=== PATIENT | male | born 1955 | race Caucasian/White ===

== ENCOUNTER 2016-11-01 14:25 | Emergency (ER) | payer OTHER ==
[~2016-11-01] VITALS: Ht 172.7 cm; Wt 90.0 kg
[~2016-11-01 14:25] MED LIST: ATOR10TA15 PO; CARV3.125 PO; CLON.5 PO; CYCL1TAB29 PO; GETGO ROLLING W1 MI1; HYDR-3288 PO; LEVE500 PO; LURA40 PO; NEUR400C PO; OMEP40CA2 PO; SYMB80AE INH; TRAZ50TA12 PO; VENTAER INH; ZOLO100T PO
[2016-11-01 14:35] VITALS: BP 138/74; PULSE 92; RESP 15; TEMP 98; O2SAT 99
[2016-11-01 14:37] VITALS: TEMP 100.1
[2016-11-01 15:28] VITALS: BP 125/90; PULSE 82; RESP 16; O2SAT 98
[2016-11-01] MEDS ORDERED: KETOROLAC TROMETHAMINE 30 MG/ML (IVP) VIAL IVP ONE (15:30)
[2016-11-01] MEDS ORDERED: CLINDAMYCIN INJ 600 MG in SODIUM CHLORIDE 0.9% INJ 100 ML IV ONE (15:30)
[2016-11-01 15:46] LABS: AUTOMATED NEUTROPHIL # 14.4 TH/MM3 (1.8-7.7); BASOPHIL # 0.1 TH/MM3 (0-0.2); BASOPHIL % 0.5 % (0.0-2.0); EOSINOPHIL # 0.1 TH/MM3 (0-0.4); EOSINOPHIL % 0.4 % (0.0-4.0); HEMATOCRIT 44.7 % (39.0-51.0); HEMO FLAGS DIFF FINAL; LYMPH % 7.4 % (9.0-44.0); LYMPHOCYTE # 1.3 TH/MM3 (1.0-4.8); MEAN CELL VOLUME 103.3 FL (80.0-100.0); MEAN CORPUSCULAR HEMOGLOBIN 36.1 PG (27.0-34.0); MEAN CORPUSCULAR HGB CONC 34.9 % (32.0-36.0); NEUT % 81.7 % (16.0-70.0); PLATELET COUNT 252 TH/MM3 (150-450); RED BLOOD COUNT 4.33 MIL/MM3 (4.50-5.90); RED CELL DISTRIBUTION WIDTH 13.6 % (11.6-17.2); WHITE BLOOD COUNT 17.6 TH/MM3 (4.0-11.0)
[2016-11-01 16:02] LABS: BICARBONATE 26.3 MEQ/L (21.0-32.0); POTASSIUM 3.8 MEQ/L (3.5-5.1)
--- NOTE | 2016-11-01 16:20 | PD ---
HPI Chief Complaint: Skin Problem Time Seen by Provider: 16:16 Travel History International Travel<30 days: No Contact w/Intl Traveler<30days: No Traveled to known affect area: No History of Present Illness HPI 61-year-old male that presents to the ED for evaluation of lower leg swelling and pain. Per patient she's had this for the past 5 days. Patient denies any injury. He is homeless. Patient is legally blind. He does state that he has some weakness and fever. He has not seen anybody for this. He denies any chest pain or shortness of breath. No back pain. No urinary or bowel movement issues. Per patient the left leg is worse than the right. He does have a history of MRSA. No obvious history of IV drug abuse. He does have a history of substance abuse in the past. Denies any injuries. He does have open wounds to both lower legs with left worse than right. PFSH Past Medical History Hx Anticoagulant Therapy: Yes Autoimmune Disease: No Anxiety: Yes Depression: Yes Heart Rhythm Problems: No Cancer: No Cardiovascular Problems: Yes ([place]) High Cholesterol: Yes Chemotherapy: No Chest Pain: Yes Congestive Heart Failure: No COPD: Yes Cerebrovascular Accident: Yes Coronary Artery Disease: Yes Diabetes: No Diminished Hearing: No Deep Vein Thrombosis: Yes (per hx,,,LEFT LEG) Endocrine: No Genitourinary: No Headaches: No Hypertension: Yes Immune Disorder: No Implanted Vascular Access Dvce: No Musculoskeletal: No Neurologic: Yes Psychiatric: Yes Reproductive: No Respiratory: Yes (COPD) Immunizations Current: Yes Migraines: Yes Myocardial Infarction: Yes (per hx...2011) Pneumonia: Yes Seizures: Yes (Per hx) Influenza Vaccination: Yes Past Surgical History Abdominal Surgery: Yes ("RPG") AICD: No Arteriovenous Shunt: No Cardiac Surgery: No Ear Surgery: No Endocrine Surgery: No Eye Surgery: No Genitourinary Surgery: No Hysterectomy: No Insulin Pump: No Joint Replacement: No Oral Surgery: No Pacemaker: No Thoracic Surgery: No Tonsillectomy: Yes Other Surgery: Yes (brachial plexis) Social History Alcohol Use: Yes (per hx...2 BEERS DAILY ) Tobacco Use: Yes (/ PPD) Substance Use: Yes (pt denies ) Allergies-Medications (Allergen,Severity, Reaction): Coded Allergies: Contrast Media (Verified Allergy, Severe, ANAPHYLACTIC SHOCK, 11/01/16) Dantrium (Verified Allergy, Severe, LIVER DISEASE, 11/01/16) Halcion (Verified Allergy, Severe, CRAZY, 11/01/16) Iodine (Verified Allergy, Severe, anaphylaxis, 11/01/16) Tegretol (Verified Allergy, Severe, APLASTIC ANEMIA, 11/01/16) Shellfish (Verified Allergy, Unknown, 11/01/16) *MDRO Multi-Drug Resistant Organism (Verified Adverse Reaction, Unknown, ) MRSA (ankle) - 01/16/16 MRSA PCR screen NEGATIVE 08/10/16 & 08/12/16 Cleared per Infection Control Reported Meds & Prescriptions Reported Meds & Active Scripts Active Diclofenac Sodium DR (Diclofenac Sodium) 75 Mg Tabdr 75 Mg PO BID PRN Keflex (Cephalexin) 500 Mg Capsule 500 Mg PO Q8H 10 Days Bactrim DS (Sulfamethoxazole-Trimethoprim) 800-160 Mg Tab 1 Tab PO BID 10 Days Omeprazole 40 Mg Cap 40 Mg PO DAILY Neurontin (Gabapentin) 400 Mg Cap 400 Mg PO TID Klonopin (Clonazepam) 0.5 Mg Tab 0.5 Mg PO Q12HR Ventolin Hfa 18 GM Inh (Albuterol Sulfate) 90 Mcg/Act Aer 2 Puff INH Q2HR PRN Symbicort Inh (Budesonide/Formoterol Fumarate) 80-4.5 Mcg/Act Aero 1 Puff INH Q12HR Trazodone (Trazodone HCl) 50 Mg Tab 50 Mg PO HS PRN Keppra (Levetiracetam) 500 Mg Tab 500 Mg PO BID Coreg (Carvedilol) 3.125 Mg Tab 3.125 Mg PO BID Atorvastatin (Atorvastatin Calcium) 10 Mg Tab 10 Mg PO HS Reported Zoloft (Sertraline HCl) 100 Mg Tab 100 Mg PO BID [place] (Hydrocodone-Acetaminophen) 7.5-325 mg Tab 1 Tab PO Q4H PRN Flexeril (Cyclobenzaprine HCl) 10 Mg Tab 10 Mg PO TID PRN Review of Systems Except as stated in HPI: all other systems reviewed are Neg Physical Exam Narrative GENERAL: SKIN: Warm and dry. HEAD: Atraumatic. Normocephalic. EYES: Pupils equal and round. No scleral icterus. No injection or drainage. ENT: No nasal bleeding or discharge. Mucous membranes pink and moist. Tongue is midline. No uvula deviation. NECK: Trachea midline. No JVD. CARDIOVASCULAR: Regular rate and rhythm. No murmurs, S3, S4. RESPIRATORY: No accessory muscle use. Clear to auscultation. Breath sounds equal bilaterally. GASTROINTESTINAL: Abdomen soft, non-tender, nondistended. Hepatic and splenic margins not palpable. MUSCULOSKELETAL: Extremities without clubbing, cyanosis, or edema. No obvious deformities. Full range of motion of the upper and lower extremities bilaterally. Patient does have 1+ pitting edema in the lower legs left worse than right. Left leg has erythema is warm to the touch. Patient does have pus coming out of open wounds on the right and left leg with the left leg more noticeable. No obvious abscesses noted. 2+ pulses bilaterally. NEUROLOGICAL: Awake and alert. No obvious cranial nerve deficits. Motor grossly within normal limits. Five out of 5 muscle strength in the arms and legs. Normal speech. PSYCHIATRIC: Appropriate mood and affect; insight and judgment normal. Data Data Last Documented VS Vital Signs Date Time Temp Pulse Resp B/P Pulse Ox O2 Delivery O2 Flow Rate FiO2 11/01/16 15:28 82 16 125/90 98 Room Air 11/01/16 14:37 100.1 Orders Basic Metabolic Panel (Bmp) (11/01/16 15:22) Complete Blood Count With Diff (11/01/16 15:22) Blood Culture (11/01/16 15:22) Wound Culture And Gram Stain (11/01/16 15:22) Iv Access Insert/Monitor (11/01/16 15:22) Ketorolac Inj (Toradol Inj) (11/01/16 15:30) Clindamycin Inj (Cleocin Inj) (11/01/16 15:30) Us Leg Venous Doppler Bilat (11/01/16 ) Labs Laboratory Tests Test 11/01/16 15:30 White Blood Count 17.6 TH/MM3 Red Blood Count 4.33 MIL/MM3 Hemoglobin 15.6 GM/DL Hematocrit 44.7 % Mean Corpuscular Volume 103.3 FL Mean Corpuscular Hemoglobin 36.1 PG Mean Corpuscular Hemoglobin 34.9 % Concent Red Cell Distribution Width 13.6 % Platelet Count 252 TH/MM3 Mean Platelet Volume 8.1 FL Neutrophils (%) (Auto) 81.7 % Lymphocytes (%) (Auto) 7.4 % Monocytes (%) (Auto) 10.0 % Eosinophils (%) (Auto) 0.4 % Basophils (%) (Auto) 0.5 % Neutrophils # (Auto) 14.4 TH/MM3 Lymphocytes # (Auto) 1.3 TH/MM3 Monocytes # (Auto) 1.8 TH/MM3 Eosinophils # (Auto) 0.1 TH/MM3 Basophils # (Auto) 0.1 TH/MM3 CBC Comment DIFF FINAL Differential Comment Sodium Level 134 MEQ/L Potassium Level 3.8 MEQ/L Chloride Level 99 MEQ/L Carbon Dioxide Level 26.3 MEQ/L Anion Gap 9 MEQ/L Blood Urea Nitrogen 9 MG/DL Creatinine 0.91 MG/DL Estimat Glomerular Filtration 84 ML/MIN Rate Random Glucose 95 MG/DL Calcium Level 8.8 MG/DL MDM Medical Decision Making Medical Screen Exam Complete: Yes Emergency Medical Condition: Yes Medical Record Reviewed: Yes Interpretation(s) CBC & BMP Diagram 11/01/16 15:30 Last Impressions Lower Extremity Ultrasound 11/01/16 0000 Signed Impressions: Service Date/Time: Tuesday, November 01, 2016 15:50 - CONCLUSION: 1. Lower extremity edema but no DVT in either lower extremity. 2. Enlarged lymph nodes in each groin measuring 2.5 cm on the right and 3.1 cm on the left. Anshul Davis MD Differential Diagnosis Cellulitis versus MRSA versus DVT versus sepsis versus abscess Narrative Course 61-year-old male that presents to the ED for evaluation of lower leg swelling and pain. Patient was properly examined and was found to have signs and symptoms consistent appears to be likely cellulitis. Labs and imaging ordered. Patient was started on IV clindamycin. Labs and imaging showed leukocytosis and lymphadenopathy. Case was discussed in my attending Dr. Kemp who when evaluated the patient with me. He recommends at this time outpatient trial of antibiotics as patient has not had any antibiotics recently. This was discussed with the patient was in agreement with plan. Patient was given prescription for Bactrim and Keflex as well as diclofenac sodium for pain. Told to recheck in 48 hours if not better. See ED worsening symptoms. Follow with PCP. Sepsis Criteria SIRS Criteria (2 or more): WBC > 19908, < 4000 or > 10% bands Diagnosis Primary Impression: Cellulitis Qualified Code: L03.119 - Cellulitis of lower extremity, unspecified laterality Patient Instructions: General Instructions Additional Instructions: Take medications as prescribed. Follow with PCP. See ED for worsening symptoms. Recheck in 48 hours if not better Med/Other Pt SpecificInfo: Prescription(s) given Scripts Diclofenac Sodium DR 75 Mg Tabdr75 Mg PO BID PRN (PAIN SCALE 1 TO 10) #20 TAB Prov:Сергей Card MD 11/01/16 Cephalexin (Keflex)500 Mg [id number] Mg PO Q8H 10 Days Ref 0 Prov:Сергей Card MD 11/01/16 Sulfamethoxazole-Trimethoprim (Bactrim DS)800-160 Mg Tab1 Tab PO BID 10 Days Prov:Сергей Card MD 11/01/16 Disposition: 01 DISCHARGE HOME Condition: Stable William Sharp Nov 01, 2016 16:20
--- NOTE | 2016-11-01 16:24 | RADRPT ---
EXAM DATE/TIME: 11/01/2016 15:50 [facility] COMPARISON: No previous studies available for comparison. INDICATIONS : Bilateral leg swelling. MEDICAL HISTORY : Myocardial infarction. Hypercholesterolemia. Legally blind. CVA. Seizures. Migraines. Coronary arter y disease. HTN. COPD. Chest pain. DVT. Pneumonia. Blood transfusions. MRSA. SURGICAL HISTORY : Tonsillectomy. Left shoulder. Left knee. Brachial plexis. ENCOUNTER: Initial ACUITY: 1 day PAIN SCORE: 4/10 LOCATION: Bilateral leg. TECHNIQUE: Venous ultrasound of the left and right leg was performed from the inguinal ligament to the proximal calf. Real-time, color Doppler and spectral tracing, compression and augmentation techniques were us ed. FINDINGS: RIGHT LEG: There is normal compressibility of the deep venous system from the inguinal region to the proximal ca lf. No echogenic clot is seen in the lumen of the common femoral, femoral, popliteal, and posterior tibial veins. There is a normal response of the venous system to proximal and distal augmentation an d respiration. LEFT LEG: There is normal compressibility of the deep venous system from the inguinal region to the proximal ca lf. No echogenic clot is seen in the lumen of the common femoral, femoral, popliteal, and posterior tibial veins. There is a normal response of the venous system to proximal and distal augmentation an d respiration. CONCLUSION: 1. Lower extremity edema but no DVT in either lower extremity. 2. Enlarged lymph nodes in each groin measuring 2.5 cm on the right and 3.1 cm on the left. Anshul Davis MD on November 01, 2016 at 16:22 Board Certified Radiologist. This report was verified electronically.
[2016-11-01] MEDS ORDERED: ZOLO100T PO (16:37)
[2016-11-01] MEDS ORDERED: DICL75TA PO (16:47)
[2016-11-01] MEDS ORDERED: CEPH-460 PO (16:47)
[2016-11-01] MEDS ORDERED: BACT800T5 PO (16:47)
== END 2016-11-01 17:36 | disposition home or self-care (01) ==
LOC: NEPC 14:25
DX: L03.119 Cellulitis of unspecified part of limb (principal); E78.00 Pure hypercholesterolemia, unspecified; Z86.718 Personal history of other venous thrombosis and embolism; Z79.01 Long term (current) use of anticoagulants; Z86.14 Personal history of Methicillin resistant Staphylococcus aureus infection
CPT/HCPCS: 80048; 85025; 86403; 87040; 87070; 87186; 93970; 96365; 96375; 99285; J1885; 87205

== ENCOUNTER 2016-11-01 18:51 | Emergency (ER) | payer OTHER ==
[~2016-11-01] VITALS: Ht 172.7 cm; Wt 90.0 kg
[~2016-11-01 18:51] MED LIST changes: +BACT800T5 PO; +CEPH-460 PO; +DICL75TA PO
[2016-11-01 19:00] VITALS: BP 148/78; PULSE 82; RESP 15; TEMP 97.8; O2SAT 99
--- NOTE | 2016-11-01 21:51 | PD ---
HPI Chief Complaint: Medical Clearance Time Seen by Provider: 21:00 Travel History International Travel<30 days: No Contact w/Intl Traveler<30days: No Traveled to known affect area: No History of Present Illness HPI Patient back to the emergency department after being seen here a few hours ago in discharge. Patient states he went to the bus stop but did not catch his bus so he decided the emergency department for possible additional treatments and something to eat. Patient denies any new or change in symptoms. Denies any known fever, nausea, vomiting or chest pain, shortness of breath, numbness or tingling, or new injuries. Patient denies anything making this better or worse. History Past Medical Histgory Hx Cancer: No Hx Chemotherapy: No Social History Alcohol Use: Yes (per hx...2 BEERS DAILY ) Tobacco Use: Yes (3/4 PPD) Allergies-Medications (Allergen,Severity, Reaction): Coded Allergies: Contrast Media (Verified Allergy, Severe, ANAPHYLACTIC SHOCK, 11/01/16) Dantrium (Verified Allergy, Severe, LIVER DISEASE, 11/01/16) Halcion (Verified Allergy, Severe, CRAZY, 11/01/16) Iodine (Verified Allergy, Severe, anaphylaxis, 11/01/16) Tegretol (Verified Allergy, Severe, APLASTIC ANEMIA, 11/01/16) Shellfish (Verified Allergy, Unknown, 11/01/16) *MDRO Multi-Drug Resistant Organism (Verified Adverse Reaction, Unknown, ) MRSA (ankle) - 01/16/16 MRSA PCR screen NEGATIVE 08/10/16 & 08/12/16 Cleared per Infection Control Reported Meds & Prescriptions Reported Meds & Active Scripts Active Diclofenac Sodium DR (Diclofenac Sodium) 75 Mg Tabdr 75 Mg PO BID PRN Keflex (Cephalexin) 500 Mg Capsule 500 Mg PO Q8H 10 Days Bactrim DS (Sulfamethoxazole-Trimethoprim) 800-160 Mg Tab 1 Tab PO BID 10 Days Omeprazole 40 Mg Cap 40 Mg PO DAILY Neurontin (Gabapentin) 400 Mg Cap 400 Mg PO TID Klonopin (Clonazepam) 0.5 Mg Tab 0.5 Mg PO Q12HR Ventolin Hfa 18 GM Inh (Albuterol Sulfate) 90 Mcg/Act Aer 2 Puff INH Q2HR PRN Symbicort Inh (Budesonide/Formoterol Fumarate) 80-4.5 Mcg/Act Aero 1 Puff INH Q12HR Trazodone (Trazodone HCl) 50 Mg Tab 50 Mg PO HS PRN Keppra (Levetiracetam) 500 Mg Tab 500 Mg PO BID Coreg (Carvedilol) 3.125 Mg Tab 3.125 Mg PO BID Atorvastatin (Atorvastatin Calcium) 10 Mg Tab 10 Mg PO HS Reported Zoloft (Sertraline HCl) 100 Mg Tab 100 Mg PO BID [place] (Hydrocodone-Acetaminophen) 7.5-325 mg Tab 1 Tab PO Q4H PRN Flexeril (Cyclobenzaprine HCl) 10 Mg Tab 10 Mg PO TID PRN Review of Systems Except as stated in HPI: all other systems reviewed are Neg Physical Exam Narrative GENERAL: Well-developed, overly nourished, in no acute distress, and non-ill appearing. SKIN: Patient has cellulitis of left lower extremity is mildly febrile, erythematous, and nontender. There is no induration, fluctuation, drainage, or crepitus. HEAD: Atraumatic. Normocephalic. EYES: Pupils equal and round. EOMI. No scleral icterus. No injection or drainage. ENT: No nasal bleeding or discharge. Mucous membranes pink and moist. NECK: Trachea midline. Supple. No nuclear rigidity. CARDIOVASCULAR: Regular rate and rhythm. No murmur appreciated. RESPIRATORY: No accessory muscle use. No respiratory distress. Clear to auscultation. Breath sounds equal bilaterally. MUSCULOSKELETAL: No obvious deformities. No clubbing. No cyanosis. Soft tissue swelling of left lower extremities. Full range of motion. NEUROLOGICAL: Awake and alert. No obvious cranial nerve deficits. Motor grossly within normal limits. Normal speech. PSYCHIATRIC: Appropriate mood and affect; insight and judgment normal. Data Data Last Documented VS Vital Signs Date Time Temp Pulse Resp B/P Pulse Ox O2 Delivery O2 Flow Rate FiO2 11/01/16 19:00 97.8 82 15 148/78 99 MDM Medical Screen Exam Complete: Yes Emergency Medical Condition: No Narrative Course History and physical exam findings are not consistent with an emergent medical condition. Previous laboratories were reviewed. Discussed patient with Dr. Warren, who is in agreement with plan of care. Instructed to take antibiotic as previously prescribed He was given the option of receiving additional care, but has declined. Therefore the appropriate counseling recommendations were discussed with the patient and he was instructed to follow-up with his primary care physician as soon as possible for reevaluation and return here in 24-48 hours for recheck as previously instructed. Patient was also informed of community resources from which he can obtain additional care. He is agreeable and verbalizes an understanding of the proposed plan. The patient states he will immediately return to the emergency department if his current complaints do not improve, new symptoms arise, or emergent condition develops. Patient ambulated out of the emergency department without difficulty. Primary Impression: Encounter for medical screening examination Disposition: [facility]-ED USE ONLY Condition: Stable Wyatt Gutierrez Nov 01, 2016 21:51
== END 2016-11-01 21:22 | disposition left against medical advice (07) ==
LOC: NEPD 18:51
DX: Z02.9 Encounter for administrative examinations, unspecified (principal)
CPT/HCPCS: 99281

== ENCOUNTER 2017-03-17 16:09 | Inpatient (IN) | payer OTHER ==
[~2017-03-17] VITALS: Ht 175.3 cm; Wt 92.4 kg
[~2017-03-17 16:09] MED LIST changes: +CYCL10TA PO; -CYCL1TAB29 PO; -GETGO ROLLING W1 MI1; -LURA40 PO
[2017-03-17 16:10] VITALS: BP 136/86; PULSE 68; RESP 16; TEMP 98.4; O2SAT 96
[2017-03-17 17:53] LABS: AUTOMATED NEUTROPHIL # 4.6 TH/MM3 (1.8-7.7); BASOPHIL # 0.1 TH/MM3 (0-0.2); BASOPHIL % 0.8 % (0.0-2.0); EOSINOPHIL # 0.2 TH/MM3 (0-0.4); EOSINOPHIL % 2.1 % (0.0-4.0); HEMATOCRIT 42.1 % (39.0-51.0); HEMO FLAGS DIFF FINAL; LYMPH % 31.2 % (9.0-44.0); LYMPHOCYTE # 2.6 TH/MM3 (1.0-4.8); MEAN CORPUSCULAR HEMOGLOBIN 37.5 PG (27.0-34.0); NEUT % 55.9 % (16.0-70.0); PLATELET COUNT 146 TH/MM3 (150-450); RED BLOOD COUNT 3.94 MIL/MM3 (4.50-5.90); RED CELL DISTRIBUTION WIDTH 12.9 % (11.6-17.2); WHITE BLOOD COUNT 8.3 TH/MM3 (4.0-11.0)
[2017-03-17 18:30] LABS: ALT (GPT) 32 U/L (12-78); ANION GAP 7 MEQ/L (5-15); AST (GOT) 30 U/L (15-37); BICARBONATE 24.8 MEQ/L (21.0-32.0); BLOOD UREA NITROGEN 10 MG/DL (7-18); CHLORIDE 105 MEQ/L (98-107); GLOMERULAR FILTRATION RATE 91 ML/MIN (>89); POTASSIUM 3.5 MEQ/L (3.5-5.1); SODIUM (NA) 137 MEQ/L (136-145)
[2017-03-17 18:32] LABS: ALKALINE PHOSPHATASE 67 U/L (45-117); TOTAL BILIRUBIN ADULT 0.4 MG/DL (0.2-1.0)
--- NOTE | 2017-03-17 19:18 | PD ---
HPI Chief Complaint: Psychiatric Symptoms Time Seen by Provider: 19:17 Travel History International Travel<30 days: No Contact w/Intl Traveler<30days: No Traveled to known affect area: No History of Present Illness HPI 61-year-old male presents to the ED under Harper act for psychiatric evaluation. According to the Harper act paper work the patient states he is suicidal and has a plan. On evaluation the patient is refusing to answer any questions about history or allow us to evaluate him. PFSH Past Medical History Hx Anticoagulant Therapy: Yes Autoimmune Disease: No Anxiety: Yes Depression: Yes Heart Rhythm Problems: No Cancer: No Cardiovascular Problems: Yes ([place]) High Cholesterol: Yes Chemotherapy: No Chest Pain: Yes Congestive Heart Failure: No COPD: Yes Cerebrovascular Accident: Yes Coronary Artery Disease: Yes Diabetes: No Diminished Hearing: No Deep Vein Thrombosis: Yes (per hx,,,LEFT LEG) Endocrine: No Gastrointestinal Disorders: No Genitourinary: No Headaches: No Hypertension: Yes Immune Disorder: No Implanted Vascular Access Dvce: No Musculoskeletal: No Neurologic: Yes Psychiatric: Yes Reproductive: No Respiratory: Yes (COPD) Immunizations Current: Yes Migraines: Yes Myocardial Infarction: Yes (per hx...2011) Pneumonia: Yes Seizures: Yes (Per hx) Past Surgical History Abdominal Surgery: Yes ("RPG") AICD: No Arteriovenous Shunt: No Cardiac Surgery: No Ear Surgery: No Endocrine Surgery: No Eye Surgery: No Genitourinary Surgery: No Hysterectomy: No Insulin Pump: No Joint Replacement: No Neurologic Surgery: No Oral Surgery: No Pacemaker: No Thoracic Surgery: No Tonsillectomy: Yes Other Surgery: Yes (brachial plexis) Social History Alcohol Use: Yes (per hx...2 BEERS DAILY ) Tobacco Use: Yes (3/4 PPD) Substance Use: Yes (pt denies ) Allergies-Medications (Allergen,Severity, Reaction): Coded Allergies: carbamazepine (Unverified Allergy, Severe, APLASTIC ANEMIA, 03/17/17) dantrolene (Unverified Allergy, Severe, LIVER DISEASE, 03/17/17) diatrizoate meglumine (Unverified Allergy, Severe, ANAPHYLACTIC SHOCK, 03/17/17) gadobenic acid (Unverified Allergy, Severe, ANAPHYLACTIC SHOCK, 03/17/17) gadodiamide (Unverified Allergy, Severe, ANAPHYLACTIC SHOCK, 03/17/17) gadoteridol (Unverified Allergy, Severe, ANAPHYLACTIC SHOCK, 03/17/17) iodine (Unverified Allergy, Severe, anaphylaxis, 03/17/17) iodixanol (Unverified Allergy, Severe, ANAPHYLACTIC SHOCK, 03/17/17) iohexol (Unverified Allergy, Severe, ANAPHYLACTIC SHOCK, 03/17/17) potassium iodide (Unverified Allergy, Severe, anaphylaxis, 03/17/17) povidone-iodine (Unverified Allergy, Severe, anaphylaxis, 03/17/17) sodium iodide (Unverified Allergy, Severe, anaphylaxis, 03/17/17) sodium iodide (Unverified Allergy, Severe, anaphylaxis, 03/17/17) triazolam (Unverified Allergy, Severe, CRAZY, 03/17/17) shellfish derived (Unverified Allergy, Unknown, 03/17/17) *MDRO Multi-Drug Resistant Organism (Verified Adverse Reaction, Unknown, 03/17/17) MRSA (ankle) - 01/16/16 MRSA PCR screen NEGATIVE 08/10/16 & 08/12/16 Cleared per Infection Control Reported Meds & Prescriptions Reported Meds & Active Scripts Active Diclofenac Sodium DR (Diclofenac Sodium) 75 Mg Tabdr 75 Mg PO BID PRN Keflex (Cephalexin) 500 Mg Capsule 500 Mg PO Q8H 10 Days Bactrim DS (Sulfamethoxazole-Trimethoprim) 800-160 Mg Tab 1 Tab PO BID 10 Days Omeprazole 40 Mg Cap 40 Mg PO DAILY Neurontin (Gabapentin) 400 Mg Cap 400 Mg PO TID Klonopin (Clonazepam) 0.5 Mg Tab 0.5 Mg PO Q12HR Ventolin Hfa 18 GM Inh (Albuterol Sulfate) 90 Mcg/Act Aer 2 Puff INH Q2HR PRN Symbicort Inh (Budesonide/Formoterol Fumarate) 80-4.5 Mcg/Act Aero 1 Puff INH Q12HR Trazodone (Trazodone HCl) 50 Mg Tab 50 Mg PO HS PRN Keppra (Levetiracetam) 500 Mg Tab 500 Mg PO BID [place] (Carvedilol) 3.125 Mg Tab 3.125 Mg PO BID Atorvastatin (Atorvastatin Calcium) 10 Mg Tab 10 Mg PO HS Reported Zoloft (Sertraline HCl) 100 Mg Tab 100 Mg PO BID [place] (Hydrocodone-Acetaminophen) 7.5-325 mg Tab 1 Tab PO Q4H PRN Flexeril (Cyclobenzaprine HCl) 10 Mg Tab 10 Mg PO TID PRN Review of Systems ROS Limitations: Uncooperative, Refused Except as stated in HPI: all other systems reviewed are Neg Physical Exam Exam Limitations: Uncooperative, Refused Narrative GENERAL: Well-nourished, well-developed white male, sitting in a chair in no acute distress. SKIN: Focused skin assessment warm/dry. HEAD: Normocephalic. EYES: No scleral icterus. No injection or drainage. RESPIRATORY: No accessory muscle use. GASTROINTESTINAL: Nondistended. MUSCULOSKELETAL: No cyanosis, or edema. Left arm is in a sling. BACK: No obvious deformity Data Data Last Documented VS Vital Signs Date Time Temp Pulse Resp B/P (MAP) Pulse Ox O2 Delivery O2 Flow Rate FiO2 03/17/17 20:32 98.6 65 18 136/94 (108) 99 Room Air Orders Orders Complete Blood Count With Diff (03/17/17 17:12) Comprehensive Metabolic Panel (03/17/17 17:12) Psych Screen (03/17/17 17:12) Drug Screen, Random Urine (03/17/17 17:12) Diet Regular Basic (03/17/17 Dinner) Labs Laboratory Tests Test 03/17/17 17:00 03/17/17 17:23 Urine Opiates Screen NEG Urine Barbiturates Screen NEG Urine Amphetamines Screen NEG Urine Benzodiazepines Screen NEG Urine Cocaine Screen NEG Urine Cannabinoids Screen POS White Blood Count 8.3 TH/MM3 Red Blood Count 3.94 MIL/MM3 Hemoglobin 14.7 GM/DL Hematocrit 42.1 % Mean Corpuscular Volume 107.0 FL Mean Corpuscular Hemoglobin 37.5 PG Mean Corpuscular Hemoglobin Concent 35.0 % Red Cell Distribution Width 12.9 % Platelet Count 146 TH/MM3 Mean Platelet Volume 8.1 FL Neutrophils (%) (Auto) 55.9 % Lymphocytes (%) (Auto) 31.2 % Monocytes (%) (Auto) 10.0 % Eosinophils (%) (Auto) 2.1 % Basophils (%) (Auto) 0.8 % Neutrophils # (Auto) 4.6 TH/MM3 Lymphocytes # (Auto) 2.6 TH/MM3 Monocytes # (Auto) 0.8 TH/MM3 Eosinophils # (Auto) 0.2 TH/MM3 Basophils # (Auto) 0.1 TH/MM3 CBC Comment DIFF FINAL Differential Comment Blood Urea Nitrogen 10 MG/DL Creatinine 0.85 MG/DL Random Glucose 86 MG/DL Total Protein 6.8 GM/DL Albumin 3.6 GM/DL Calcium Level 8.4 MG/DL Alkaline Phosphatase 67 U/L Aspartate Amino Transf (AST/SGOT) 30 U/L Alanine Aminotransferase (ALT/SGPT) 32 U/L Total Bilirubin 0.4 MG/DL Sodium Level 137 MEQ/L Potassium Level 3.5 MEQ/L Chloride Level 105 MEQ/L Carbon Dioxide Level 24.8 MEQ/L Anion Gap 7 MEQ/L Estimat Glomerular Filtration Rate 91 ML/MIN MDM Medical Decision Making Medical Screen Exam Complete: Yes Emergency Medical Condition: Yes Differential Diagnosis Adjustment disorder versus anxiety versus bipolar versus depression versus dementia versus electrolyte disorder versus malingering versus mood disorder versus ODD versus psychosis versus PTSD versus schizophrenia versus schizoaffective disorder versus substance-induced mood disorder versus other Narrative Course 61-year-old male presents to the ED via Harper act for psychiatric evaluation. According to the Harper paperwork the patient is suicidal and has a plan. On evaluation the patient is refusing to answer any history questions or allow me to bleed a physical exam. Vitals reviewed. No concerning abnormalities of the labs. Tox screen positive for cannabinoids. Patient is medically clear for psychiatric evaluation. Elaine Garrison Mar 17, 2017 19:18
[2017-03-17 20:32] VITALS: BP 136/94; PULSE 65; RESP 18; TEMP 98.6; O2SAT 99
[2017-03-17] MEDS ORDERED: LORazepam 2 MG/ML VIAL IV PUSH PRN ×4 (23:30)
[2017-03-17] MEDS ORDERED: ALUMINUM/MAGNESIUM/SIMETH 30 ML CUP PO PRN (23:30)
[2017-03-17] MEDS ORDERED: FLUMAZENIL 0.5 MG/5 ML VIAL IV PUSH PRN (23:30)
[2017-03-17] MEDS ORDERED: MAGNESIUM HYDROXIDE SUSP 30 ML CUP PO PRN (23:30)
[2017-03-17] MEDS ORDERED: LORazepam 2 MG TAB PO PRN (23:30)
[2017-03-17] MEDS ORDERED: diphenhydrAMINE HCL 50 MG/ML VIAL IM PRN (23:30)
[2017-03-17] MEDS ORDERED: LORazepam 1 MG TAB PO PRN (23:30)
[2017-03-18 05:59] VITALS: BP 151/83; PULSE 69; RESP 16; TEMP 98.5; O2SAT 97
--- NOTE | 2017-03-18 08:46 | MH ---
cc: ALEX BROWN DATE OF ADMISSION 03/17/2017 ADMISSION DIAGNOSES 1. Adjustment disorder with disturbance of emotions and conduct, F43.25 2. Polysubstance dependence, F19.20 3. Suspected malingering for fpc 4. Antisocial personality traits LEGAL STATUS The patient is presently admitted involuntarily. I have completed first opinion and will consult for a second opinion. The patient does retain capacity to consent for medications. HISTORY OF PRESENT ILLNESS Mr. Small is a 61-year-old male with a reported history of bipolar disorder and PTSD who presents under a Harper ACT by the [place] [employer] alleging that the patient said that he was having issues with obtaining a cell phone and was done with life. He allegedly told the officer that he was going to kill himself by passing out drunk and laying in the railroad tracks. Reviewing our electronic medical record, I note that the patient was admitted most recently here in June of this year under Dr. Rivera. He is noted in Dr. Rivera's discharge summary to have been demanding and entitled throughout his hospital stay. He was also noted to be easily agitated and threatening to other patients if he felt criticized or slighted. The patient's alcohol level on presentation here was 165 and his urine toxicology was positive for cannabinoids. The patient was seen and examined with nurse. Chart reviewed. Case discussed with nursing staff. On my examination this morning, the patient is clinically sober. He presents as fairly manipulative and antisocial. He tells me "I have been devoting my whole time and energy to getting a place. I have been trying to get a phone." The patient relates that he went to [facility], but there was some issue with a security code on his credit card. He says that he corrected this issue and tried to call back yesterday to obtain a cell phone, but "the idiot I talked to, broke me." He says "all I do is lose. As soon as I get out of here I am going to kill myself. Life has been too much for me. All I do is lose. Why play the game?" He says that his plan is to drink a 1.75 liter bottle of rum and go pass out on the railroad tracks until a train hits him. He endorses low mood, anhedonia, hopeless feelings. No reported sleep or appetite disturbance. He says that he has been nonadherent with his psychotropic medications for about four days, and these were most recently Zoloft and Risperdal. He endorses auditory hallucinations of "people talking to me about God, evil." He does not appear internally stimulated. He also reports that he is visually impaired, although he was noted to navigate the hallway to the interview room without difficulty, and he reports that he sees a taxicab in the area that his visual field would normally occupy. No delusional beliefs. No reported PTSD symptoms. The remainder of the psychiatric ROS is negative. The patient verbalizes no physical complaints at this time. PAST PSYCHIATRIC HISTORY The patient reports a history of bipolar disorder and PTSD. He is not currently under the care of a psychiatrist. He was most recently prescribed Risperdal in an uncertain dose and Zoloft 100 mg daily. He also says that he takes trazodone as needed for sleep. His most recent psychiatric admission was here at [facility] in June. He endorses previous suicide attempt by trying to drink himself to , overdose on pain medications and also he alleges that he tried to hijack a private plane in order to jump from it. FAMILY HISTORY The patient denies any family history of mental illness. CHEMICAL DEPENDENCY HISTORY The patient reports that he drinks about 16 beers a day. He also drinks some liquor on weekends. He says that he had two beers yesterday. He denies a history of DTs. He denies a history of withdrawal seizures, although he does report a history of seizures from other causes in the past. He smokes cannabis occasionally. He also smokes cigars. His longest sober time from any substance was three months. SOCIAL HISTORY The patient is homeless. He is on disability. He reports that he is college educated and studied engineering. 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 He was previously . He has a daughter that he says he did not even know he had until about a year and half ago. He served in the [employer] and had an honorable discharge he tells me. He denies any active legal issues besides an open container charge. He says that he "used to" have uatsdin/spiritual beliefs. No reported access to guns or firearms. PAST MEDICAL HISTORY See electronic medical record. This reportedly includes: 1. A history of crush injury to his left arm about a year ago. 2. A history of subdural hematoma with resultant seizures. 3. Also macular degeneration with resultant visual impairment. MEDICATIONS See electronic medical record. ALLERGIES Multiple allergies including to CARBAMAZEPINE, DANTROLENE, IODINE AND ASSOCIATED PRODUCTS AND TRIAZOLAM. See electronic medical record. REVIEW OF SYSTEMS Except as in HPI, no reported physical complaints. PHYSICAL EXAMINATION VITAL SIGNS: Temperature 98.5, pulse 69, respirations 16, blood pressure 151/83, pulse oximetry 97% on room air. A physical examination was completed by the ED provider. On my examination today, the patient appears to be in no acute physical distress. No motor abnormalities noted. No signs of alcohol intoxication or withdrawal noted. LABORATORY Reviewed: CBC is unremarkable except for macrocytosis without anemia. CMP is unremarkable. Alcohol level was 165 on presentation here and urine toxicology was positive for cannabinoids. I do not see a recent TSH or EKG. Vitamin B12 level was 317 when checked in July of this year. MENTAL STATUS EXAM The patient is in hospital gown. He is fairly disheveled. He is awake, alert and oriented x4. No evidence of delirium. No motor abnormalities noted. He has a steady gait and station. Speech is within normal limits for rate, tone and volume. Language and fund of knowledge are average. Focus and concentration are intact. Mood is dysphoric. Affect is restricted and consistent with stated mood. Thought process linear. No loosening of associations. No evident delusional material. Endorses audiovisual hallucinations as detailed above, but does not appear internally stimulated. Endorses suicidal ideation with plan to get drunk and lay on the railroad tracks. No reported urge to hurt himself on the inpatient unit. No homicidal ideation. Insight and judgment are poor. ASSESSMENT/PLAN This is a 61-year-old male with psychiatric history as detailed above who presents under a [place] ACT by law enforcement. On my examination today, the patient reports ongoing suicidal ideation with plan as delineated above. I do suspect that there is a component of malingering with secondary gain of fpc as the patient is presently homeless. He also has comorbid substance use issues and may be seeking for, e.g. benzodiazepines. In any event, given the patient's reported history of suicide attempts, his substance use issues, his dysphoria and ongoing suicidal ideation, the patient represents a high risk for ongoing self-harm. The patient requires psychiatric admission at this time for safety, observation and stabilization. Admit inpatient. Involuntary status. I have completed a first opinion, consult for second opinion. The patient retains capacity to consent for medications. I will continue his Zoloft 100 mg daily for mood. I will check a EKG for QTc prior to initiating any antipsychotic, although we can certainly consider resuming and perhaps titrating his Risperdal. The patient has been placed on a CIWA scale with Ativan for the management of any withdrawal, thiamine and folate. Seizure and fall precautions. I will resume the patient's general medical medications and consult the hospitalist for further management. I will check an updated B12 and TSH along with the routine BMP, lipid panel and hemoglobin A1c. Vitals every shift. Counselor to see. Disposition planning. Estimated length of stay: 3-5 days. Alex NATARAJAN /8:03 AM /8:19 AM IVORY
[2017-03-18] MEDS: GABAPENTIN 400 MG CAP PO SCH ×3 (09:00→17:03)
[2017-03-18] MEDS: BUDESONIDE-FORMOTEROL 80/4.5 MCG INHALER INH SCH ×2 (09:00→20:53)
[2017-03-18] MEDS: THIAMINE HCL 100 MG TAB PO SCH (09:00)
[2017-03-18] MEDS: CARVEDILOL 3.125 MG TAB PO SCH ×2 (09:00→20:50)
[2017-03-18] MEDS: levETIRAcetam 500 MG TAB PO SCH ×2 (09:00→20:50)
[2017-03-18] MEDS: PANTOPRAZOLE SOD 40 MG DELAYED RELEASE TAB PO SCH (09:00)
[2017-03-18] MEDS: SERTRALINE HCL 100 MG TAB PO SCH (09:00)
[2017-03-18] MEDS: FOLIC ACID 1 MG TAB PO SCH (09:00)
--- NOTE | 2017-03-18 12:28 | PD.CONS ---
[facility] Request[facility] By Reason for Consult medical management Primary Care Physician No Primary Care Physician Diagnoses: History of Present Illness patient is a 61 y/o male with history of COPD, bipolar disorder, hypertension was admitted to the psych unit because of suicidal ideation. at the time of my evaluation he was resting comfortably with no distress. he denies any chest pain , sob, nausea, dizziness. patient was seen with the RN at the bedside. Review of Systems Constitutional: DENIES: Fever, Weight loss, Chills, Night Sweats Eyes: DENIES: Blurred vision, Diplopia, Vision loss, Double Vision Ears, nose, mouth, throat: DENIES: Tinnitus, Vertigo, Throat pain, Epistaxis Respiratory: DENIES: Apneas, Cough, Snoring, Wheezing, Hemoptysis, Sputum production, Shortness of breath Cardiovascular: DENIES: Chest pain, Palpitations, Syncope, Dyspnea on Exertion , PND, Lower Extremity Edema, Orthopnea, Claudication Gastrointestinal: DENIES: Abdominal pain, Black stools, Bloody stools, Constipation, Diarrhea, Nausea, Vomiting, Difficulty Swallowing, Anorexia Genitourinary: DENIES: Urinary frequency, Urgency, Hematuria, Dysuria Musculoskeletal: DENIES: Joint pain, Muscle aches, Stiffness, Joint Swelling Integumentary: DENIES: Rash Neurologic: DENIES: Abnormal gait, Headache, Localized weakness, Paresthesias, Seizures, Speech Problems, Tremor, Poor Balance Psychiatric: COMPLAINS OF: Suicidal Ideation, DENIES: Anxiety, Confusion, Mood changes, Depression, Hallucinations, Agitation, Homicidal Ideation, Delusions Past Family Social History Allergies: Coded Allergies: carbamazepine (Unverified Allergy, Severe, APLASTIC ANEMIA, 03/17/17) dantrolene (Unverified Allergy, Severe, LIVER DISEASE, 03/17/17) diatrizoate meglumine (Unverified Allergy, Severe, ANAPHYLACTIC SHOCK, 03/17/17) gadobenic acid (Unverified Allergy, Severe, ANAPHYLACTIC SHOCK, 03/17/17) gadodiamide (Unverified Allergy, Severe, ANAPHYLACTIC SHOCK, 03/17/17) gadoteridol (Unverified Allergy, Severe, ANAPHYLACTIC SHOCK, 03/17/17) iodine (Unverified Allergy, Severe, anaphylaxis, 03/17/17) iodixanol (Unverified Allergy, Severe, ANAPHYLACTIC SHOCK, 03/17/17) iohexol (Unverified Allergy, Severe, ANAPHYLACTIC SHOCK, 03/17/17) potassium iodide (Unverified Allergy, Severe, anaphylaxis, 03/17/17) povidone-iodine (Unverified Allergy, Severe, anaphylaxis, 03/17/17) sodium iodide (Unverified Allergy, Severe, anaphylaxis, 03/17/17) sodium iodide (Unverified Allergy, Severe, anaphylaxis, 03/17/17) triazolam (Unverified Allergy, Severe, CRAZY, 03/17/17) shellfish derived (Unverified Allergy, Unknown, 03/17/17) Past Medical History bipolar disorder hypertension COPD dyslipidemia Past Surgical History surgery on the left upper extremity. Reported Medications Diclofenac Sodium DR (Diclofenac Sodium) 75 Mg Tabdr 75 Mg PO BID PRN Keflex (Cephalexin) 500 Mg Capsule 500 Mg PO Q8H 10 Days Bactrim DS (Sulfamethoxazole-Trimethoprim) 800-160 Mg Tab 1 Tab PO BID 10 Days Omeprazole 40 Mg Cap 40 Mg PO DAILY Neurontin (Gabapentin) 400 Mg Cap 400 Mg PO TID Klonopin (Clonazepam) 0.5 Mg Tab 0.5 Mg PO Q12HR Ventolin Hfa 18 GM Inh (Albuterol Sulfate) 90 Mcg/Act Aer 2 Puff INH Q2HR PRN Symbicort Inh (Budesonide/Formoterol Fumarate) 80-4.5 Mcg/Act Aero 1 Puff INH Q12HR Trazodone (Trazodone HCl) 50 Mg Tab 50 Mg PO HS PRN Keppra (Levetiracetam) 500 Mg Tab 500 Mg PO BID Coreg (Carvedilol) 3.125 Mg Tab 3.125 Mg PO BID Atorvastatin (Atorvastatin Calcium) 10 Mg Tab 10 Mg PO HS Reported Zoloft (Sertraline HCl) 100 Mg Tab 100 Mg PO BID [place] (Hydrocodone-Acetaminophen) 7.5-325 mg Tab 1 Tab PO Q4H PRN Flexeril (Cyclobenzaprine HCl) 10 Mg Tab 10 Mg PO TID PRN Active Ordered Medications Current Medications Hydroxyzine HCl (Atarax) 50 mg Q6H PRN PO ANXIETY; Start 03/17/17 at 23:30 Diphenhydramine HCl (Benadryl) 50 mg Q6H PRN PO MILD ANXIETY, EPS; Start at 23:30 Diphenhydramine HCl (Benadryl Inj) 50 mg Q6H PRN IM MILD ANXIETY, EPS; Start 03/17/17 at 23:30 Acetaminophen (Tylenol) 650 mg Q4H PRN PO Pain 1-5 or Temp >101F; Start at 23:30 Magnesium Hydroxide (Milk Of Magnesia Liq) 30 ml DAILY PRN PO CONSTIPATION; Start 03/17/17 at 23:30 Al Hydrox/Mg Hydrox/Simethicone (Mag-Al Plus Susp Liq) 30 ml Q6H PRN PO DYSPEPSIA; Start 03/17/17 at 23:30 Lorazepam (Ativan) 1 mg Q4H PRN PO CIWA 8-10; Start 03/17/17 at 23:30 Lorazepam (Ativan Inj) 1 mg Q4H PRN IV PUSH CIWA 8-10; Start 03/17/17 at 23:30 Lorazepam (Ativan) 2 mg Q2H PRN PO CIWA 11-14; Start 03/17/17 at 23:30 Lorazepam (Ativan Inj) 2 mg Q2H PRN IV PUSH CIWA 11-14; Start 03/17/17 at 23:30 Lorazepam (Ativan Inj) 2 mg Q1H PRN IV PUSH CIWA 15-20; Start 03/17/17 at 23:30 Lorazepam (Ativan Inj) 2 mg Q15M PRN IV PUSH CIWA > 20; Start 03/17/17 at 23:30 Flumazenil (Romazicon Inj) 0.2 mg Q1M PRN IV PUSH SEE LABEL COMMENTS; Start at 23:30 Thiamine HCl (Vitamin B1) 100 mg DAILY PO Last administered on 03/18/17 09:00 ; Start 03/18/17 at 09:00 Folic Acid (Folate) 1 mg DAILY PO Last administered on 03/18/17 09:00; Start 03/18/17 at 09:00 Albuterol Sulfate (Proair Hfa Inh) 2 puff Q2HR PRN INH SHORTNESS OF BREATH; Start 03/18/17 at 08:00 Atorvastatin Calcium (Lipitor) 10 mg HS PO ; Start 03/18/17 at 21:00 Budesonide/ Formoterol Fumarate (Symbicort 80-4.5 Mcg Inh) 1 puff Q12HR INH ; Start 03/18/17 at 09:00 Carvedilol (Coreg) 3.125 mg BID PO Last administered on 03/18/17 09:00; Start 03/18/17 at 09:00 Cyclobenzaprine HCl (Flexeril) 10 mg TID PRN PO MUSCLE SPASM; Start 03/18/17 at 08:00 Gabapentin (Neurontin) 400 mg TID PO Last administered on 03/18/17 09:00; Start 03/18/17 at 09:00 Levetriacetam (Keppra) 500 mg BID PO Last administered on 03/18/17 09:00; Start 03/18/17 at 09:00 Pantoprazole Sodium (Protonix) 40 mg DAILY PO Last administered on 03/18/17 09 :00; Start 03/18/17 at 09:00 Sertraline HCl (Zoloft) 100 mg DAILY PO Last administered on 03/18/17 09:00; Start 03/18/17 at 09:00 Social History smokes less than a pack a day and drinks two beers daily. Physical Exam Vital Signs Vital Signs Date Time Temp Pulse Resp B/P (MAP) Pulse Ox O2 Delivery O2 Flow Rate FiO2 03/18/17 05:59 98.5 69 16 151/83 (105) 97 03/18/17 00:08 03/17/17 22:20 03/17/17 20:32 98.6 65 18 136/94 (108) 99 Room Air 03/17/17 16:10 98.4 68 16 136/86 (103) 96 Physical Exam GENERAL: This is a well-nourished, well-developed patient, in no apparent distress. SKIN: No rashes, ecchymoses or lesions. Cool and dry. HEAD: Atraumatic. Normocephalic. No temporal or scalp tenderness. EYES: Pupils equal round and reactive. Extraocular motions intact. No scleral icterus. No injection or drainage. ENT: Nose without bleeding, purulent drainage or septal hematoma. Throat without erythema, tonsillar hypertrophy or exudate. Uvula midline. Airway patent. NECK: Trachea midline. No JVD or lymphadenopathy. Supple, nontender, no meningeal signs. CARDIOVASCULAR: Regular rate and rhythm without murmurs, gallops, or rubs. RESPIRATORY: Clear to auscultation. Breath sounds equal bilaterally. No wheezes , rales, or rhonchi. GASTROINTESTINAL: Abdomen soft, non-tender, nondistended. No hepato-splenomegaly , or palpable masses. No guarding. MUSCULOSKELETAL: left shoulder in sling NEUROLOGICAL: Awake and alert. Cranial nerves II through XII intact. Motor and sensory grossly within normal limits. Five out of 5 muscle strength in all muscle groups. Normal speech. Laboratory Laboratory Tests Test 03/17/17 17:00 03/17/17 17:23 03/17/17 17:27 Urine Opiates Screen NEG Urine Barbiturates Screen NEG Urine Amphetamines Screen NEG Urine Benzodiazepines Screen NEG Urine Cocaine Screen NEG Urine Cannabinoids Screen POS White Blood Count 8.3 Red Blood Count 3.94 Hemoglobin 14.7 Hematocrit 42.1 Mean Corpuscular Volume 107.0 Mean Corpuscular Hemoglobin 37.5 Mean Corpuscular Hemoglobin Concent 35.0 Red Cell Distribution Width 12.9 Platelet Count 146 Mean Platelet Volume 8.1 Neutrophils (%) (Auto) 55.9 Lymphocytes (%) (Auto) 31.2 Monocytes (%) (Auto) 10.0 Eosinophils (%) (Auto) 2.1 Basophils (%) (Auto) 0.8 Neutrophils # (Auto) 4.6 Lymphocytes # (Auto) 2.6 Monocytes # (Auto) 0.8 Eosinophils # (Auto) 0.2 Basophils # (Auto) 0.1 CBC Comment DIFF FINAL Differential Comment Blood Urea Nitrogen 10 Creatinine 0.85 Random Glucose 86 Total Protein 6.8 Albumin 3.6 Calcium Level 8.4 Alkaline Phosphatase 67 Aspartate Amino Transf (AST/SGOT) 30 Alanine Aminotransferase (ALT/SGPT) 32 Total Bilirubin 0.4 Sodium Level 137 Potassium Level 3.5 Chloride Level 105 Carbon Dioxide Level 24.8 Anion Gap 7 Estimat Glomerular Filtration Rate 91 Ethyl Alcohol Level 165 Result Diagram: 03/17/17 1723 03/17/17 1723 Assessment and Plan Assessment and Plan A/P - suicidal ideation with history of bipolar disorder management per psych. -COPD with no exacerbation; continue Symbicort- albuterol as needed. -hypertension; BP stable- continue coreg. -dyslipidemia; continue statin -alcohol abuse; continue thiamine and folic acid- advised to stop drinking. thank you for the consult. [facility] will sign off- please call if needed. Discussed Condition With patient and RN. Bam Sibley MD Mar 18, 2017 12:28
[2017-03-18 13:03] LABS: ANION GAP 6 MEQ/L (5-15); BLOOD UREA NITROGEN 12 MG/DL (7-18); CHLORIDE 104 MEQ/L (98-107); GLOMERULAR FILTRATION RATE 64 ML/MIN (>89); POTASSIUM 4.3 MEQ/L (3.5-5.1); SODIUM (NA) 136 MEQ/L (136-145)
[2017-03-18 13:06] LABS: HDL CHOLESTEROL 126.5 MG/DL (40.0-60.0); LDL CHOLESTEROL 44 MG/DL (0-99)
--- NOTE | 2017-03-18 13:51 | HHI.PYPN ---
Subjective Remarks The patient is a 62 years old man, homeless, single, unemployed, supported by [facility], with psychiatric history of bipolar disorder, PTSD, alcohol and cannabis use disorder, about 4 psychiatric hospitalizations, the last hospitalization was here in [place] in May under the care of Dr. Cisneros , documentation reviewed, he is not receiving any outpatient care or taking any psychotropics at this moment, he has medical history hypertension, seizures, TBI , who was hospitalized after being brought on the Harper act due to suicidal ideation. Patient was consulted to me for second opinion. On psychiatric evaluation patient was found in his room, he was sleeping, but easily arousable. He was calm, cooperative. He explains that the reason he is here is because yesterday after an argument with a staff member of a [employer] he had a nervous breakdown he wanted to kill himself. As per additional documentation, this was a very similar reason his last hospitalizations. He reported that he lost to control himself he was ready to walk in front of a car overdosing by drinking alcohol. She reports that in the last days he has been experiencing short temper and poor tolerance to frustration. Today he feels much better, denies suicidal and homicidal ideation, denies visual and auditory hallucinations. He is oriented 3. Review of Systems Constitutional: DENIES: Diaphoretic episodes, Fatigue, Fever, Weight gain, Weight loss, Chills, Dizziness, Change in appetite, Night Sweats Endocrine: DENIES: Heat/cold intolerance, Polydipsia, Polyuria, Polyphagia Eyes: DENIES: Blurred vision, Diplopia, Eye inflammation, Eye pain, Vision loss , Photosensitivity, Double Vision Ears, nose, mouth, throat: DENIES: Tinnitus, Hearing loss, Vertigo, Nasal discharge, Oral lesions, Throat pain, Hoarseness, Ear Pain, Running Nose, Epistaxis, Sinus Pain, Toothache, Odynophagia Respiratory: DENIES: Apneas, Cough, Snoring, Wheezing, Hemoptysis, Sputum production, Shortness of breath Cardiovascular: DENIES: Chest pain, Palpitations, Syncope, Dyspnea on Exertion , PND, Lower Extremity Edema, Orthopnea, Claudication Gastrointestinal: DENIES: Abdominal pain, Black stools, Bloody stools, Constipation, Diarrhea, Nausea, Vomiting, Difficulty Swallowing, Anorexia Genitourinary: DENIES: Sexual dysfunction, Urinary frequency, Urinary incontinence, Urgency, Hematuria, Dysuria, Nocturia, Penile Discharge, Testicular Pain, Testicular Swelling Musculoskeletal: DENIES: Joint pain, Muscle aches, Stiffness, Joint Swelling, Back pain, Neck pain Integumentary: DENIES: Abnormal pigmentation, Nail changes, Pruritus, Rash Hematologic/lymphatic: DENIES: Bruising, Lymphadenopathy Immunologic/allergic: DENIES: Eczema, Urticaria Neurologic: DENIES: Abnormal gait, Headache, Localized weakness, Paresthesias, Seizures, Speech Problems, Tremor, Poor Balance Psychiatric: COMPLAINS OF: Mood changes, Depression, DENIES: Anxiety, Confusion , Hallucinations, Agitation, Suicidal Ideation, Homicidal Ideation, Delusions Mental Status Examination Appearance: Appropriate Consciousness: Alert Orientation: x4 Motor Activity: Normal gait Speech: Unremarkable Language: Adequate Fund of Knowledge: Adequate Attention and Concentration: Adequate Memory: Unremarkable Mood: Sad Affect: Irritable Thought Process & Associations: Intact Thought Content: Appropriate Hallucination Type: None Delusion Type: None Suicidal Ideation: Yes Suicidal Plan: No Suicidal Intention: No Homicidal Ideation: No Homicidal Plan: No Homicidal Intention: No Insight: Poor Judgment: Poor Results Labs Test 03/17/17 17:00 03/17/17 17:23 03/17/17 17:27 03/18/17 12:08 Urine Opiates Screen NEG Urine Barbiturates Screen NEG Urine Amphetamines Screen NEG Urine Benzodiazepines Screen NEG Urine Cocaine Screen NEG Urine Cannabinoids Screen POS White Blood Count 8.3 TH/MM3 Red Blood Count 3.94 MIL/MM3 Hemoglobin 14.7 GM/DL Hematocrit 42.1 % Mean Corpuscular Volume 107.0 FL Mean Corpuscular Hemoglobin 37.5 PG Mean Corpuscular Hemoglobin Concent 35.0 % Red Cell Distribution Width 12.9 % Platelet Count 146 TH/MM3 Mean Platelet Volume 8.1 FL Neutrophils (%) (Auto) 55.9 % Lymphocytes (%) (Auto) 31.2 % Monocytes (%) (Auto) 10.0 % Eosinophils (%) (Auto) 2.1 % Basophils (%) (Auto) 0.8 % Neutrophils # (Auto) 4.6 TH/MM3 Lymphocytes # (Auto) 2.6 TH/MM3 Monocytes # (Auto) 0.8 TH/MM3 Eosinophils # (Auto) 0.2 TH/MM3 Basophils # (Auto) 0.1 TH/MM3 CBC Comment DIFF FINAL Differential Comment Blood Urea Nitrogen 10 MG/DL 12 MG/DL Creatinine 0.85 MG/DL 1.15 MG/DL Random Glucose 86 MG/DL 144 MG/DL Total Protein 6.8 GM/DL Albumin 3.6 GM/DL Calcium Level 8.4 MG/DL 8.8 MG/DL Alkaline Phosphatase 67 U/L Aspartate Amino Transf (AST/SGOT) 30 U/L Alanine Aminotransferase (ALT/SGPT) 32 U/L Total Bilirubin 0.4 MG/DL Sodium Level 137 MEQ/L 136 MEQ/L Potassium Level 3.5 MEQ/L 4.3 MEQ/L Chloride Level 105 MEQ/L 104 MEQ/L Carbon Dioxide Level 24.8 MEQ/L 26.0 MEQ/L Anion Gap 7 MEQ/L 6 MEQ/L Estimat Glomerular Filtration Rate 91 ML/MIN 64 ML/MIN Ethyl Alcohol Level 165 MG/DL Triglycerides Level 53 MG/DL Cholesterol Level 181 MG/DL LDL Cholesterol 44 MG/DL HDL Cholesterol 126.5 MG/DL Cholesterol/HDL Ratio 1.43 RATIO Vitamin B12 Level 318 PG/ML Thyroid Stimulating Hormone 3rd Gen 1.350 uIU/ML Vitals/IOs Vital Signs Date Time Temp Pulse Resp B/P (MAP) Pulse Ox O2 Delivery O2 Flow Rate FiO2 03/18/17 05:59 98.5 69 16 151/83 (105) 97 03/17/17 20:32 Room Air Assessment & Plan Problem List: (1) Adjustment disorder with mixed disturbance of emotions and conduct ICD Codes: F43.25 - Adjustment disorder with mixed disturbance of emotions and conduct Status: Acute Assessment & Plan: I Have seen and examined this patient, reviewed the documentation, I completely agree and concur with Dr. Cisneros assessment and plan. Consult appreciated. Assessment & Plan Estimated LOS: days Justification for Cont. Inpt. Continue psychiatric admission as per Dr. Cisneros. Francisco Vanegas MD Mar 18, 2017 13:51
--- NOTE | 2017-03-18 15:20 | EKG ---
Date Performed: 03/18/2017 Time Performed: 13:08:35 PTAGE: 61 years EKG: Baseline artifact present Sinus rhythm Nonspecific T wave changes ABNORMAL ECG No significant change from prior electrocardiogram. PREVIOUS TRACING : 08/08/2016 21.19 DOCTOR: Juan Claros Interpretating Date/Time 03/18/2017 15:18:57
[2017-03-18 15:48] LABS: HEMOGLOBIN A1a 1.3 %; HEMOGLOBIN A1b 0.7 %; HEMOGLOBIN Ao 85.2 %; HEMOGLOBIN F 1.5 %; HEMOGLOBIN LA1C 2.3 %; HEMOGLOBIN P3 3.4 %
[2017-03-18 18:11] VITALS: BP 142/91; PULSE 57; RESP 17; TEMP 98.7; O2SAT 96
[2017-03-18] MEDS: ATORVASTATIN 10 MG TAB PO SCH (20:49)
[2017-03-18] MEDS: risperiDONE 1 MG TAB PO SCH (20:49)
[2017-03-18] MEDS: ALBUTEROL SULFATE 90 MCG/ACT HFA 8 GM INHALER INH PRN (22:21)
[2017-03-18] MEDS: hydrOXYzine HCL 50 MG TAB PO PRN (22:27)
[2017-03-19 06:19] VITALS: BP 123/66; PULSE 61; RESP 18; TEMP 98.3; O2SAT 96
[2017-03-19] MEDS: levETIRAcetam 500 MG TAB PO SCH ×2 (10:28→20:52)
[2017-03-19] MEDS: THIAMINE HCL 100 MG TAB PO SCH (10:28)
[2017-03-19] MEDS: risperiDONE 1 MG TAB PO SCH ×2 (10:28→20:52)
[2017-03-19] MEDS: GABAPENTIN 400 MG CAP PO SCH ×3 (10:28→18:19)
[2017-03-19] MEDS: CARVEDILOL 3.125 MG TAB PO SCH ×3 (10:28→20:57)
[2017-03-19] MEDS: PANTOPRAZOLE SOD 40 MG DELAYED RELEASE TAB PO SCH (10:28)
[2017-03-19] MEDS: FOLIC ACID 1 MG TAB PO SCH (10:28)
[2017-03-19] MEDS: SERTRALINE HCL 100 MG TAB PO SCH ×2 (10:31→20:52)
[2017-03-19] MEDS: ALBUTEROL SULFATE 90 MCG/ACT HFA 8 GM INHALER INH PRN (10:36)
--- NOTE | 2017-03-19 11:08 | HHI.PYPN ---
Subjective Remarks Patient seen and examined with nurse and counselor. Chart reviewed. Case discussed in treatment team. Nurse reports that the patient has been no behavioral problem but is poorly attendant to personal hygiene, and she also notes that the patient's arm sling is quite worn and malodorous. Patient says that he is feeling "a little bit better." He says however that he remains "super depressed" and says "I wished last night I could go to sleep and not wake up." He denies any specific urge to hurt himself on the inpatient psychiatric unit. He denies audiovisual hallucinations. Denies homicidal ideation. Overall presentation remains fairly malingered in context. Denies side effects from medications. Says that he normally takes Zoloft 100 mg twice daily, not once daily, and is also requesting trazodone as needed for sleep. No physical complaints. Review of Systems Except as stated in HPI: all other systems reviewed are Neg Mental Status Examination Appearance: Appropriate Consciousness: Alert Orientation: x4 Motor Activity: Other (no motor abnormalities noted. No signs of withdrawal noted.) Speech: Unremarkable Language: Adequate Fund of Knowledge: Adequate Attention and Concentration: Adequate Memory: Unremarkable Mood: Other (reports depressed) Affect: Appropriate (passive wish. No reported urge to hurt self on inpatient unit.) Thought Process & Associations: Intact Thought Content: Appropriate Hallucination Type: None Delusion Type: None Suicidal Ideation: Yes Suicidal Plan: No Suicidal Intention: No Homicidal Ideation: No Homicidal Plan: No Homicidal Intention: No Insight: Poor Judgment: Poor Results Labs Test 03/18/17 12:08 Blood Urea Nitrogen 12 MG/DL Creatinine 1.15 MG/DL Random Glucose 144 MG/DL Calcium Level 8.8 MG/DL Sodium Level 136 MEQ/L Potassium Level 4.3 MEQ/L Chloride Level 104 MEQ/L Carbon Dioxide Level 26.0 MEQ/L Anion Gap 6 MEQ/L Estimat Glomerular Filtration Rate 64 ML/MIN Hemoglobin A1c 5.2 % Triglycerides Level 53 MG/DL Cholesterol Level 181 MG/DL LDL Cholesterol 44 MG/DL HDL Cholesterol 126.5 MG/DL Cholesterol/HDL Ratio 1.43 RATIO Vitamin B12 Level 318 PG/ML Thyroid Stimulating Hormone 3rd Gen 1.350 uIU/ML Labs reviewed. Decreased GFR noted. Hemoglobin A1c within normal limits. TSH and vitamin B12 level both within normal limits. Vitals/IOs Vital Signs Date Time Temp Pulse Resp B/P (MAP) Pulse Ox O2 Delivery O2 Flow Rate FiO2 03/19/17 06:19 98.3 61 18 123/66 (85) 96 03/17/17 20:32 Room Air Assessment & Plan Problem List: (1) Adjustment disorder with mixed disturbance of emotions and conduct ICD Codes: F43.25 - Adjustment disorder with mixed disturbance of emotions and conduct Status: Acute (2) Polysubstance dependence ICD Codes: F19.20 - Other psychoactive substance dependence, uncomplicated Assessment & Plan Titrate Zoloft to 100 mg twice daily. Add trazodone 50 mg at bedtime as needed for sleep. Continue Risperdal as ordered. I will ask the orthotic practitioner to provide the patient with a new sleeping and have asked the nursing staff to assist the patient in maintaining hygiene. Hospitalist input noted and appreciated. Continue to monitor on the inpatient unit. Continue other medications and care as ordered. Justification for Cont. Inpt. Med changes. Monitoring for impairments in safety, none noted. Discharge Planning Case discussed with counselor. Anticipate discharge after the weekend. Request HC Surrog/Guard Advoc?: No Alex Cisneros MD Mar 19, 2017 11:08
[2017-03-19] MEDS: CYCLOBENZAPRINE HCL 10 MG TAB PO PRN (11:17)
[2017-03-19] MEDS: ACETAMINOPHEN 325 MG TAB PO PRN (11:17)
[2017-03-19] MEDS: BUDESONIDE-FORMOTEROL 80/4.5 MCG INHALER INH SCH ×2 (11:19→20:53)
--- NOTE | 2017-03-19 12:53 | PD.TTN ---
Patient Problems 1. Discharge planning 2. Medication compliance 3. Knowledge deficit 4. Lack of coping skills Progress Toward Goals Provider Present: Dr. Phil Cisneros Provider Input: Pt continues to express suicidal ideation and medication regiment will be adjusted. Psychiatric Counselors Present: RICKY Prasad Psych Therapist Input: Pt continues to appear depressed, suicidal, appropriate, cooperative, organized and oriented. He presents with fair insight into condition and need for care. Pt presents with limited coping skills at this time as evidenced by ongoing issues coping with his distress. Pt has been compliant with medication regiment and treatment. Group Spec/RT/OT/MELTON Present: GERONIMO Fairbanks Group Spec/RT/OT/MELTON Input: Pt has attended one group since admission yesterday. He appears motivated to obtain help. Discharge Plan [facility] Counselor will assist with possible placement in [place] though he may be a homeless discharge if placement cannot be obtained. He will be linked to outpatient psychiatric follow up services regardless of placement. Dipak Felipe AMARJIT Mar 19, 2017 12:53
[2017-03-19 18:00] VITALS: BP 100/53; PULSE 58; RESP 18; TEMP 97.4; O2SAT 99
[2017-03-19] MEDS: hydrOXYzine HCL 50 MG TAB PO PRN (18:20)
[2017-03-19] MEDS: ATORVASTATIN 10 MG TAB PO SCH (20:53)
[2017-03-19] MEDS: traZODone HCL 50 MG TAB PO PRN (20:58)
[2017-03-20] MEDS: CYCLOBENZAPRINE HCL 10 MG TAB PO PRN ×3 (05:43→23:19)
[2017-03-20] MEDS: ALBUTEROL SULFATE 90 MCG/ACT HFA 8 GM INHALER INH PRN (05:43)
[2017-03-20 06:03] VITALS: BP 131/73; PULSE 67; RESP 17; TEMP 98.7; O2SAT 100
[2017-03-20] MEDS: GABAPENTIN 400 MG CAP PO SCH ×3 (07:10→18:19)
[2017-03-20] MEDS: PANTOPRAZOLE SOD 40 MG DELAYED RELEASE TAB PO SCH (09:04)
[2017-03-20] MEDS: levETIRAcetam 500 MG TAB PO SCH ×2 (09:04→21:10)
[2017-03-20] MEDS: CARVEDILOL 3.125 MG TAB PO SCH ×2 (09:04→21:11)
[2017-03-20] MEDS: FOLIC ACID 1 MG TAB PO SCH (09:04)
[2017-03-20] MEDS: THIAMINE HCL 100 MG TAB PO SCH (09:04)
[2017-03-20] MEDS: SERTRALINE HCL 100 MG TAB PO SCH ×2 (09:04→21:11)
[2017-03-20] MEDS: risperiDONE 1 MG TAB PO SCH ×2 (09:04→21:11)
[2017-03-20] MEDS: BUDESONIDE-FORMOTEROL 80/4.5 MCG INHALER INH SCH ×2 (09:09→21:11)
[2017-03-20] MEDS: ACETAMINOPHEN 325 MG TAB PO PRN (15:58)
--- NOTE | 2017-03-20 17:56 | HHI.PYPN ---
Subjective Remarks Patient was seen and case discussed with nursing. Patient is pleasant and cooperative with exam. Patient continues to feel depressed and tells me very specific plan of killing himself when he leaves. He says that he is discharged he plans to get drunk and lay down the railroad track. He then relates all his other suicide attempts. However he does this all in a cheerful manner Mental Status Examination Appearance: Appropriate Consciousness: Alert Orientation: x4 Motor Activity: Other (no motor abnormalities noted. No signs of withdrawal noted.) Speech: Unremarkable Language: Adequate Fund of Knowledge: Adequate Attention and Concentration: Adequate Memory: Unremarkable Mood: Sad Affect: Appropriate (passive wish. No reported urge to hurt self on inpatient unit.), Other (noncongruent, cheerful) Thought Process & Associations: Intact Thought Content: Appropriate Hallucination Type: None Delusion Type: None Suicidal Ideation: Yes Suicidal Plan: No Suicidal Intention: No Homicidal Ideation: No Homicidal Plan: No Homicidal Intention: No Insight: Poor Judgment: Poor Results Vitals/IOs Vital Signs Date Time Temp Pulse Resp B/P (MAP) Pulse Ox O2 Delivery O2 Flow Rate FiO2 03/20/17 06:03 98.7 67 17 131/73 (92) 100 03/17/17 20:32 Room Air Assessment & Plan Problem List: (1) Adjustment disorder with mixed disturbance of emotions and conduct ICD Codes: F43.25 - Adjustment disorder with mixed disturbance of emotions and conduct Status: Acute (2) Polysubstance dependence ICD Codes: F19.20 - Other psychoactive substance dependence, uncomplicated Assessment & Plan Continue current treatment plan Justification for Cont. Inpt. Patient will decompensate in a less restrictive setting Request HC Surrog/Guard Advoc?: No Froy Fang DO Mar 20, 2017 17:56
[2017-03-20] MEDS: ATORVASTATIN 10 MG TAB PO SCH (21:10)
[2017-03-20] MEDS: traZODone HCL 50 MG TAB PO PRN (21:11)
[2017-03-20] MEDS: diphenhydrAMINE HCL 50 MG CAP PO PRN (23:19)
[2017-03-21 06:35] VITALS: BP 123/80; PULSE 59; RESP 16; TEMP 98.2; O2SAT 94
[2017-03-21] MEDS: ALBUTEROL SULFATE 90 MCG/ACT HFA 8 GM INHALER INH PRN ×2 (06:45→16:08)
[2017-03-21] MEDS: THIAMINE HCL 100 MG TAB PO SCH (08:21)
[2017-03-21] MEDS: CARVEDILOL 3.125 MG TAB PO SCH ×2 (08:22→20:49)
[2017-03-21] MEDS: levETIRAcetam 500 MG TAB PO SCH ×2 (08:22→20:48)
[2017-03-21] MEDS: FOLIC ACID 1 MG TAB PO SCH (08:22)
[2017-03-21] MEDS: GABAPENTIN 400 MG CAP PO SCH ×3 (08:22→17:27)
[2017-03-21] MEDS: PANTOPRAZOLE SOD 40 MG DELAYED RELEASE TAB PO SCH (08:22)
[2017-03-21] MEDS: ACETAMINOPHEN 325 MG TAB PO PRN (08:22)
[2017-03-21] MEDS: CYCLOBENZAPRINE HCL 10 MG TAB PO PRN ×2 (08:22→20:49)
[2017-03-21] MEDS: risperiDONE 1 MG TAB PO SCH ×2 (08:22→20:49)
[2017-03-21] MEDS: SERTRALINE HCL 100 MG TAB PO SCH ×2 (08:22→20:49)
[2017-03-21] MEDS: BUDESONIDE-FORMOTEROL 80/4.5 MCG INHALER INH SCH ×2 (08:23→20:48)
--- NOTE | 2017-03-21 14:40 | HHI.PYPN ---
Subjective Remarks Patient was seen and case discussed with nursing. Patient remains vague and superficial an incongruent affect when he talks about his suicidal ideation. Describes various plans. Today's perseverative on his feet which do appear dry and cracked. Mental Status Examination Appearance: Appropriate Consciousness: Alert Orientation: x4 Motor Activity: Other (no motor abnormalities noted. No signs of withdrawal noted.) Speech: Unremarkable Language: Adequate Fund of Knowledge: Adequate Attention and Concentration: Adequate Memory: Unremarkable Mood: Sad Affect: Appropriate (passive wish. No reported urge to hurt self on inpatient unit.), Other (noncongruent, cheerful) Thought Process & Associations: Intact Thought Content: Appropriate Hallucination Type: None Delusion Type: None Suicidal Ideation: Yes Suicidal Plan: Yes (to lay in the train tracks) Suicidal Intention: No Homicidal Ideation: No Homicidal Plan: No Homicidal Intention: No Insight: Poor Judgment: Poor Results Vitals/IOs Vital Signs Date Time Temp Pulse Resp B/P (MAP) Pulse Ox O2 Delivery O2 Flow Rate FiO2 03/21/17 06:35 98.2 59 16 123/80 (94) 94 03/17/17 20:32 Room Air Assessment & Plan Problem List: (1) Adjustment disorder with mixed disturbance of emotions and conduct ICD Codes: F43.25 - Adjustment disorder with mixed disturbance of emotions and conduct Status: Acute (2) Polysubstance dependence ICD Codes: F19.20 - Other psychoactive substance dependence, uncomplicated Assessment & Plan Podiatry consult Justification for Cont. Inpt. Patient will decompensate in a less restrictive setting Request HC Surrog/Guard Advoc?: No Froy Fang DO Mar 21, 2017 14:40
[2017-03-21 18:10] VITALS: BP 151/100; PULSE 56; RESP 17; TEMP 98; O2SAT 99
[2017-03-21] MEDS: traZODone HCL 50 MG TAB PO PRN (20:48)
[2017-03-21] MEDS: diphenhydrAMINE HCL 50 MG CAP PO PRN (20:49)
[2017-03-21] MEDS: ATORVASTATIN 10 MG TAB PO SCH (20:52)
[2017-03-22 05:32] VITALS: BP 122/73; PULSE 63; RESP 17; TEMP 98.5; O2SAT 96
[2017-03-22] MEDS: PANTOPRAZOLE SOD 40 MG DELAYED RELEASE TAB PO SCH (08:45)
[2017-03-22] MEDS: GABAPENTIN 400 MG CAP PO SCH ×3 (08:45→18:00)
[2017-03-22] MEDS: levETIRAcetam 500 MG TAB PO SCH ×2 (08:45→20:19)
[2017-03-22] MEDS: FOLIC ACID 1 MG TAB PO SCH (08:45)
[2017-03-22] MEDS: CYCLOBENZAPRINE HCL 10 MG TAB PO PRN (08:45)
[2017-03-22] MEDS: CARVEDILOL 3.125 MG TAB PO SCH ×2 (08:45→20:18)
[2017-03-22] MEDS: SERTRALINE HCL 100 MG TAB PO SCH ×2 (08:45→20:19)
[2017-03-22] MEDS: THIAMINE HCL 100 MG TAB PO SCH (08:45)
[2017-03-22] MEDS: risperiDONE 1 MG TAB PO SCH ×2 (08:45→20:19)
[2017-03-22] MEDS: BUDESONIDE-FORMOTEROL 80/4.5 MCG INHALER INH SCH ×2 (09:00→20:17)
--- NOTE | 2017-03-22 10:34 | HHI.PYPN ---
Subjective Remarks Patient seen and examined. Chart reviewed. CIWA 0 overnight. Case discussed with nursing staff. No reported behavioral issues overnight. Case discussed with counselor, who is looking into placement. Patient remains fairly manipulative. He tells me "it's the same story of my life: I go forward 1 step and then fall back 3-4 steps. I have to laugh or I'd cry." He says "I still don't want to live like this [i.e. homeless] no more." He does not verbalize any active SI or HI, however. He tells me instead that "I'd probably try to stay alive until Wednesday" to try to get a cell phone one more time. He implies that if he is unsuccessful at that point, he would likely kill himself. He slept well overnight for the first time, he says. He denies side effects from medications and says that he now thinks he may have been off of meds 15-20 days instead of the 3-4 days he had previously thought. No physical complaints. Review of Systems Except as stated in HPI: all other systems reviewed are Neg Mental Status Examination Appearance: Appropriate Consciousness: Alert Orientation: x4 Motor Activity: Other (no motoric abnormalities noted) Speech: Unremarkable Language: Adequate Fund of Knowledge: Adequate Attention and Concentration: Adequate Memory: Unremarkable Mood: Other (dysphoric) Affect: Other (incongruent with stated mood) Thought Process & Associations: Intact Thought Content: Appropriate Hallucination Type: None Delusion Type: None Suicidal Ideation: Yes (ongoing passive wish) Suicidal Plan: No Suicidal Intention: No Homicidal Ideation: No Homicidal Plan: No Homicidal Intention: No Insight: Poor Judgment: Poor Mental Status Exam Remarks No signs of withdrawal noted. Results Labs Labs reviewed. No new labs. Vitals/IOs Vital Signs Date Time Temp Pulse Resp B/P (MAP) Pulse Ox O2 Delivery O2 Flow Rate FiO2 03/22/17 05:32 98.5 63 17 122/73 (89) 96 Assessment & Plan Problem List: (1) Adjustment disorder with mixed disturbance of emotions and conduct ICD Codes: F43.25 - Adjustment disorder with mixed disturbance of emotions and conduct Status: Acute (2) Polysubstance dependence ICD Codes: F19.20 - Other psychoactive substance dependence, uncomplicated Assessment & Plan Continue Zoloft and Risperdal as ordered. Could consider further titration of Risperdal or perhaps additional augmentation with a different agent for mood. Some degree of malingering for senior living is still suspected in patient's case. No evidence of withdrawal; discontinue CIWA. Continue to monitor on an inpatient unit. Continue other medications and care as ordered. Justification for Cont. Inpt. Monitoring for impairment in safety, none noted. Risk for decompensation in less restrictive environment. Discharge Planning Hopeful for discharge by the middle of the week. Request HC Surrog/Guard Advoc?: No Alex Cisneros MD Mar 22, 2017 10:34
[2017-03-22 16:56] VITALS: BP 134/86; PULSE 67; RESP 18; TEMP 98.5; O2SAT 96
[2017-03-22] MEDS: hydrOXYzine HCL 50 MG TAB PO PRN (20:18)
[2017-03-22] MEDS: ATORVASTATIN 10 MG TAB PO SCH (20:19)
--- NOTE | 2017-03-22 22:52 | PD.CONS ---
History of Present Illness Service Foot and Ankle Surgery/Podiatry Consult Requested By Reason for Consult Fissures to plantar aspect of foot Primary Care Physician No Primary Care Physician Diagnoses: (1) Ulcer History of Present Illness 61 year old male with fissures to the plantar aspect of his feet. Patient states he usually walks up to 10 miles a day and his feet sweat. Patient states normally his feet are not dry at all. He has noticed the dryness since being admitted to the hospital. Denies any infectious symptoms. States the bottom of his feet have been bleeding a little but he has not noticed any drainage. Review of Systems Constitutional: COMPLAINS OF: Diaphoretic episodes, Fever, Weight gain, Weight loss, Chills, Dizziness, Change in appetite, Night Sweats, DENIES: Fatigue Eyes: DENIES: Blurred vision Ears, nose, mouth, throat: DENIES: Hearing loss, Vertigo Respiratory: DENIES: Cough Cardiovascular: DENIES: Chest pain Gastrointestinal: DENIES: Abdominal pain Immunologic/allergic: COMPLAINS OF: Eczema (Dry cracked skin to plantar aspect of bilateral foot. ) Neurologic: DENIES: Abnormal gait Except as stated in HPI: all other systems reviewed are Neg Past Family Social History Allergies: Coded Allergies: carbamazepine (Unverified Allergy, Severe, APLASTIC ANEMIA, 03/17/17) dantrolene (Unverified Allergy, Severe, LIVER DISEASE, 03/17/17) diatrizoate meglumine (Unverified Allergy, Severe, ANAPHYLACTIC SHOCK, 03/17/17) gadobenic acid (Unverified Allergy, Severe, ANAPHYLACTIC SHOCK, 03/17/17) gadodiamide (Unverified Allergy, Severe, ANAPHYLACTIC SHOCK, 03/17/17) gadoteridol (Unverified Allergy, Severe, ANAPHYLACTIC SHOCK, 03/17/17) iodine (Unverified Allergy, Severe, anaphylaxis, 03/17/17) iodixanol (Unverified Allergy, Severe, ANAPHYLACTIC SHOCK, 03/17/17) iohexol (Unverified Allergy, Severe, ANAPHYLACTIC SHOCK, 03/17/17) potassium iodide (Unverified Allergy, Severe, anaphylaxis, 03/17/17) povidone-iodine (Unverified Allergy, Severe, anaphylaxis, 03/17/17) sodium iodide (Unverified Allergy, Severe, anaphylaxis, 03/17/17) sodium iodide (Unverified Allergy, Severe, anaphylaxis, 03/17/17) triazolam (Unverified Allergy, Severe, CRAZY, 03/17/17) shellfish derived (Unverified Allergy, Unknown, 03/17/17) Active Ordered Medications Current Medications Medications (Trade) Dose Ordered Sig/Arielle Route Start Time Stop Time Status Last Admin (Atarax) 50 mg Q6H PRN PO 03/17/17 23:30 03/22/17 20:18 (Benadryl) 50 mg Q6H PRN PO 03/17/17 23:30 03/21/17 20:49 (Benadryl Inj) 50 mg Q6H PRN IM 03/17/17 23:30 (Tylenol) 650 mg Q4H PRN PO 03/17/17 23:30 03/21/17 08:22 (Milk Of Magnesia Liq) 30 ml DAILY PRN PO 03/17/17 23:30 (Mag-Al Plus Susp Liq) 30 ml Q6H PRN PO 03/17/17 23:30 (Romazicon Inj) 0.2 mg Q1M PRN IV PUSH 03/17/17 23:30 (Vitamin B1) 100 mg DAILY PO 03/18/17 09:00 03/22/17 08:45 (Folate) 1 mg DAILY PO 03/18/17 09:00 03/22/17 08:45 (Proair Hfa Inh) 2 puff Q2HR PRN INH 03/18/17 08:00 03/21/17 16:08 (Lipitor) 10 mg HS PO 03/18/17 21:00 03/22/17 20:19 (Symbicort 80-4.5 Mcg Inh) 1 puff Q12HR INH 03/18/17 09:00 03/22/17 20:17 (Coreg) 3.125 mg BID PO 03/18/17 09:00 03/22/17 20:18 (Flexeril) 10 mg TID PRN PO 03/18/17 08:00 03/22/17 08:45 (Neurontin) 400 mg TID PO 03/18/17 09:00 03/22/17 18:00 (Keppra) 500 mg BID PO 03/18/17 09:00 03/22/17 20:19 (Protonix) 40 mg DAILY PO 03/18/17 09:00 03/22/17 08:45 (risperDAL) 1 mg Q12HR PO 03/18/17 21:00 03/22/17 20:19 (Zoloft) 100 mg BID PO 03/19/17 21:00 03/22/17 20:19 (Desyrel) 50 mg HS PRN PO 03/19/17 11:15 03/21/17 20:48 Physical Exam Vital Signs Vital Signs Date Time Temp Pulse Resp B/P (MAP) Pulse Ox O2 Delivery O2 Flow Rate FiO2 03/22/17 16:56 98.5 67 18 134/86 (102) 96 03/22/17 05:32 98.5 63 17 122/73 (89) 96 Physical Exam GENERAL: This is a well-nourished, well-developed patient, in no apparent distress. SKIN: Cool and dry. HEAD: Atraumatic. EYES: Pupils equal round and reactive. ENT: Airway patent. NECK: No JVD or lymphadenopathy. RESPIRATORY: No labored respirations. MUSCULOSKELETAL: Extremities without clubbing, cyanosis, or edema. No joint tenderness, effusion, or edema noted. No calf tenderness. Negative Homans sign bilaterally. NEUROLOGICAL: Awake and alert. Normal speech. Lower Extremity Physical Exam: Vasc: DP/PT 2/4 bilaterally. 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 Neuro: Gross sensation intact. No hyperalgesia noted. Derm: Xerosis noted to bilateral plantar aspect of foot. Fissures x2 right foot and X3 left foot to plantar aspect of foot superficial in nature with red granular bases. No surrounding erythema to bilateral fissures. No drainage noted to bilateral plantar aspect of foot. No clinical signs of infection noted. MSK: Decreased medial longitudinal arch. No gross osseous deformities. ROM WNL limits to joints bilateral foot. Result Diagram: 03/18/17 1208 Assessment and Plan Assessment and Plan 61 year old male with xerosis to bilateral plantar aspect of foot with fissures present Patient examined and evaluated with nurse bedside Discussed with nurse Triple antibiotic with dry sterile dressing to fissures bilateral foot Apply urea to bilateral plantar aspect of foot Vandana Moore DPM Mar 22, 2017 22:52
[2017-03-22] MEDS ORDERED: EUCERIN CREAM 120 GM JAR TOPICAL PRN (23:00)
[2017-03-22] MEDS ORDERED: EUCERIN CREAM 120 GM JAR TOPICAL ONE (23:00)
[2017-03-23] MEDS: ALBUTEROL SULFATE 90 MCG/ACT HFA 8 GM INHALER INH PRN (06:27)
[2017-03-23 06:39] VITALS: BP 132/80; PULSE 64; RESP 17; TEMP 98.3; O2SAT 98
[2017-03-23] MEDS: PANTOPRAZOLE SOD 40 MG DELAYED RELEASE TAB PO SCH (08:47)
[2017-03-23] MEDS: CARVEDILOL 3.125 MG TAB PO SCH ×2 (08:47→22:18)
[2017-03-23] MEDS: FOLIC ACID 1 MG TAB PO SCH (08:47)
[2017-03-23] MEDS: GABAPENTIN 400 MG CAP PO SCH ×3 (08:47→18:00)
[2017-03-23] MEDS: risperiDONE 1 MG TAB PO SCH ×2 (08:47→22:18)
[2017-03-23] MEDS: THIAMINE HCL 100 MG TAB PO SCH (08:47)
[2017-03-23] MEDS: levETIRAcetam 500 MG TAB PO SCH ×2 (08:47→22:18)
[2017-03-23] MEDS: SERTRALINE HCL 100 MG TAB PO SCH ×2 (08:47→22:17)
[2017-03-23] MEDS: BUDESONIDE-FORMOTEROL 80/4.5 MCG INHALER INH SCH ×2 (08:48→22:19)
[2017-03-23] MEDS: NEOMYCIN/POLYMYXIN/BACITRACIN OINT 15 GM TUBE TOPICAL SCH ×2 (08:57→22:20)
[2017-03-23] MEDS: CYCLOBENZAPRINE HCL 10 MG TAB PO PRN (09:21)
--- NOTE | 2017-03-23 09:47 | PD.TTN ---
Patient Problems 1. Discharge planning 2. Medication compliance 3. Knowledge deficit 4. Lack of coping skills Progress Toward Goals Provider Present: Dr. Phil Cisneros Provider Input: Pt continues to express suicidal ideation and medication regiment will be adjusted. 03/23 Patient is denying suicidial ideations if he forsees a placement at an [facility]. Patient is compliant with medications and will continue his medication regiment. Nurse(s) Input: Patient came to nurses window as for PRN medications. Patient is seclusive to room and is noted to be possibly malingering. Patient is disheveled looking. Patient is attending to ADLs and eating. Psychiatric Counselors Present: Dipak Felipe [facility] Psych Therapist Input: Pt continues to appear depressed, suicidal, appropriate, cooperative, organized and oriented. He presents with fair insight into condition and need for care. Pt presents with limited coping skills at this time as evidenced by ongoing issues coping with his distress. Pt has been compliant with medication regiment and treatment. 03/23 Patient is open to going to placement. [facility] will come and assess patient today and will continue care there if accepted. Group Spec/RT/OT/MELTON Present: GERONIMO Fairbanks Group Spec/RT/OT/MELTON Input: Pt has attended one group since admission yesterday. He appears motivated to obtain help. 03/23 Patient participates in group. Social with peers on the unit. Discharge Plan [facility] Counselor will assist with possible placement in [place] though he may be a homeless discharge if placement cannot be obtained. He will be linked to outpatient psychiatric follow up services regardless of placement. Sally Rodriguez [facility] Mar 23, 2017 09:47
--- NOTE | 2017-03-23 11:38 | HHI.PYPN ---
Subjective Remarks Patient seen and examined with nurse. Chart reviewed. Case discussed in treatment team. On my examination today, the patient says that he remains depressed but denies any active suicidal or homicidal ideation. He is more future oriented. He says that he slept well overnight. He seems more focused on self-care and asks about receiving immunization, in particular for flu, today. He denies any audiovisual hallucinations 2 days. Denies side effects from medications. No physical complaints. Review of Systems Except as stated in HPI: all other systems reviewed are Neg Mental Status Examination Appearance: Appropriate Consciousness: Alert Orientation: x4 Motor Activity: Other (no abnormal motor movements noted) Speech: Unremarkable Language: Adequate Fund of Knowledge: Adequate Attention and Concentration: Adequate Memory: Unremarkable Mood: Other (reportedly depressed but improving) Affect: Other (remains fairly full and reactive and and consistent with stated mood) Thought Process & Associations: Intact Thought Content: Appropriate Hallucination Type: None Delusion Type: None Suicidal Ideation: No Suicidal Plan: No Suicidal Intention: No Homicidal Ideation: No Homicidal Plan: No Homicidal Intention: No Insight: Poor Judgment: Poor Mental Status Exam Remarks No signs of withdrawal noted. Results Labs Labs reviewed. No new labs. Vitals/IOs Vital Signs Date Time Temp Pulse Resp B/P (MAP) Pulse Ox O2 Delivery O2 Flow Rate FiO2 03/23/17 06:39 98.3 64 17 132/80 (97) 98 Intake and Output 03/23/17 03/23/17 03/24/17 08:00 16:00 00:00 Intake Total 480 ml Balance 480 ml Assessment & Plan Problem List: (1) Adjustment disorder with mixed disturbance of emotions and conduct ICD Codes: F43.25 - Adjustment disorder with mixed disturbance of emotions and conduct Status: Acute (2) Polysubstance dependence ICD Codes: F19.20 - Other psychoactive substance dependence, uncomplicated Assessment & Plan Titrate Risperdal to 1.5 mg twice daily to augment patient's Zoloft for treatment of reported depressive symptoms. I have ordered flu vaccination. Podiatry and put noted and appreciated. Continue to monitor on the inpatient unit. Continue other medications and care as ordered. Justification for Cont. Inpt. Med changes. Discharge Planning Possible discharge to [facility] within the next day or 2. Case discussed with counselor. Request HC Surrog/Guard Advoc?: No Alex Cisneros MD Mar 23, 2017 11:38
[2017-03-23] MEDS ORDERED: INFLUENZA VIRUS VACCINE (QUADRIVALENT) 0.5 ML SYR IM ONE (12:00)
[2017-03-23] MEDS: hydrOXYzine HCL 50 MG TAB PO PRN ×2 (14:06→22:26)
[2017-03-23 18:00] VITALS: BP 112/59; PULSE 61; RESP 17; TEMP 98; O2SAT 98
[2017-03-23] MEDS: ATORVASTATIN 10 MG TAB PO SCH (22:19)
[2017-03-24 06:05] VITALS: BP 121/67; PULSE 57; RESP 17; TEMP 97.8; O2SAT 97
[2017-03-24] MEDS: PANTOPRAZOLE SOD 40 MG DELAYED RELEASE TAB PO SCH (08:34)
[2017-03-24] MEDS: SERTRALINE HCL 100 MG TAB PO SCH (08:34)
[2017-03-24] MEDS: CARVEDILOL 3.125 MG TAB PO SCH (08:34)
[2017-03-24] MEDS: BUDESONIDE-FORMOTEROL 80/4.5 MCG INHALER INH SCH (08:35)
[2017-03-24] MEDS: risperiDONE 1 MG TAB PO SCH (08:35)
[2017-03-24] MEDS: THIAMINE HCL 100 MG TAB PO SCH (08:35)
[2017-03-24] MEDS: GABAPENTIN 400 MG CAP PO SCH ×2 (08:35→12:10)
[2017-03-24] MEDS: FOLIC ACID 1 MG TAB PO SCH (08:35)
[2017-03-24] MEDS: levETIRAcetam 500 MG TAB PO SCH (08:35)
[2017-03-24] MEDS: NEOMYCIN/POLYMYXIN/BACITRACIN OINT 15 GM TUBE TOPICAL SCH (08:39)
[2017-03-24] MEDS ORDERED: Eucerin Cream TOPICAL (08:44)
[2017-03-24] MEDS ORDERED: LEVE500 PO (08:44)
[2017-03-24] MEDS ORDERED: SYMB80AE INH (08:44)
[2017-03-24] MEDS ORDERED: ATOR10TA15 PO (08:44)
[2017-03-24] MEDS ORDERED: CARV3.125 PO (08:44)
[2017-03-24] MEDS ORDERED: VENTAER INH (08:44)
[2017-03-24] MEDS ORDERED: TRIPOIN TOPICAL (08:44)
[2017-03-24] MEDS ORDERED: ZOLO100T PO (08:44)
[2017-03-24] MEDS ORDERED: RISP1 PO (08:44)
[2017-03-24] MEDS ORDERED: TRAZ50TA12 PO (08:44)
[2017-03-24] MEDS ORDERED: PANT40TA3 PO (08:44)
[2017-03-24] MEDS ORDERED: NEUR400C PO (08:44)
--- NOTE | 2017-03-24 08:45 | HHI.DS ---
Psychiatry Discharge Summary Inpatient Psychiatric care?: Yes Advance Directive: No Reason Not Provided: doesnt have. Mental Health AdvanceDirective: No Health Care Proxy: No Admission Admission Date Mar 17, 2017 at 23:15 Admission Diagnosis: (1) Adjustment disorder with mixed disturbance of emotions and conduct ICD Code: F43.25 - Adjustment disorder with mixed disturbance of emotions and conduct (2) Polysubstance dependence ICD Code: F19.20 - Other psychoactive substance dependence, uncomplicated Brief History Mr. Small is a 61-year-old male with a reported history of bipolar disorder and PTSD who presents under a [place] ACT by the [place] [employer] alleging that the patient said that he was having issues with obtaining a cell phone and was done with life. He allegedly told the officer that he was going to kill himself by passing out drunk and laying in the railroad tracks. Reviewing our electronic medical record, I note that the patient was admitted most recently here in June of this year under Dr. Rivera. He is noted in Dr. Rivera's discharge summary to have been demanding and entitled throughout his hospital stay. He was also noted to be easily agitated and threatening to other patients if he felt criticized or slighted. The patient's alcohol level on presentation here was 165 and his urine toxicology was positive for cannabinoids. The patient was seen and examined with nurse. Chart reviewed. Case discussed with nursing staff. On my examination this morning, the patient is clinically sober. He presents as fairly manipulative and antisocial. He tells me "I have been devoting my whole time and energy to getting a place. I have been trying to get a phone." The patient relates that he went to [facility], but there was some issue with a security code on his credit card. He says that he corrected this issue and tried to call back yesterday to obtain a cell phone, but "the idiot I talked to, broke me." He says "all I do is lose. As soon as I get out of here I am going to kill myself. Life has been too much for me. All I do is lose. Why play the game?" He says that his plan is to drink a 1.75 liter bottle of rum and go pass out on the railroad tracks until a train hits him. He endorses low mood, anhedonia, hopeless feelings. No reported sleep or appetite disturbance. He says that he has been nonadherent with his psychotropic medications for about four days, and these were most recently Zoloft and Risperdal. He endorses auditory hallucinations of "people talking to me about God, evil." He does not appear internally stimulated. He also reports that he is visually impaired, although he was noted to navigate the hallway to the interview room without difficulty, and he reports that he sees a taxicab in the area that his visual field would normally occupy. No delusional beliefs. No reported PTSD symptoms. The remainder of the psychiatric ROS is negative. The patient verbalizes no physical complaints at this time. Tobacco Use In Past 30 Days: No Tobacco Past 30 Days Alcohol Use: 4 or More Times Per Week Hospital Course Patient was admitted to a locked, inpatient psychiatric unit. A general medical consultation was obtained. Appropriate precautions were in place throughout patient's hospital stay. Patient was seen and examined on the unit by psychiatry and also visited by counselor. Psychotropic medications were adjusted, and patient tolerated medication changes well without side effects. With the benefit of observation on the unit, it seems likely that the patient was malingering his presenting psychiatric symptoms for skilled nursing. However, even when housing was arranged for in the community, patient was noted to be entitled and dictating of his care and of the circumstances of his discharge. Some degree of antisocial personality is suspected. Counselor has worked to accommodate the more reasonable of his demands. There was no evidence of any suicidality or homicidality on the inpatient unit. There was no evidence of clinically significant withdrawal. On the day of discharge: Patient seen and examined with nurse. Chart reviewed. Case discussed with counselor and nurse. No behavioral issues overnight. Patient is noted to be laughing and smiling and appears generally euthymic. I can elicit no depressive or hypomanic/manic symptoms. He denies any suicidal or homicidal ideation, intent or plan and contracts for safety. He denies audiovisual hallucinations, and I can elicit no delusional material. There is no evidence of impairment in reality construction. He denies side effects from medications. No physical complaints. Suicide and violence risk assessment on day of discharge both suggest lower imminent risk, and patient's level of function is adequate for outpatient care. I do think it is likely that if patient's fortunes should change and he should once again become homeless in the future he will likely malinger psychiatric symptoms again or possibly even make some sort of gesture to regain admission to the inpatient psychiatric unit. Patient is to follow-up psychiatrically as arranged by counselor. I have also recommended chemical dependency evaluation and treatment to the patient on an outpatient basis. Patient is to follow-up with primary care. I have counseled the patient to return to the psychiatric emergency room for any concerning psychiatric symptoms as part of a general safety plan. Results Blood Pressure 121 / 67 Vital Signs Date Time Temp Pulse Resp B/P (MAP) Pulse Ox O2 Delivery O2 Flow Rate FiO2 03/24/17 06:05 97.8 57 17 121/67 (85) 97 Laboratory Results Test 03/18/17 12:08 Cholesterol Level 181 MG/DL (120-200) HDL Cholesterol 126.5 MG/DL (40.0-60.0) Hemoglobin A1c 5.2 % (4.3-6.0) LDL Cholesterol 44 MG/DL (0-99) Triglycerides Level 53 MG/DL (42-150) Summary of Procedures None done Imaging None done Pending results at discharge: No Medications # of Antipsychotic meds at D/C: 1 Approp Antipsych med options 1 - Minimum of three failed multiple trials of monotherapy. 2 - Documented plan to taper to monotherapy due to previous use of multiple meds OR cross-taper in progress at D/C. 3 - Documentation of augmentation of Clozapine. 4 - Justification other than those listed in allowable values 1-3, document here : Discharge Discharge Date: Mar 24, 2017 Discharge Diagnosis: (1) Adjustment disorder with mixed disturbance of emotions and conduct Diagnosis: Principal (resolved) ICD Code: F43.25 - Adjustment disorder with mixed disturbance of emotions and conduct Status: Acute (2) Malingering Diagnosis: Secondary ICD Code: Z76.5 - Malingerer [conscious simulation] (3) Polysubstance dependence Diagnosis: Secondary ICD Code: F19.20 - Other psychoactive substance dependence, uncomplicated Pt Condition on Discharge: Stable Discharge Disposition: Discharge Home Discharge Instructions Diet Instructions: As Tolerated, No Restrictions Activities you can perform: Weight Bearing as Munir Scheduled Appointment: as per counselor's notes New Orders: BASIC METABOLIC PROF - 1 Week New Medications: Hydroxyzine HCl (Hydroxyzine HCl) 50 Mg Tab 50 MG PO Q6H PRN for ANXIETY, #10 TAB 2 Refills Lhgfrrdc-Oveuqeoiuw-Hwxdweqvx (Triple Antibiotic 3.5-400-5000) 3.5 Mg-400 Unit-5 ,000 Unit/Gram Oin 1 APPLIC TOPICAL Q12HR for Health, #1 TUBE 1 Refill Apply to fissures on feet and dress them as instructed. Pantoprazole (Pantoprazole) 40 Mg Tab 40 MG PO DAILY for Reflux for 10 Days, #10 TAB 2 Refills Risperidone (Risperdal) 1 Mg Tab 1.5 MG PO Q12HR for Mental Health for 10 Days, TAB 2 Refills [Eucerin Cream] () 120 APPLIC/120 GM CR 1 APPLIC TOPICAL Q6H PRN for DRY SKIN, #1 TUBE Apply to bottom of both feet as instructed. Exercise caution to avoid slipping. Changed Medications: Albuterol 18 GM Inh (Ventolin Hfa 18 GM Inh) 90 Mcg/Act Aer 2 PUFF INH Q4HR PRN for SHORTNESS OF BREATH, #1 INHALER 0 Refills (Changed from : Q2HR; Refills: ) Continued Medications: Atorvastatin (Atorvastatin) 10 Mg Tab 10 MG PO HS for Cholesterol Management for 10 Days, TAB 2 Refills (This prescription has been renewed) Budesonide-Formoterol Inh (Symbicort Inh) 80-4.5 Mcg/Act Aero 1 PUFF INH Q12HR for Asthma Management, #1 INHALER 0 Refills (This prescription has been renewed) Carvedilol (Coreg) 3.125 Mg Tab 3.125 MG PO BID for Blood Pressure Management for 10 Days, #20 TAB 2 Refills ( This prescription has been renewed) Cyclobenzaprine (Flexeril) 10 Mg Tab 10 MG PO TID PRN for MUSCLE SPASM, #90 TAB 0 Refills Gabapentin (Neurontin) 400 Mg Cap 400 MG PO TID for Health for 10 Days, CAP 2 Refills (This prescription has been renewed) Levetiracetam (Keppra) 500 Mg Tab 500 MG PO BID for Control Seizures for 10 Days, #20 TAB 2 Refills (This prescription has been renewed) Sertraline (Zoloft) 100 Mg Tab 100 MG PO BID for Mental Health for 10 Days, #20 TAB 2 Refills (This prescription has been renewed) Trazodone (Trazodone) 50 Mg Tab 50 MG PO HS PRN for INSOMNIA for 10 Days, TAB 2 Refills (This prescription has been renewed) Discontinued Medications: Clonazepam (Klonopin) 0.5 Mg Tab 0.5 MG PO Q12HR, #[address] (Diclofenac Sodium DR) 75 Mg Tabdr 75 MG PO BID PRN for PAIN SCALE 1 TO 10, #20 TAB Hydrocodone-Acetaminophen ([place]) 7.5-325 mg Tab 1 TAB PO Q4H PRN for PAIN, TAB 0 Refills Omeprazole (Omeprazole) 40 Mg Cap 40 MG PO DAILY for Reflux, #30 CAP 0 Refills Sulfamethoxazole-Trimethoprim (Bactrim DS) 800-160 Mg Tab 1 TAB PO BID for Infection for 10 Days, TAB Discharge Time <= 30 minutes Mental Status Examination Appearance: Appropriate Consciousness: Alert Orientation: x4 Motor Activity: Other (no hand tremor, no dystonia, no dyskinesia, no other motoric abnormalities noted.) Speech: Unremarkable Language: Adequate Fund of Knowledge: Adequate Attention and Concentration: Adequate Memory: Unremarkable Mood: Appropriate, Other ("I'm feeling better") Affect: Appropriate, Euthymic Thought Process & Associations: Intact, Logical, Linear Thought Content: Appropriate Hallucination Type: None Delusion Type: None Suicidal Ideation: No Suicidal Plan: No Suicidal Intention: No Homicidal Ideation: No Homicidal Plan: No Homicidal Intention: No Insight: Poor Judgment: Poor Mental Status Exam Remarks No signs of withdrawal noted Discharge/Advance Care Plan Health Problems: (1) Adjustment disorder with mixed disturbance of emotions and conduct (2) Polysubstance dependence Goals to promote your health * To prevent worsening of your condition and complications * To maintain your health at the optimal level Directions to meet your goals Take your medications as prescribed Follow your dietary instruction Follow activity as directed Keep your appointments as scheduled Take your immunizations and boosters as scheduled If your symptoms worsen call your PCP, if no PCP go to Urgent Care Center or Emergency Room For 02/11 questions related to your inpatient stay or results of tests pending at discharge, please contact Dr. Alex Cisneros at Smoking is Dangerous to Your Health. Avoid second hand smoking Alex Cisneros MD Mar 24, 2017 08:45
[2017-03-24] MEDS: CYCLOBENZAPRINE HCL 10 MG TAB PO PRN (08:52)
[2017-03-24] MEDS ORDERED: HYDR50TA94 PO (10:58)
[2017-03-24] MEDS: hydrOXYzine HCL 50 MG TAB PO PRN (12:13)
== END 2017-03-24 15:15 | disposition home or self-care (01) | DRG 882 ==
LOC: NEDAMB 16:09 → NEDA 23:15 → H270 03-18 00:15 → H260 03-20 12:45
PROVIDERS: ADMIT Psychiatry & Neurology Psychiatry; ATTEND Psychiatry & Neurology Psychiatry
DX: F43.25 Adjustment disorder with mixed disturbance of emotions and conduct (principal); R45.851 Suicidal ideations; I10 Essential (primary) hypertension; F19.20 Other psychoactive substance dependence, uncomplicated; F41.9 Anxiety disorder, unspecified; I25.2 Old myocardial infarction; J44.9 Chronic obstructive pulmonary disease, unspecified; I25.10 Atherosclerotic heart disease of native coronary artery without angina pectoris; F60.2 Antisocial personality disorder; F43.10 Post-traumatic stress disorder, unspecified; F12.90 Cannabis use, unspecified, uncomplicated; F31.9 Bipolar disorder, unspecified; F10.10 Alcohol abuse, uncomplicated; H54.7 Unspecified visual loss; H35.30 Unspecified macular degeneration; E78.5 Hyperlipidemia, unspecified; L85.3 Xerosis cutis; F17.210 Nicotine dependence, cigarettes, uncomplicated; Y90.6 Blood alcohol level of 120-199 mg/100 ml; Z23 Encounter for immunization; Z59.0 Homelessness; Z76.5 Malingerer [conscious simulation]; Z86.14 Personal history of Methicillin resistant Staphylococcus aureus infection; Z86.718 Personal history of other venous thrombosis and embolism; Z86.73 Personal history of transient ischemic attack (TIA), and cerebral infarction without residual deficits; Z91.013 Allergy to seafood; Z91.5 Personal history of self-harm
CPT/HCPCS: 80048; 80053; 80061; 80307; 82607; 83036; 84443; 85025; 90686; 93005; 99285; L1810; L3908; Q0163; Q2038

== ENCOUNTER 2017-10-21 13:29 | Inpatient (IN) ==
[2017-10-21] MEDS ORDERED: Sod Chloride 0.9% Inj 1,000 ML IV.SIG ONE (14:04)
--- NOTE | 2017-10-21 14:18 | ED ---
HPI General Chief complaint: Skin/Abscess/Foreign Body Stated complaint: Medical/Evac Time Seen by Provider: 10/21/17 13:46 Source: patient and EMS Mode of arrival: ambulatory Limitations: no limitations History of Present Illness HPI narrative: Patient is a 62-year-old male presenting to the emergency department for evaluation of weakness. Patient states his been unable to walk around today. He reports subjective fevers and chills. He reports that he thinks he might have been bitten by a spider, he has lesions to his left lower leg, right forearm right lower leg. Patient is legally blind. His symptoms started yesterday. Patient is currently undomiciled. He denies any shortness of breath or chest pain, he denies any abdominal pain, nausea or vomiting. Patient reports that he did drink 2 beers this morning but he also drinks plenty of water per his report. Onset (ago): day(s) (2) Location: lower extremity (bilateral ) Radiation: extremity Severity: moderate Severity scale (1-10): 7 Quality: aching and other (cramping) Pain Consistency: constant Relieving factors: none Exacerbating factors: movement Associated symptoms: denies other symptoms Related Data Home Medications Medication Instructions Recorded Confirmed Coreg 10/21/17 Keppra 10/21/17 Lipitor 10/21/17 Neurontin 10/21/17 cyclobenzaprine 10/21/17 Allergies Allergy/AdvReac Type Severity Reaction Status Date / Time carbamazepine Allergy Severe APLASTIC Verified 10/21/17 14:18 ANEMIA dantrolene Allergy Severe LIVER Verified 10/21/17 14:18 DISEASE diatrizoate meglumine Allergy Severe ANAPHYLACTIC Verified 10/21/17 14:18 SHOCK gadobenic acid Allergy Severe ANAPHYLACTIC Verified 10/21/17 14:18 SHOCK gadodiamide Allergy Severe ANAPHYLACTIC Verified 10/21/17 14:18 SHOCK gadoteridol Allergy Severe ANAPHYLACTIC Verified 10/21/17 14:18 SHOCK iodine Allergy Severe anaphylaxis Verified 10/21/17 14:18 iodixanol Allergy Severe ANAPHYLACTIC Verified 10/21/17 14:18 SHOCK iohexol Allergy Severe ANAPHYLACTIC Verified 10/21/17 14:18 SHOCK potassium iodide Allergy Severe anaphylaxis Verified 10/21/17 14:18 povidone-iodine Allergy Severe anaphylaxis Verified 10/21/17 14:18 sodium iodide Allergy Severe anaphylaxis Verified 10/21/17 14:18 sodium iodide Allergy Severe anaphylaxis Verified 10/21/17 14:18 triazolam Allergy Severe CRAZY Verified 10/21/17 14:18 shellfish derived Allergy Unknown Anaphylaxis Verified 10/21/17 14:18 Review of Systems Except as stated in HPI: all other systems reviewed are negative Constitutional Reports chills, Reports fever(s) and Reports weakness Cardiovascular Denies chest pain, Denies dyspnea and Denies dyspnea on exertion Respiratory Reports system reviewed and no additional complaints, except as [facility] Gastrointestinal Reports system reviewed and no additional complaints, except as [facility] Genitourinary Reports system reviewed and no additional complaints, except as [facility] Musculoskeletal Reports myalgias, Reports muscle cramps and Reports muscle weakness Integumentary/Breasts Reports change in pigmentation and Reports changing lesions Psychiatric Reports system reviewed and no additional complaints, except as [facility] Endocrine Reports system reviewed and no additional complaints, except as [facility] Hematologic/Lymphatic Reports system reviewed and no additional complaints, except as [facility] PMFSH Surgical History Surgical History History of surgery on arm (Acute) S/P rotator cuff repair (Acute) Social History Social History Substance History: No History of Abuse Second Hand Smoke Exposure: No Smoking Status: Current every day smoker Tobacco Type: Cigarettes How Often Do You Have a Drink Containing Alcohol: 4 or more times a week Recent Travel in [facility] within the Last 8 Weeks: No Recent Out of Country Travel within the Last 8 Weeks: No Immunization History Tetanus Immunization: Unsure Hx Influenza Vaccine This Season: No Exam Narrative Exam Narrative: GENERAL: Well-developed, well-nourished, disheveled male. Presenting in no acute distress. SKIN: Focused skin assessment warm/dry. 2 cm area of excoriation to the left lower leg just proximal to the ankle anteriorly. 2 cm excoriation to the right posterior forearm, 2 cm excoriation to the right lower leg. Edema and erythema noted to the left lower leg. HEAD: Atraumatic. Normocephalic. EYES: Pupils equal and round. No scleral icterus. No injection or drainage. ENT: No nasal bleeding or discharge. Mucous membranes pink and moist. NECK: Trachea midline. No JVD. CARDIOVASCULAR: Regular rate and rhythm. No murmur appreciated. RESPIRATORY: No accessory muscle use. Clear to auscultation. Breath sounds equal bilaterally. GASTROINTESTINAL: Abdomen soft, non-tender, nondistended. Hepatic and splenic margins not palpable. MUSCULOSKELETAL: No obvious deformities. No clubbing. No cyanosis. No edema. NEUROLOGICAL: Awake and alert. No obvious cranial nerve deficits. Motor grossly within normal limits. Normal speech. PSYCHIATRIC: Appropriate mood and affect; insight and judgment normal. Course Initial Documented Vital Signs Temperature 99.0 F 10/21/17 13:54 Pulse Rate 79 10/21/17 13:54 Respiratory Rate 20 10/21/17 13:54 Blood Pressure 110/59 L 10/21/17 13:54 Pulse Oximetry 97 10/21/17 13:54 Last Documented Vital Signs Temperature 98.4 F 10/22/17 08:00 Pulse Rate 78 10/22/17 08:00 Respiratory Rate 18 10/22/17 08:00 Blood Pressure 112/68 10/22/17 08:00 Pulse Oximetry 99 10/22/17 08:00 Medical Decision Making MDM Narrative Medical decision making narrative: Patient is a 62-year-old male presenting to the emergency department for evaluation of weakness, subjective fever and chills , skin lesions. Patient's vital signs are stable, he is mildly hypertensive on arrival. Labs and imaging ordered and pending. Labs reviewed, CBC with a WBC count of 17.6 with slight left shift. Potassium 3.2. Oral replacement ordered. Ultrasound of the left lower extremities negative for DVT. Vital signs are reassessed patient with a temp of 101.4, acetaminophen 1000 mg p.o. 1 dose ordered. Patient will be started on vancomycin and Zosyn empirically. Patient meets sepsis protocol. Patient will be admitted. Lab Data Lab results reviewed: Yes I reviewed the patient's lab results. Result diagrams: 10/21/17 14:15 10/21/17 14:15 Lab Results 10/21/17 10/21/17 10/21/17 Range/Units 14:15 14:15 14:15 WBC 17.6 H (4.0-11.0) th/mm3 RBC 4.08 L (4.50-5.90) mil/mm3 Hgb 14.6 (13.0-17.0) gm/dL Hct 42.5 (39.0-51.0) % MCV 104.2 H (80.0-100.0) fL MCH 35.7 H (27.0-34.0) pg MCHC 34.3 (32.0-36.0) % RDW 14.6 (11.6-17.2) % Plt Count 179 (150-450) th/mm3 MPV 7.8 (7.0-11.0) fL Prelim Diff (Auto) Slide review pending Neut % (Auto) 75.4 H (16.0-70.0) % Lymph % (Auto) 9.6 (9.0-44.0) % Ada % (Auto) 14.6 H (0.0-8.0) % Eos % (Auto) 0.0 (0.0-4.0) % Baso % (Auto) 0.4 (0.0-2.0) % Neut # (Auto) 13.2 H (1.8-7.7) th/mm3 Lymph # (Auto) 1.7 (1.0-4.8) th/mm3 Ada # (Auto) 2.6 H (0.0-0.9) th/mm3 Eos # (Auto) 0.0 (0.0-0.4) th/mm3 Baso # (Auto) 0.1 (0.0-0.2) th/mm3 WBC Differential . Diff Scan Auto diff confirmed Differential Comment . Sodium 138 (136-145) meq/L Potassium 3.2 L (3.5-5.1) meq/L Chloride 102 (98-107) meq/L Carbon Dioxide 21.1 (21.0-32.0) meq/L Anion Gap 15 (5-15) meq/L BUN 6 L (7-18) mg/dL Creatinine 0.96 (0.60-1.30) mg/dL Estimated GFR 79 L (>89) mL/min Random Glucose 96 (74-106) mg/dL Calcium 8.2 L (8.5-10.1) mg/dL Magnesium 2.1 (1.5-2.5) mg/dL Total Bilirubin 0.7 (0.2-1.0) mg/dL AST 15 (15-37) U/L ALT 18 (12-78) U/L Alkaline Phosphatase 60 (45-117) U/L Total Creatine Kinase 44 (39-308) U/L Total Protein 7.4 (6.4-8.2) g/dL Albumin 3.2 L (3.4-5.0) g/dL Urine Color (Yellw/Straw) Urine Clarity (Clear) Urine pH (5.0-8.5) Ur Specific [place] (1.002-1.035) Urine Protein (Neg-Trace) mg/dL Urine Glucose (UA) (Negative) mg/dL Urine Ketones (Negative) mg/dL Urine Occult Blood (Negative) Urine Nitrate (Negative) Urine Bilirubin (Negative) Urine Urobilinogen (Less than 2) mg/dL Ur Leukocyte Esterase (Negative) Urine RBC (0-3) /hpf Urine WBC (0-5) /hpf Ur Squamous Epith Cells (0-5) /hpf Hyaline Casts (0-3) /lpf Urine Mucus (Occasional) /lpf Micro UA Comment Urine Culture Comments 10/21/17 Range/Units 14:30 WBC (4.0-11.0) th/mm3 RBC (4.50-5.90) mil/mm3 Hgb (13.0-17.0) gm/dL Hct (39.0-51.0) % MCV (80.0-100.0) fL MCH (27.0-34.0) pg MCHC (32.0-36.0) % RDW (11.6-17.2) % Plt Count (150-450) th/mm3 MPV (7.0-11.0) fL Prelim Diff (Auto) Neut % (Auto) (16.0-70.0) % Lymph % (Auto) (9.0-44.0) % Ada % (Auto) (0.0-8.0) % Eos % (Auto) (0.0-4.0) % Baso % (Auto) (0.0-2.0) % Neut # (Auto) (1.8-7.7) th/mm3 Lymph # (Auto) (1.0-4.8) th/mm3 Ada # (Auto) (0.0-0.9) th/mm3 Eos # (Auto) (0.0-0.4) th/mm3 Baso # (Auto) (0.0-0.2) th/mm3 WBC Differential Diff Scan Differential Comment Sodium (136-145) meq/L Potassium (3.5-5.1) meq/L Chloride (98-107) meq/L Carbon Dioxide (21.0-32.0) meq/L Anion Gap (5-15) meq/L BUN (7-18) mg/dL Creatinine (0.60-1.30) mg/dL Estimated GFR (>89) mL/min Random Glucose (74-106) mg/dL Calcium (8.5-10.1) mg/dL Magnesium (1.5-2.5) mg/dL Total Bilirubin (0.2-1.0) mg/dL AST (15-37) U/L ALT (12-78) U/L Alkaline Phosphatase (45-117) U/L Total Creatine Kinase (39-308) U/L Total Protein (6.4-8.2) g/dL Albumin (3.4-5.0) g/dL Urine Color Yellow (Yellw/Straw) Urine Clarity Clear (Clear) Urine pH 6.0 (5.0-8.5) Ur Specific [place] 1.008 (1.002-1.035) Urine Protein Negative (Neg-Trace) mg/dL Urine Glucose (UA) Negative (Negative) mg/dL Urine Ketones Negative (Negative) mg/dL Urine Occult Blood Small H (Negative) Urine Nitrate Negative (Negative) Urine Bilirubin Negative (Negative) Urine Urobilinogen Less than 2 (Less than 2) mg/dL Ur Leukocyte Esterase Negative (Negative) Urine RBC 1 (0-3) /hpf Urine WBC 1 (0-5) /hpf Ur Squamous Epith Cells <1 (0-5) /hpf Hyaline Casts 6 (0-3) /lpf Urine Mucus Few H (Occasional) /lpf Micro UA Comment Culture not ind Urine Culture Comments Culture not ind Imaging Data Radiologist's impression: ITS Impressions Chest X-Ray 10/21/17 14:04 CONCLUSION: No acute abnormality seen. Venous Doppler Study 10/21/17 14:04 CONCLUSION: No DVT. Discharge Plan Discharge Disposition Patient Disposition: 30 Still Patient Discharge Condition Condition: Stable Discharge Details Diagnosis: Cellulitis, Weakness, Sepsis Physicians Team ED Provider: Lizzette Orellana ED Midlevel Provider: Kristi Doherty Primary Care Provider: Primary Care Milly Nguyen Attending Provider: Shahriar Dallas Status ED Status: Admitted Patient
[2017-10-21 14:31] LABS: Baso # (Auto) 0.1 th/mm3 (0.0-0.2); Baso % (Auto) 0.4 % (0.0-2.0); Hematocrit 42.5 % (39.0-51.0); Hemoglobin 14.6 gm/dL (13.0-17.0); Lymph # (Auto) 1.7 th/mm3 (1.0-4.8); Lymph % (Auto) 9.6 % (9.0-44.0); Mean Corpuscular HGB Conc 34.3 % (32.0-36.0); Mean Corpuscular Hemoglobin 35.7 pg (27.0-34.0); Mean Corpuscular Volume 104.2 fL (80.0-100.0); Mean Platelet Volume 7.8 fL (7.0-11.0); Mono # (Auto) 2.6 th/mm3 (0.0-0.9); Mono % (Auto) 14.6 % (0.0-8.0); Neut # (Auto) 13.2 th/mm3 (1.8-7.7); Neut % (Auto) 75.4 % (16.0-70.0); Platelet Count 179 th/mm3 (150-450); Red Blood Count 4.08 mil/mm3 (4.50-5.90); Red Cell Distribution Width 14.6 % (11.6-17.2); White Blood Count 17.6 th/mm3 (4.0-11.0)
[2017-10-21 14:50] LABS: Albumin 3.2 g/dL (3.4-5.0); Anion Gap 15 meq/L (5-15); Aspartate Aminotransferase 15 U/L (15-37); Blood Urea Nitrogen 6 mg/dL (7-18); Calcium 8.2 mg/dL (8.5-10.1); Carbon Dioxide 21.1 meq/L (21.0-32.0); Chloride 102 meq/L (98-107); Glomerular Filtration Rate 79 mL/min (>89); Glucose,Random 96 mg/dL (74-106); Potassium 3.2 meq/L (3.5-5.1); Sodium 138 meq/L (136-145)
[2017-10-21 14:51] LABS: Bilirubin,Urine Negative (Negative); Clarity,Urine Clear (Clear); Color,Urine Yellow (Yellw/Straw); Glucose,Urine (UA) Negative (Negative); Hyaline Casts,Urine 6 /lpf (0-3); Leukocyte Esterase,Urine Negative (Negative); Mucus,Urine Few /lpf (Occasional); Nitrite,Urine Negative (Negative); Specific Gravity,Urine 1.008 (1.002-1.035); Squamous Epithelial Cell,Urine <1 /hpf (0-5)
[2017-10-21 14:51] LABS: Magnesium 2.1 mg/dL (1.5-2.5)
--- NOTE | 2017-10-21 14:52 | XR ---
EXAM DATE: 10/21/2017 2:33 PM EDT AGE/SEX: 62 years / Male INDICATIONS: Short of breath and fever. CLINICAL DATA: This is the patient's initial encounter. Patient reports that signs and symptoms have been present for 1 day and indicates a pain score of 0/10. MEDICAL/SURGICAL HISTORY: None. None. COMPARISON: [facility] [place], CHEST SINGLE AP, 08/08/2016. . FINDINGS: The heart size is normal. The lungs appear grossly clear. No effusion is seen. Metallic fragments are seen over the left upper chest. Surgical wires are seen in the left upper chest. There is chronic de formity from several ribs of the upper left chest. CONCLUSION: No acute abnormality seen. Electronically signed by: Renny Polanco MD 10/21/2017 2:51 PM EDT
[2017-10-21 14:53] LABS: Alanine Aminotransferase 18 U/L (12-78); Alkaline Phosphatase 60 U/L (45-117); Total Protein 7.4 g/dL (6.4-8.2)
--- NOTE | 2017-10-21 16:05 | US ---
EXAM DATE: 10/21/2017 3:57 PM EDT AGE/SEX: 62 years / Male INDICATIONS: Left leg swelling. CLINICAL DATA: This is the patient's initial encounter. Patient reports that signs and symptoms have been present for 1 week and indicates a pain score of 2/10. MEDICAL/SURGICAL HISTORY: . Macular degeneration. Seizure. [place]. Head injury. . Arm surger y. Shoulder surgery. COMPARISON: [facility] – [place], US LEG BILATERAL VENOUS DOPPLER, 11/01/2016. . TECHNIQUE: Venous ultrasound of both lower extremities was performed from the inguinal ligament to t he proximal calf. Real-time, color Doppler and spectral tracing, compression and augmentation techni ques were used. FINDINGS: Normal compression of the deep venous system from the inguinal region to the proximal calf . No echogenic clot is seen. Normal response of the venous system to augmentation and respiration. CONCLUSION: No DVT. Electronically signed by: Renny Polanco MD 10/21/2017 4:04 PM EDT
[2017-10-21] MEDS ORDERED: Piperacil/Tazo 3.375 GM Premix 50 ML IV.SIG ONE (18:07)
[2017-10-21] MEDS ORDERED: Acetaminophen 500 MG Tablet PO ONE (18:20)
[2017-10-21] MEDS ORDERED: Bisacodyl 10 MG Supp RECTAL PRN (19:00)
[2017-10-21] MEDS ORDERED: Acetaminophen 325 MG Tablet PO PRN (19:00)
[2017-10-21] MEDS ORDERED: Vancomycin Inj 1 GM/200 ML PIGGYBACK IV.SIG SCH (19:00)
[2017-10-21] MEDS ORDERED: Vancomycin Consult Pharmacy 1 EACH OTHER SCH (19:03)
--- NOTE | 2017-10-21 19:36 | P.HPIM ---
History of Present Illness Primary Care Physician: No Primary Care Physician History of Present Illness: This is a 62-year-old Homeless male with a PMH of Seizure Disorder, Legally Blind and CVA who presented to ER with complaints of bilateral lower extremity redness and swelling x5 days. States he normally sleeps outside a friend's store on the concrete, believes he was bitten by a spider. Reports subjective fever and chills. Notes "blister" on his leg and arm that popped on its own today. On arrival, BP 110/59, HR 104, O2 sat 100% on RA, Temp 101.4. WBC 17.6. UA negative. CXR no acute findings. LE Doppler negative for DVT. S/p Vanc/Zosyn in ER. - Diagnosis (1) Sepsis (2) Cellulitis (3) Seizure disorder Inpatient Certification: I certify that the inpatient services were ordered in accordance with Medicare regulations governing the order. This includes certification that hospital inpatient services are reasonable and necessary and in the case of services not specified as inpatient-only under 42 CFR 419.22(n), that they are appropriately provided as inpatient services in accordance to with the 2-midnight benchmark under 43 CFR 412.3(e) Estimated Total Length of Stay (Days): 2 Plans for Post Hospital Care: Not yet determined Review of Systems All other systems reviewed negative except as stated in [facility]PI [facility] - History History Provided By: Patient - Medical History Medical History: Medical History (Last Updated 10/21/17 @ 14:17 by LIA Saab) Head injuries Heart attack Seizure Stroke Macular degeneration - Surgical History Surgical History: Surgical History (Last Updated 10/21/17 @ 14:05 by Tonia Bernstein) History of surgery on arm S/P rotator cuff repair - Tobacco History Second Hand Smoke Exposure: No Tobacco Use In Past 30 Days: Yes Smoking Status: Current every day smoker Tobacco Type: Cigarettes - Alcohol History How Often Do You Have a Drink Containing Alcohol: 4 or more times a week - Substance Use History Substance History: No History of Abuse - Travel History Recent Travel in the USA Within the Last 8 Weeks: No Recent Travel Out of the Country Within the Last 8 Weeks: No - Immunization History Tetanus Immunization: Unsure Hx Influenza Vaccine This Season: No Medications and Allergies Active Medications: Active Medications Acetaminophen (Tylenol) 650 mg PO Q4H PRN PRN Reason: FEVER/PAIN 1-2 Hydrocodone Bitart/Acetaminophen ([place] 5/325) 1 tab PO Q4H PRN PRN Reason: PAIN 3-5 Al Hydroxide/Mg Hydroxide (Milk Of Magnesia Liq) 30 ml PO Q12H PRN PRN Reason: Mild Constipation Bisacodyl (Dulcolax Supp) 10 mg RECTAL DAILY PRN PRN Reason: SEVERE CONSITIPATION Vancomycin/Sodium Chloride (Vancomycin Inj) 1 gm in 200 mls @ 200 mls/hr IV.SIG TOWER DIRECTOR [facility] Stop: 10/21/17 21:00 Last Admin: 10/21/17 19:00 Dose: 200 mls/hr Cefepime HCl 1,000 mg/ Sodium (Chloride) 100 mls @ 200 mls/hr IV.SIG Q12H [facility] Pharmacy Profile Note (Vancomycin Consult Pharmacy) 0 mls @ 0 mls/hr OTHER UNSCH [facility], [facility] Sodium Chloride (Ns Inj) 1,000 mls @ 100 mls/hr IV.CONT .Q10H [facility] Lactulose (Lactulose Liq) 30 ml PO DAILY PRN PRN Reason: SEVERE CONSITIPATION Levetiracetam (Keppra) 500 mg PO BID [facility] Metoclopramide HCl (Reglan Inj) 5 mg IV.PUSH Q6HR PRN; Protocol PRN Reason: NAUSEA OR VOMITING Morphine Sulfate (Morphine Inj) 2 mg IV.PUSH Q4H PRN PRN Reason: PAIN 6-10 Senna/Docusate Sodium (Brigitte-Colace) 1 tab PO BID [facility] Sennosides (Senokot) 17.2 mg PO Q12H PRN PRN Reason: Moderate Constipation Sodium Chloride (Ns Flush) 2 ml IV.FLUSH PRN PRN PRN Reason: FLUSH AFTER USING IV ACCESS Allergies Allergy/AdvReac Type Severity Reaction Status Date / Time carbamazepine Allergy Severe APLASTIC Verified 10/21/17 14:18 ANEMIA dantrolene Allergy Severe LIVER Verified 10/21/17 14:18 DISEASE diatrizoate meglumine Allergy Severe ANAPHYLACTIC Verified 10/21/17 14:18 SHOCK gadobenic acid Allergy Severe ANAPHYLACTIC Verified 10/21/17 14:18 SHOCK gadodiamide Allergy Severe ANAPHYLACTIC Verified 10/21/17 14:18 SHOCK gadoteridol Allergy Severe ANAPHYLACTIC Verified 10/21/17 14:18 SHOCK iodine Allergy Severe anaphylaxis Verified 10/21/17 14:18 iodixanol Allergy Severe ANAPHYLACTIC Verified 10/21/17 14:18 SHOCK iohexol Allergy Severe ANAPHYLACTIC Verified 10/21/17 14:18 SHOCK potassium iodide Allergy Severe anaphylaxis Verified 10/21/17 14:18 povidone-iodine Allergy Severe anaphylaxis Verified 10/21/17 14:18 sodium iodide Allergy Severe anaphylaxis Verified 10/21/17 14:18 sodium iodide Allergy Severe anaphylaxis Verified 10/21/17 14:18 triazolam Allergy Severe CRAZY Verified 10/21/17 14:18 shellfish derived Allergy Unknown Anaphylaxis Verified 10/21/17 14:18 Home Medications Medication Instructions Recorded Confirmed Type Coreg 10/21/17 History Keppra 10/21/17 History Lipitor 10/21/17 History Neurontin 10/21/17 History cyclobenzaprine 10/21/17 History Exam Vital signs: Vital Signs 10/21/17 13:54 10/21/17 18:04 10/21/17 19:28 Temperature 99.0 F 101.4 F H Pulse Rate 79 104 H 96 H Respiratory Rate 20 15 17 Blood Pressure 110/59 L 107/84 118/56 L Pulse Oximetry 97 100 96 Intake & Output 10/21/17 10/21/17 10/22/17 06:59 18:59 06:59 Intake Total 1050 / 1050 Balance 1050 / 1050 Weight 86.183 kg Intake: IV 1050 / 1050 Zosyn 3.375 GM Premix 50 ML @ 50 / 50 100 mls/hr IV.SIG ONCE ONE Rx#: [id number] NS Inj 1,000 ML @ Wide Open IV. 1000 / 1000 SIG BOLUS ONE Rx#:[id number] Narrative: PE: GENERAL: Middle-aged white male in no acute distress, disheveled, poor hygiene. HEENT: PERRLA, EOMI. No scleral icterus or conjunctival pallor. No lid lag or facial droop. CARDIOVASCULAR: Regular rate and rhythm. No obvious murmurs to auscultation. No chest tenderness to palpation. RESPIRATORY: No obvious rhonchi or wheezing. Clear to auscultation. Breath sounds equal bilaterally. GASTROINTESTINAL: Abdomen soft, non-tender, nondistended. BS normal. MUSCULOSKELETAL: Extremities without clubbing, cyanosis, or edema. No obvious deformities. Bilateral lower extremity erythema and mild edema, LLE lesion, RLE lesion and RUE forearm lesion. Pulses intact. NEUROLOGICAL: Awake, alert and oriented x4. No focal neurologic deficits. Moving both upper and lower extremities spontaneously. Results - Labs CBC & Chem 7: 10/21/17 14:15 10/21/17 14:15 Labs: Short CBC 10/21/17 Range/Units 14:15 WBC 17.6 H (4.0-11.0) th/mm3 Hgb 14.6 (13.0-17.0) gm/dL Hct 42.5 (39.0-51.0) % Plt Count 179 (150-450) th/mm3 BMP 10/21/17 14:15 Sodium 138 Potassium 3.2 L Chloride 102 Carbon Dioxide 21.1 BUN 6 L Creatinine 0.96 Calcium 8.2 L Cardiac Enzymes 10/21/17 Range/Units 14:15 Total Creatine Kinase 44 (39-308) U/L Liver Function 10/21/17 Range/Units 14:15 Total Bilirubin 0.7 (0.2-1.0) mg/dL AST 15 (15-37) U/L ALT 18 (12-78) U/L Alkaline Phosphatase 60 (45-117) U/L Albumin 3.2 L (3.4-5.0) g/dL Urine 10/21/17 Range/Units 14:30 Urine Color Yellow (Yellw/Straw) Urine Clarity Clear (Clear) Urine pH 6.0 (5.0-8.5) Ur Specific [place] 1.008 (1.002-1.035) Urine Protein Negative (Neg-Trace) mg/dL Urine Glucose (UA) Negative (Negative) mg/dL - Imaging Impressions Chest X-Ray 10/21/17 14:04 CONCLUSION: No acute abnormality seen. Venous Doppler Study 10/21/17 14:04 CONCLUSION: No DVT. Caprini VTE Risk Assessment Caprini VTE Risk Assessment: No/Low Risk (score <= 1) Caprini Risk Assessment Model: Point Value = 1 Point Value = 2 Point Value = 3 Point Value = 5 Age 41-60 Minor surgery BMI > 25 kg/m2 Swollen legs Varicose veins or History of unexplained or recurrent spontaneous Oral contraceptives or hormone replacement Sepsis (< 1 month) Serious lung disease, including pneumonia (< 1 month) Abnormal pulmonary function Acute myocardial infarction Congestive heart failure (< 1 month) History of inflammatory bowel disease Medical patient at bed rest Age 61-74 Arthroscopic surgery Major open surgery (> 45 min) Laparoscopic surgery (> 45 min) Malignancy Confined to bed (> 72 hours) Immobilizing plaster cast Central venous access Age >= 75 History of VTE Family history of VTE Factor V Leiden Prothrombin [id number] Lupus anticoagulant Anticardiolipin antibodies Elevated serum homocysteine Heparin-induced thrombocytopenia Other congenital or acquired thrombophilia Stroke (< 1 month) Elective arthroplasty Hip, pelvis, or leg fracture Acute spinal cord injury (< 1 month) Prophylaxis Regimen: Total Risk Factor Score Risk Level Prophylaxis Regimen 0-1 Low Early ambulation 2 Moderate Order ONE of the following: *Sequential Compression Device (SCD) *Heparin 5000 units SQ BID 3-4 Higher Order ONE of the following medications: *Heparin 5000 units SQ TID *Enoxaparin/Lovenox 40 mg SQ daily (WT < 150 kg, CrCl > 30 mL/min) *Enoxaparin/Lovenox 30 mg SQ daily (WT < 150 kg, CrCl > 10-29 mL/min) *Enoxaparin/Lovenox 30 mg SQ BID (WT < 150 kg, CrCl > 30 mL/min) AND/OR *Sequential Compression Device (SCD) 5 or more Highest Order ONE of the following medications: *Heparin 5000 units SQ TID (Preferred with Epidurals) *Enoxaparin/Lovenox 40 mg SQ daily (WT < 150 kg, CrCl > 30 mL/min) *Enoxaparin/Lovenox 30 mg SQ daily (WT < 150 kg, CrCl > 10-29 mL/min) *Enoxaparin/Lovenox 30 mg SQ BID (WT < 150 kg, CrCl > 30 mL/min) AND *Sequential Compression Device (SCD) Assessment and Plan - Assessment (1) Sepsis Code(s): A41.9 - Sepsis, unspecified organism Status: Acute (2) Cellulitis Code(s): L03.90 - Cellulitis, unspecified Status: Acute (3) Seizure disorder Code(s): G40.909 - Epilepsy, unspecified, not intractable, without status epilepticus Status: Acute - Plan A/P: 1. Sepsis: Temp 101.4, HR 104, WBC 17.6, Source-Cellulitis. Follow up blood cultures, continue IV Abx, IVF for hydration. 2. Cellulitis: Bilateral LE, one lesion on RUE forearm, continue w/ IV Vanc/ Cefepime, IVF, repeat labs in am, telemetry, monitor vitals. 3. Seizure Disorder: reported h/o Seizures, on Keppra, will resume, Seizure Precautions as needed. 4. DVT Prophylaxis: Mechanical contraindication due to cellulitis/wounds 5. Social work for d/c planning as needed. 6. Case discussed w/ ER physician at length, labs/records/imaging reviewed by me. (1) Sepsis Qualifiers: Sepsis type: sepsis due to unspecified organism Qualified Code(s): A41.9 - Sepsis, unspecified organism (2) Cellulitis Qualifiers: Site of cellulitis: extremity Site of cellulitis of extremity: lower extremity Laterality: left Qualified Code(s): L03.116 - Cellulitis of left lower limb
[2017-10-22] MEDS: Senna/Docusate Sodium 8.6/50 MG Tablet PO SCH ×3 (00:16→20:04)
[2017-10-22] MEDS: levETIRAcetam 500 MG Tablet PO SCH ×3 (00:16→20:02)
[2017-10-22] MEDS: Sod Chloride 0.9% Inj 1,000 ML IV.CONT SCH ×3 (00:18→15:27)
[2017-10-22] MEDS ORDERED: Vancomycin Inj 1,250 MG in Sodium Chlor 0.9% Inj 250 ML IV.SIG ONE ×2 (06:00→09:00)
[2017-10-22] MEDS ORDERED: Vancomycin Consult Pharmacy 1 EACH OTHER SCH (06:00)
[2017-10-22 17:49] LABS: Baso % (Auto) 0.3 % (0.0-2.0); Eos # (Auto) 0.1 th/mm3 (0.0-0.4); Eos % (Auto) 0.7 % (0.0-4.0); Hemoglobin 13.1 gm/dL (13.0-17.0); Lymph # (Auto) 1.1 th/mm3 (1.0-4.8); Mean Corpuscular HGB Conc 33.7 % (32.0-36.0); Mean Corpuscular Hemoglobin 35.8 pg (27.0-34.0); Mean Corpuscular Volume 106.5 fL (80.0-100.0); Mean Platelet Volume 8.3 fL (7.0-11.0); Mono # (Auto) 1.7 th/mm3 (0.0-0.9); Mono % (Auto) 11.9 % (0.0-8.0); Neut # (Auto) 11.2 th/mm3 (1.8-7.7); Neut % (Auto) 79.1 % (16.0-70.0); Platelet Count 158 th/mm3 (150-450); Red Blood Count 3.66 mil/mm3 (4.50-5.90); Red Cell Distribution Width 14.5 % (11.6-17.2); White Blood Count 14.2 th/mm3 (4.0-11.0)
--- NOTE | 2017-10-22 17:56 | ECG ---
Date Performed: 10/21/2017 Time Performed: 14:29:10 PTAGE: 62 years EKG: Sinus rhythm ST DEVIATION AND MODERATE T-WAVE ABNORMALITY, CONSIDER ANTEROLATERAL ISCHEMIA ST DEVIATION AND MODER ATE T-WAVE ABNORMALITY, CONSIDER INFERIOR ISCHEMIA ABNORMAL ECG PREVIOUS TRACING : 03/18/2017 13.08 Since the previous tracing, no significant change noted DOCTOR: Jt Rhodes Interpretating Date/Time 10/22/2017 17:54:57
[2017-10-22 18:22] LABS: Alanine Aminotransferase 12 U/L (12-78); Albumin 2.4 g/dL (3.4-5.0); Alkaline Phosphatase 63 U/L (45-117); Anion Gap 9 meq/L (5-15); Aspartate Aminotransferase 10 U/L (15-37); Blood Urea Nitrogen 12 mg/dL (7-18); Calcium 8.1 mg/dL (8.5-10.1); Carbon Dioxide 23.9 meq/L (21.0-32.0); Chloride 107 meq/L (98-107); Glomerular Filtration Rate 85 mL/min (>89); Glucose,Random 90 mg/dL (74-106); Potassium 3.8 meq/L (3.5-5.1); Sodium 140 meq/L (136-145); Total Protein 5.8 g/dL (6.4-8.2)
[2017-10-22] MEDS: Zolpidem Tartrate 5 MG Tablet PO PRN (20:03)
[2017-10-22] MEDS: Morphine Inj 4 MG/ML Vial IV.PUSH PRN (20:05)
[2017-10-22] MEDS ORDERED: Vancomycin Inj 1,250 MG in Sodium Chlor 0.9% Inj 250 ML IV.SIG SCH (21:00)
[2017-10-23] MEDS: Sod Chloride 0.9% Inj 1,000 ML IV.CONT SCH ×3 (03:39→23:04)
[2017-10-23] MEDS: Morphine Inj 4 MG/ML Vial IV.PUSH PRN ×2 (06:34→18:52)
[2017-10-23] MEDS ORDERED: Pharmacy Ordered Lab Info OTHER ONE (08:45)
[2017-10-23] MEDS: levETIRAcetam 500 MG Tablet PO SCH ×2 (10:00→21:52)
[2017-10-23] MEDS: Senna/Docusate Sodium 8.6/50 MG Tablet PO SCH ×2 (10:01→21:52)
[2017-10-23] MEDS: Vancomycin Inj 1,500 MG in Sodium Chlor 0.9% Inj 500 ML IV.SIG SCH (12:59)
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
--- NOTE | 2017-10-23 20:30 | P.PNIM ---
Subjective Interval history: The patient is seen in his room. He is complaining of severe, throbbing and aching right lower leg pain. The right leg does demonstrate significant erythema, warmth, and edema. He is also complaining of feeling like he is getting weak because he cannot ambulate enough. Pain is worse with palpation and ambulation and not alleviated with analgesic medications provided. Physical Exam Vital signs: Vital Signs 10/23/17 00:00 10/23/17 04:00 10/23/17 08:31 Temperature 98.5 F 97.9 F 98 F Pulse Rate 81 70 83 Respiratory Rate 18 18 16 Blood Pressure 131/71 129/63 146/84 H Pulse Oximetry 96 95 95 10/23/17 11:08 10/23/17 12:00 10/23/17 15:00 Temperature 98.0 F Pulse Rate 67 77 66 Respiratory Rate 16 Blood Pressure 135/88 Pulse Oximetry 93 L 10/23/17 16:43 Temperature 98 F Pulse Rate 68 Respiratory Rate 18 Blood Pressure 128/80 Pulse Oximetry 98 Intake & Output 10/23/17 10/23/17 10/24/17 06:59 18:59 06:59 Intake Total 1350 / 1350 Output Total 1150 / 1150 350 / 350 Balance 200 / 200 -350 / -350 Weight 94.1 kg Intake: IV 1350 / 1350 NS Inj 1,000 ML @ 100 mls/hr IV 1000 / 1000 .CONT .Q10H [facility] Rx#:[id number] Maxipime Inj 1,000 MG In NS Inj 100 / 100 100 ML @ 200 mls/hr IV.SIG Q12H [facility] Rx#:[id number] Vancomycin Inj 1,250 MG In NS 250 / 250 Inj 250 ML @ 250 mls/hr IV.SIG Q12H [facility] Rx#:[id number] Output: Urine 1150 / 1150 350 / 350 Other: # Voids 1 - Constitutional mild distress (painful), average body habitus, thin, disheveled, cooperative - Routine Respiratory Exam Present: CTA bilaterally. Absent: wheezes, crackles - Routine Cardiovascular Exam Present: RRR, S1, S2. Absent: murmur, gallop, rubs - Routine Abdominal Exam Present: soft, normoactive bowel sounds. Absent: tenderness - Routine Extremities Exam Present: edema (RLE), pulses intact, calf tenderness (RLE), Yusra's sign (RLE) - Routine Skin Exam Present: warm (RLE with increased warmth), lesions (Right forearm; wound on both RLE and LLE - dry and scabbed) - Routine Neurological Exam Present: alert, oriented X3, sensory deficit (legally blind) - Routine Psychiatric Exam Present: cooperative, anxious Results - Labs CBC & Chem 7: 10/22/17 17:15 10/22/17 17:15 Laboratory Results - last 24 hr 10/23/17 10:30 Vancomycin Trough 11.7 H Microbiology 10/21/17 17:15 Blood - Peripheral Aerobic Blood Culture - Preliminary No growth in 2 days 10/21/17 17:15 Blood - Peripheral Anaerobic Blood Culture - Preliminary No growth in 2 days 10/21/17 17:10 Blood - Peripheral Aerobic Blood Culture - Preliminary No growth in 2 days 10/21/17 17:10 Blood - Peripheral Anaerobic Blood Culture - Preliminary No growth in 2 days Assessment and Plan - Plan Mr. Small is a 62-year-old Homeless male with a history of Seizure Disorder, Legally Blindness and CVA who presented to ER 10/21/17 with complaints of bilateral lower extremity redness and swelling x5 days; believes he was bitten by a spider. He was admitted to [facility] for further evaluation and management of sepsis from cellulitis. Plan: 1. Sepsis: - Afebrile, HR 104, WBC 17.6 on admit and 14.2 on repeat late yesterday - Source - Cellulitis BLE - left leg looks like it has improved but there is concern for DVT in RLE - we will rule out with doppler u/s. - Follow up blood cultures have been negative for growth thus far - Continue IV antibiotics, IVF for hydration. 2. Cellulitis: Bilateral LE, one lesion on RUE forearm - continue with IV Vanc/Cefepime - continue IVF - repeat labs in am - continue telemetry - continue to monitor vitals. 3. Seizure Disorder: reported history of Seizures - continue on Keppra - Seizure Precautions as needed. 4. History of adjustment disorder with disturbance of emotion; polysubstance abuse, manipulative behavior - patient was expressing concern of becoming suicidal and homicidal last night with no active intent - psychiatry was consulted, appreciate Dr. Jaramillo's recommendations - Risperdal and Zoloft were restarted 5. DVT Prophylaxis: - Mechanical contraindication due to cellulitis/wounds - awaiting results of LE doppler 6. Case management consult placed for assistance with discharge planning. 7. PT consulted to assist - patient expresses concern he is becoming debiliated Discussed Condition With: Case discussed with Dr. West.
[2017-10-23] MEDS: Zolpidem Tartrate 5 MG Tablet PO PRN (21:52)
[2017-10-23] MEDS: Sertraline 100 MG Tablet PO SCH (21:52)
[2017-10-24] MEDS ORDERED: Enoxaparin Inj 100 MG/ML Syringe SQ ONE (00:14)
[2017-10-24] MEDS: Vancomycin Inj 1,500 MG in Sodium Chlor 0.9% Inj 500 ML IV.SIG SCH ×2 (01:22→12:10)
[2017-10-24] MEDS: Morphine Inj 4 MG/ML Vial IV.PUSH PRN (04:17)
[2017-10-24] MEDS: clonazePAM 0.5 MG Tablet PO PRN ×2 (06:26→20:49)
[2017-10-24 08:23] LABS: Baso % (Auto) 0.5 % (0.0-2.0); Eos # (Auto) 0.1 th/mm3 (0.0-0.4); Eos % (Auto) 1.7 % (0.0-4.0); Hematocrit 35.8 % (39.0-51.0); Hemoglobin 12.1 gm/dL (13.0-17.0); Lymph # (Auto) 1.1 th/mm3 (1.0-4.8); Lymph % (Auto) 18.6 % (9.0-44.0); Mean Corpuscular HGB Conc 33.9 % (32.0-36.0); Mean Corpuscular Hemoglobin 35.7 pg (27.0-34.0); Mean Corpuscular Volume 105.5 fL (80.0-100.0); Mean Platelet Volume 8.3 fL (7.0-11.0); Mono # (Auto) 0.9 th/mm3 (0.0-0.9); Mono % (Auto) 14.3 % (0.0-8.0); Neut % (Auto) 64.9 % (16.0-70.0); Platelet Count 154 th/mm3 (150-450); Red Blood Count 3.39 mil/mm3 (4.50-5.90); Red Cell Distribution Width 14.3 % (11.6-17.2); White Blood Count 6.1 th/mm3 (4.0-11.0)
[2017-10-24 08:44] LABS: Albumin 2.2 g/dL (3.4-5.0); Anion Gap 8 meq/L (5-15); Aspartate Aminotransferase 8 U/L (15-37); Blood Urea Nitrogen 5 mg/dL (7-18); Calcium 8.5 mg/dL (8.5-10.1); Carbon Dioxide 24.7 meq/L (21.0-32.0); Chloride 109 meq/L (98-107); Glomerular Filtration Rate Greater Than 89 mL/min (>89); Glucose,Random 90 mg/dL (74-106); Potassium 3.9 meq/L (3.5-5.1); Sodium 142 meq/L (136-145)
[2017-10-24 08:46] LABS: Alanine Aminotransferase 11 U/L (12-78)
[2017-10-24 08:48] LABS: Alkaline Phosphatase 45 U/L (45-117); Total Protein 5.5 g/dL (6.4-8.2)
[2017-10-24] MEDS: Sod Chloride 0.9% Inj 1,000 ML IV.CONT SCH ×2 (09:32→18:23)
[2017-10-24] MEDS: Sertraline 100 MG Tablet PO SCH ×2 (09:35→20:37)
[2017-10-24] MEDS: Senna/Docusate Sodium 8.6/50 MG Tablet PO SCH ×2 (09:36→20:37)
[2017-10-24] MEDS: levETIRAcetam 500 MG Tablet PO SCH ×2 (09:36→20:37)
--- NOTE | 2017-10-24 11:31 | P.PN ---
Subjective Interval history: RN denies deterioration since last night. Patient himself is requesting for his ears to be irrigated. Says his left leg swelling is much improved but his right leg swelling is still a problem. Physical Exam Vital signs: Vital Signs 10/23/17 12:00 10/23/17 15:00 10/23/17 16:43 Temperature 98.0 F 98 F Pulse Rate 77 66 68 Respiratory Rate 16 18 Blood Pressure 135/88 128/80 Pulse Oximetry 93 L 98 10/23/17 20:00 10/23/17 20:18 10/23/17 23:47 Temperature 97.6 F Pulse Rate 80 76 66 Respiratory Rate 18 Blood Pressure 160/100 H Pulse Oximetry 98 10/24/17 00:00 10/24/17 04:00 10/24/17 06:12 Temperature 97.7 F Pulse Rate 71 67 75 Respiratory Rate 18 18 Blood Pressure 115/64 126/70 Pulse Oximetry 93 L 94 L 10/24/17 09:00 Temperature 97.9 F Pulse Rate 70 Respiratory Rate 18 Blood Pressure 126/73 Pulse Oximetry 96 Intake & Output 10/23/17 10/24/17 10/24/17 18:59 06:59 18:59 Intake Total 1615 / 1615 1335 / 1335 Output Total 350 / 350 1600 / 1600 Balance 1265 / 1265 -265 / -265 Weight 92.4 kg Intake: IV 1615 / 1615 615 / 615 NS Inj 1,000 ML @ 100 mls/hr IV 1000 / 1000 .CONT .Q10H [facility] Rx#:[id number] Maxipime Inj 1,000 MG In NS Inj 100 / 100 100 / 100 100 ML @ 200 mls/hr IV.SIG Q12H [facility] Rx#:[id number] Vancomycin Inj 1,500 MG In NS 515 / 515 515 / 515 Inj 500 ML @ 250 mls/hr IV.SIG Q12H [facility] Rx#:[id number] Oral 720 / 720 Output: Urine 350 / 350 1600 / 1600 Other: # Voids 3 Date of Last Bowel Movement 10/23/17 Narrative: Diffuse calf and phipps edema on the right leg which is mild to moderately erythematous diffusely, right ankle and foot on the other hand. Normal in color and size. Right lower leg is tender to palpation diffusely to mild to moderate extent; unlabored breathing Left lower extremity appears almost normal in size and color with very minimal scattered redness Results - Labs CBC & Chem 7: 10/24/17 07:47 10/24/17 07:47 Laboratory Results - last 24 hr 10/24/17 10/24/17 07:47 07:47 WBC 6.1 RBC 3.39 L Hgb 12.1 L Hct 35.8 L MCV 105.5 H MCH 35.7 H MCHC 33.9 RDW 14.3 Plt Count 154 MPV 8.3 Neut % (Auto) 64.9 Lymph % (Auto) 18.6 [place] % (Auto) 14.3 H Eos % (Auto) 1.7 Baso % (Auto) 0.5 Neut # (Auto) 4.0 Lymph # (Auto) 1.1 [place] # (Auto) 0.9 Eos # (Auto) 0.1 Baso # (Auto) 0.0 WBC Differential . Differential Comment Auto diff final Sodium 142 Potassium 3.9 Chloride 109 H Carbon Dioxide 24.7 Anion Gap 8 BUN 5 L Creatinine 0.72 Estimated GFR Greater than 89 Random Glucose 90 Calcium 8.5 Total Bilirubin 0.3 AST 8 L ALT 11 L Alkaline Phosphatase 45 Total Protein 5.5 L Albumin 2.2 L Microbiology 10/21/17 17:15 Blood - Peripheral Aerobic Blood Culture - Preliminary No growth in 3 days 10/21/17 17:15 Blood - Peripheral Anaerobic Blood Culture - Preliminary No growth in 3 days 10/21/17 17:10 Blood - Peripheral Aerobic Blood Culture - Preliminary No growth in 3 days 10/21/17 17:10 Blood - Peripheral Anaerobic Blood Culture - Preliminary No growth in 3 days Assessment and Plan - Assessment (1) Sepsis Code(s): A41.9 - Sepsis, unspecified organism Status: Acute (2) Cellulitis Code(s): L03.90 - Cellulitis, unspecified Status: Acute (3) Seizure disorder Code(s): G40.909 - Epilepsy, unspecified, not intractable, without status epilepticus Status: Acute - Plan Sepsis -Blood cultures are negative, was likely secondary to cellulitis, see treatment below Cellulitis Continue cefepime and vancomycin, clinically improving except for right leg, awaiting ultrasound to see if DVT is playing role, if neg and no improvement by addie, ID consultation. ordering erythematous markings Right lower extremity edema -Awaiting Doppler ultrasound right leg, left lower extremity is negative Will order mineral oil patient's earwax mood d/o - risperdol and zoloft per psych seizure d/o - continue keppra lovenox (1) Sepsis Qualifiers: Sepsis type: sepsis due to unspecified organism Qualified Code(s): A41.9 - Sepsis, unspecified organism (2) Cellulitis Qualifiers: Site of cellulitis: extremity Site of cellulitis of extremity: lower extremity Laterality: left Qualified Code(s): L03.116 - Cellulitis of left lower limb
--- NOTE | 2017-10-24 12:05 | US ---
EXAM DATE: 10/24/2017 11:42 AM EDT AGE/SEX: 62 years / Male INDICATIONS: Right leg redness, swelling, and pain. CLINICAL DATA: This is the patient's initial encounter. Patient reports that signs and symptoms have been present for 1 week and indicates a pain score of 7/10. MEDICAL/SURGICAL HISTORY: Stroke. Head injuries. SD. Macular degeneration. Seizure. . Arm surg jodi. Rotator cuff repair. COMPARISON: [facility] [place], US LEG BILATERAL VENOUS DOPPLER, 11/01/2016. [facility] [place], US LEG BILATERAL VENOUS DOPPL ER, 01/16/2016. . TECHNIQUE: Venous ultrasound of both lower extremities was performed from the inguinal ligament to t he proximal calf. Real-time, color Doppler and spectral tracing, compression and augmentation techni ques were used. FINDINGS: Normal compression of the deep venous system from the inguinal region to the proximal calf . No echogenic clot is seen. Normal response of the venous system to augmentation and respiration. CONCLUSION: 1. The study is negative for lower extremity deep venous thrombosis. Electronically signed by: Marimar Andino MD 10/24/2017 12:04 PM EDT
[2017-10-25] MEDS: Vancomycin Inj 1,500 MG in Sodium Chlor 0.9% Inj 500 ML IV.SIG SCH ×2 (00:53→12:36)
[2017-10-25] MEDS: Sod Chloride 0.9% Inj 1,000 ML IV.CONT SCH ×2 (03:59→12:38)
[2017-10-25] MEDS: Sertraline 100 MG Tablet PO SCH ×2 (07:59→21:09)
[2017-10-25] MEDS: levETIRAcetam 500 MG Tablet PO SCH ×2 (08:00→21:09)
[2017-10-25] MEDS: Senna/Docusate Sodium 8.6/50 MG Tablet PO SCH ×2 (08:00→21:08)
[2017-10-25] MEDS: clonazePAM 0.5 MG Tablet PO PRN ×2 (08:39→18:31)
[2017-10-25] MEDS ORDERED: Carbamide Peroxide 6.5% Otic Drops 15 ML Bottle EACH EAR ONE (09:17)
--- NOTE | 2017-10-25 09:44 | P.PN ---
Subjective Interval history: Follow-up visit bilateral lower extremity cellulitis. Patient seen and examined today. Reports he is doing better. States that he still has chills but no fevers. States that bilateral lower extremity is improving left more than the right. Patient is very thankful of the care that he has gotten. Denies pain and discomfort. Denies SOB/ dyspnea. Denies chest pain, palpitations, headaches, dizziness. Denies fevers, n/v/d. Denies dysuria. Physical Exam Vital signs: Vital Signs 10/24/17 13:08 10/24/17 13:15 10/24/17 16:22 Temperature 97.9 F 97.9 F Pulse Rate 70 60 80 Respiratory Rate 18 16 Blood Pressure 120/70 144/78 H Pulse Oximetry 98 96 10/24/17 20:00 10/24/17 21:00 10/25/17 00:00 Temperature 97.8 F 97.9 F Pulse Rate 67 62 Respiratory Rate 18 18 Blood Pressure 166/114 H 139/81 Pulse Oximetry 97 93 L 10/25/17 04:00 10/25/17 04:25 10/25/17 08:00 Temperature 98.6 F 98.1 F Pulse Rate 78 75 78 Respiratory Rate 18 20 Blood Pressure 134/66 129/75 Pulse Oximetry 95 96 10/25/17 08:43 Temperature Pulse Rate 64 Respiratory Rate Blood Pressure Pulse Oximetry Intake & Output 10/24/17 10/25/17 10/25/17 18:59 06:59 18:59 Intake Total 1615 / 1615 600 / 600 Output Total 800 / 800 Balance 815 / 815 600 / 600 Weight 92.4 kg Intake: IV 1615 / 1615 600 / 600 NS Inj 1,000 ML @ 100 mls/hr IV 1000 / 1000 .CONT .Q10H [facility] Rx#:[id number] Maxipime Inj 1,000 MG In NS Inj 100 / 100 100 / 100 100 ML @ 200 mls/hr IV.SIG Q12H [facility] Rx#:[id number] Vancomycin Inj 1,500 MG In NS 515 / 515 500 / 500 Inj 500 ML @ 250 mls/hr IV.SIG Q12H [facility] Rx#:[id number] Output: Urine 800 / 800 Other: Date of Last Bowel Movement 10/23/17 Narrative: GENERAL: This is a well-nourished, well-developed patient, in no apparent distress. SKIN: Warm and dry. Bilateral lower extremity erythema, edema noted right more than the left. Open wounds to the left lower extremity clean, dry. Open wounds to right lower extremity clean, dry. HEENT: Normocephalic. Pupils equal round and reactive. Nose without bleeding. Airway patent. NECK: Trachea midline. No JVD. Supple. CARDIOVASCULAR: Regular rate and rhythm without murmurs, gallops, or rubs. RESPIRATORY: Clear to auscultation. Breath sounds equal bilaterally. No wheezes , rales, or rhonchi. GASTROINTESTINAL: Abdomen soft, non-tender, nondistended. Bowel Sounds normoactive x4. MUSCULOSKELETAL: Extremities without clubbing, cyanosis. Bilateral lower extremity +1 edema, right greater than the left. Right upper extremity possible IV infiltrate edema, erythema noted. Left upper extremity deformity, scar from previous surgery left shoulder all the way to arm NEUROLOGICAL: Awake and alert. Oriented to time, place, person. No focal neuro deficit. Moves all extremities. Normal speech. Results - Labs CBC & Chem 7: 10/24/17 07:47 10/24/17 07:47 Microbiology 10/21/17 17:15 Blood - Peripheral Aerobic Blood Culture - Preliminary No growth in 3 days 10/21/17 17:15 Blood - Peripheral Anaerobic Blood Culture - Preliminary No growth in 3 days 10/21/17 17:10 Blood - Peripheral Aerobic Blood Culture - Preliminary No growth in 3 days 10/21/17 17:10 Blood - Peripheral Anaerobic Blood Culture - Preliminary No growth in 3 days - Imaging Impressions Venous Doppler Study 10/24/17 00:00 CONCLUSION: 1. The study is negative for lower extremity deep venous thrombosis. Assessment and Plan - Assessment (1) Sepsis Code(s): A41.9 - Sepsis, unspecified organism Status: Acute (2) Cellulitis Code(s): L03.90 - Cellulitis, unspecified Status: Acute (3) Seizure disorder Code(s): G40.909 - Epilepsy, unspecified, not intractable, without status epilepticus Status: Acute - Plan This is a 62-year-old Homeless male with a PMH of Seizure Disorder, Legally Blind and CVA who presented to ER with complaints of bilateral lower extremity redness and swelling x5 days. Sepsis, secondary to bilateral lower extremity cellulitis -Leukocytosis resolving -Blood cultures no growth today -Continue cefepime and vancomycin, clinically improving slower on the right leg -DVT studies negative RUE phlebitis -Elevation, warm compresses Mood d/o -Risperdal and Zoloft per psych -Calm and cooperative Seizure d/o -continue Keppra -Seizure precaution DVT prop Lovenox Code Status: Full Code Discussed Condition With: Patient, nursing Discharge Planning: Plan to DC home when clinically improved (1) Sepsis Qualifiers: Sepsis type: sepsis due to unspecified organism Qualified Code(s): A41.9 - Sepsis, unspecified organism (2) Cellulitis Qualifiers: Site of cellulitis: extremity Site of cellulitis of extremity: lower extremity Laterality: left Qualified Code(s): L03.116 - Cellulitis of left lower limb
[2017-10-25] MEDS ORDERED: Pharmacy Ordered Lab Info OTHER ONE (11:45)
[2017-10-25] MEDS: Zolpidem Tartrate 5 MG Tablet PO PRN (21:14)
[2017-10-26 07:15] LABS: Baso % (Auto) 0.7 % (0.0-2.0); Eos # (Auto) 0.2 th/mm3 (0.0-0.4); Eos % (Auto) 2.9 % (0.0-4.0); Hemoglobin 12.2 gm/dL (13.0-17.0); Lymph # (Auto) 1.1 th/mm3 (1.0-4.8); Lymph % (Auto) 16.9 % (9.0-44.0); Mean Corpuscular HGB Conc 34.9 % (32.0-36.0); Mean Corpuscular Hemoglobin 36.3 pg (27.0-34.0); Mean Corpuscular Volume 104.1 fL (80.0-100.0); Mean Platelet Volume 8.4 fL (7.0-11.0); Mono # (Auto) 1.2 th/mm3 (0.0-0.9); Mono % (Auto) 17.7 % (0.0-8.0); Neut # (Auto) 4.2 th/mm3 (1.8-7.7); Neut % (Auto) 61.8 % (16.0-70.0); Platelet Count 176 th/mm3 (150-450); Red Blood Count 3.37 mil/mm3 (4.50-5.90); Red Cell Distribution Width 14.2 % (11.6-17.2); White Blood Count 6.8 th/mm3 (4.0-11.0)
[2017-10-26 07:52] LABS: Anion Gap 7 meq/L (5-15); Blood Urea Nitrogen 8 mg/dL (7-18); Calcium 8.3 mg/dL (8.5-10.1); Carbon Dioxide 28.8 meq/L (21.0-32.0); Chloride 107 meq/L (98-107); Glomerular Filtration Rate Greater Than 89 mL/min (>89); Glucose,Random 91 mg/dL (74-106); Potassium 3.8 meq/L (3.5-5.1); Sodium 143 meq/L (136-145)
[2017-10-26 07:55] LABS: Vancomycin,Random 12.7 Comment
[2017-10-26] MEDS: Sertraline 100 MG Tablet PO SCH ×2 (09:31→21:26)
[2017-10-26] MEDS: levETIRAcetam 500 MG Tablet PO SCH ×2 (09:32→21:26)
[2017-10-26] MEDS: Senna/Docusate Sodium 8.6/50 MG Tablet PO SCH ×2 (09:32→21:28)
[2017-10-26] MEDS: clonazePAM 0.5 MG Tablet PO PRN ×2 (09:41→17:29)
--- NOTE | 2017-10-26 10:12 | P.PN ---
Subjective Interval history: Follow-up for lower extremity cellulitis. Patient is currently doing well. He is ambulating some without any assistance. However he request PT to work with him. No fever or chills. Tolerating diet well. Physical Exam Vital signs: Vital Signs 10/25/17 12:00 10/25/17 13:26 10/25/17 16:00 Temperature 97.7 F 97.6 F Pulse Rate 75 76 74 Respiratory Rate 20 20 Blood Pressure 134/80 151/85 H Pulse Oximetry 100 97 10/25/17 16:53 10/25/17 21:00 10/26/17 00:00 Temperature 98.7 F 98.7 F Pulse Rate 76 71 67 Respiratory Rate 20 20 Blood Pressure 144/75 H 145/83 H Pulse Oximetry 96 97 10/26/17 04:00 10/26/17 09:25 Temperature 98.5 F 98.7 F Pulse Rate 78 71 Respiratory Rate 20 17 Blood Pressure 146/82 H 143/92 H Pulse Oximetry 96 93 L Intake & Output 10/25/17 10/26/17 10/26/17 18:59 06:59 18:59 Intake Total 940 / 940 60 / 60 Output Total 404 / 404 1125 / 1125 Balance 536 / 536 -1065 / -1065 Weight 92.4 kg 91.1 kg Intake: IV 100 / 100 0 / 0 Maxipime Inj 1,000 MG In NS Inj 100 / 100 0 / 0 100 ML @ 200 mls/hr IV.SIG Q12H [facility] Rx#:[id number] Oral 840 / 840 60 / 60 Output: Urine 403 / 403 1125 / 1125 Stool Other: # Voids 1 Date of Last Bowel Movement 10/25/17 Narrative: GENERAL: This is a well-nourished, well-developed patient, in no apparent distress. SKIN: Warm and dry. Bilateral lower extremity erythema, edema noted right more than the left. Open wounds to the left lower extremity clean, dry. Open wounds to right lower extremity clean, dry. HEENT: Normocephalic. Pupils equal round and reactive. Nose without bleeding. Airway patent. NECK: Trachea midline. No JVD. Supple. CARDIOVASCULAR: Regular rate and rhythm without murmurs, gallops, or rubs. RESPIRATORY: Clear to auscultation. Breath sounds equal bilaterally. No wheezes , rales, or rhonchi. GASTROINTESTINAL: Abdomen soft, non-tender, nondistended. Bowel Sounds normoactive x4. MUSCULOSKELETAL: Extremities without clubbing, cyanosis. Bilateral lower extremity +1 edema, right greater than the left. NEUROLOGICAL: Awake and alert. Oriented to time, place, person. No focal neuro deficit. Moves all extremities. Normal speech. Results - Labs CBC & Chem 7: 10/26/17 06:24 10/26/17 06:24 Laboratory Results - last 24 hr 10/25/17 10/26/17 10/26/17 11:30 06:24 06:24 WBC 6.8 RBC 3.37 L Hgb 12.2 L Hct 35.0 L MCV 104.1 H MCH 36.3 H MCHC 34.9 RDW 14.2 Plt Count 176 MPV 8.4 Neut % (Auto) 61.8 Lymph % (Auto) 16.9 [place] % (Auto) 17.7 H Eos % (Auto) 2.9 Baso % (Auto) 0.7 Neut # (Auto) 4.2 Lymph # (Auto) 1.1 [place] # (Auto) 1.2 H Eos # (Auto) 0.2 Baso # (Auto) 0.0 WBC Differential . Differential Comment Auto diff final Sodium 143 Potassium 3.8 Chloride 107 Carbon Dioxide 28.8 Anion Gap 7 BUN 8 Creatinine 0.86 Estimated GFR Greater than 89 Random Glucose 91 Calcium 8.3 L Vancomycin Trough 25.2 H Random Vancomycin 12.7 Microbiology 10/21/17 17:15 Blood - Peripheral Aerobic Blood Culture - Preliminary No growth in 4 days 10/21/17 17:15 Blood - Peripheral Anaerobic Blood Culture - Preliminary No growth in 4 days 10/21/17 17:10 Blood - Peripheral Aerobic Blood Culture - Preliminary No growth in 4 days 10/21/17 17:10 Blood - Peripheral Anaerobic Blood Culture - Preliminary No growth in 4 days - Imaging Chest X-Ray 10/21/17 14:04 CONCLUSION: No acute abnormality seen. Venous Doppler Study 10/21/17 14:04 CONCLUSION: No DVT. Venous Doppler Study 10/24/17 00:00 CONCLUSION: 1. The study is negative for lower extremity deep venous thrombosis. Assessment and Plan - Assessment (1) Sepsis Code(s): A41.9 - Sepsis, unspecified organism Status: Acute (2) Cellulitis Code(s): L03.90 - Cellulitis, unspecified Status: Acute (3) Seizure disorder Code(s): G40.909 - Epilepsy, unspecified, not intractable, without status epilepticus Status: Acute - Plan This is a 62-year-old Homeless male with a PMH of Seizure Disorder, Legally Blind and CVA who presented to ER with complaints of bilateral lower extremity redness and swelling x5 days. Sepsis, secondary to bilateral lower extremity cellulitis -Leukocytosis resolving -Blood cultures no growth today -Continue cefepime and vancomycin, clinically improving slower on the right leg -Will consider switching to Keflex and Bactrim or doxycycline. -DVT studies negative RUE phlebitis -Elevation, warm compresses Mood d/o -Risperdal and Zoloft per psych -Calm and cooperative Seizure d/o -continue Keppra -Seizure precaution Deconditioning - PT/OT consulted. Full code. Adrianagunnarx. (1) Sepsis Qualifiers: Sepsis type: sepsis due to unspecified organism Qualified Code(s): A41.9 - Sepsis, unspecified organism (2) Cellulitis Qualifiers: Site of cellulitis: extremity Site of cellulitis of extremity: lower extremity Laterality: left Qualified Code(s): L03.116 - Cellulitis of left lower limb
[2017-10-26] MEDS ORDERED: Vancomycin Inj 1,300 MG in Sodium Chlor 0.9% Inj 500 ML IV.SIG SCH (11:00)
[2017-10-26] MEDS: Enoxaparin Inj 40 MG/0.4 ML Syringe SQ SCH (12:04)
[2017-10-26] MEDS: Sod Chloride 0.9% Inj 1,000 ML IV.CONT SCH (19:34)
[2017-10-26] MEDS: Zolpidem Tartrate 5 MG Tablet PO PRN (21:26)
[2017-10-27] MEDS: Sod Chloride 0.9% Inj 1,000 ML IV.CONT SCH ×2 (04:18→16:54)
[2017-10-27] MEDS: Sertraline 100 MG Tablet PO SCH ×2 (09:25→21:51)
[2017-10-27] MEDS: levETIRAcetam 500 MG Tablet PO SCH ×2 (09:25→21:50)
[2017-10-27] MEDS: Senna/Docusate Sodium 8.6/50 MG Tablet PO SCH ×2 (09:26→21:50)
[2017-10-27] MEDS: Enoxaparin Inj 40 MG/0.4 ML Syringe SQ SCH (09:26)
--- NOTE | 2017-10-27 12:37 | P.PN ---
Subjective Interval history: Follow-up for lower extremity cellulitis. Patient is currently doing well. No fever or chills. Tolerating diet well. Physical Exam Vital signs: Vital Signs 10/26/17 13:02 10/26/17 17:03 10/26/17 20:00 Temperature 98.5 F 97.7 F 98.6 F Pulse Rate 67 67 71 Respiratory Rate 18 16 18 Blood Pressure 116/78 156/91 H 134/74 Pulse Oximetry 96 97 95 10/26/17 22:34 10/27/17 00:00 10/27/17 01:42 Temperature 98.3 F Pulse Rate 69 Respiratory Rate 20 18 18 Blood Pressure 145/85 H Pulse Oximetry 96 10/27/17 04:00 10/27/17 07:02 10/27/17 08:00 Temperature 98.2 F Pulse Rate 85 67 Respiratory Rate 18 20 Blood Pressure 142/86 H Pulse Oximetry 93 L 10/27/17 08:45 10/27/17 11:29 Temperature 98 F 98.6 F Pulse Rate 79 74 Respiratory Rate 18 18 Blood Pressure 151/90 H 104/61 Pulse Oximetry 95 94 L Intake & Output 10/26/17 10/27/17 10/27/17 18:59 06:59 18:59 Intake Total 1000 / 1000 Balance 1000 / 1000 Weight 90.7 kg Intake: IV 1000 / 1000 NS Inj 1,000 ML @ 100 mls/hr IV 1000 / 1000 .CONT .Q10H [facility] Rx#:[id number] Other: # Voids 4 Date of Last Bowel Movement 10/26/17 # Bowel Movements 1 Narrative: GENERAL: This is a well-nourished, well-developed patient, in no apparent distress. SKIN: Warm and dry. Bilateral lower extremity erythema, edema noted right more than the left. Open wounds to the left lower extremity clean, dry. Open wounds to right lower extremity clean, dry. HEENT: Normocephalic. Pupils equal round and reactive. Nose without bleeding. Airway patent. NECK: Trachea midline. No JVD. Supple. CARDIOVASCULAR: Regular rate and rhythm without murmurs, gallops, or rubs. RESPIRATORY: Clear to auscultation. Breath sounds equal bilaterally. No wheezes , rales, or rhonchi. GASTROINTESTINAL: Abdomen soft, non-tender, nondistended. Bowel Sounds normoactive x4. MUSCULOSKELETAL: Extremities without clubbing, cyanosis. Bilateral lower extremity +1 edema, right greater than the left. NEUROLOGICAL: Awake and alert. Oriented to time, place, person. No focal neuro deficit. Moves all extremities. Normal speech. Results - Labs CBC & Chem 7: 10/26/17 06:24 10/26/17 06:24 Microbiology 10/21/17 17:15 Blood - Peripheral Aerobic Blood Culture - Final No growth in 5 days 10/21/17 17:15 Blood - Peripheral Anaerobic Blood Culture - Final No growth in 5 days 10/21/17 17:10 Blood - Peripheral Aerobic Blood Culture - Final No growth in 5 days 10/21/17 17:10 Blood - Peripheral Anaerobic Blood Culture - Final No growth in 5 days Assessment and Plan - Assessment (1) Sepsis Code(s): A41.9 - Sepsis, unspecified organism Status: Acute (2) Cellulitis Code(s): L03.90 - Cellulitis, unspecified Status: Acute (3) Seizure disorder Code(s): G40.909 - Epilepsy, unspecified, not intractable, without status epilepticus Status: Acute - Plan This is a 62-year-old Homeless male with a PMH of Seizure Disorder, Legally Blind and CVA who presented to ER with complaints of bilateral lower extremity redness and swelling x5 days. Sepsis, secondary to bilateral lower extremity cellulitis -Leukocytosis resolving -Blood cultures no growth today -Continue Keflex and Bactrim or doxycycline. -DVT studies negative RUE phlebitis -Elevation, warm compresses Mood d/o -Risperdal and Zoloft per psych -Calm and cooperative Seizure d/o -continue Keppra -Seizure precaution Deconditioning - PT/OT consulted. CM is working on SNF placement. Full code. Lovenox. (1) Sepsis Qualifiers: Sepsis type: sepsis due to unspecified organism Qualified Code(s): A41.9 - Sepsis, unspecified organism (2) Cellulitis Qualifiers: Site of cellulitis: extremity Site of cellulitis of extremity: lower extremity Laterality: left Qualified Code(s): L03.116 - Cellulitis of left lower limb
[2017-10-27] MEDS: clonazePAM 0.5 MG Tablet PO PRN (18:33)
[2017-10-27] MEDS: Zolpidem Tartrate 5 MG Tablet PO PRN (21:50)
[2017-10-27] MEDS ORDERED: Pharmacy Ordered Lab Info OTHER ONE (22:45)
[2017-10-28] MEDS: Sod Chloride 0.9% Inj 1,000 ML IV.CONT SCH ×3 (01:47→21:38)
[2017-10-28] MEDS: Sertraline 100 MG Tablet PO SCH ×2 (08:25→21:38)
[2017-10-28] MEDS: levETIRAcetam 500 MG Tablet PO SCH ×2 (08:25→21:35)
[2017-10-28] MEDS: Enoxaparin Inj 40 MG/0.4 ML Syringe SQ SCH (08:25)
[2017-10-28] MEDS: Senna/Docusate Sodium 8.6/50 MG Tablet PO SCH ×2 (08:25→21:38)
--- NOTE | 2017-10-28 14:18 | P.PN ---
Subjective Interval history: Follow-up for lower extremity cellulitis. Patient is doing well. No fever, chills. However, he feels somewhat fatigued. Physical Exam Vital signs: Vital Signs 10/27/17 16:39 10/27/17 20:00 10/27/17 23:15 Temperature 98.8 F 98.3 F Pulse Rate 70 75 Respiratory Rate 16 18 18 Blood Pressure 149/79 H 107/66 Pulse Oximetry 98 96 10/28/17 00:00 10/28/17 04:00 10/28/17 07:30 Temperature 98.1 F Pulse Rate 59 L 60 Respiratory Rate 18 16 Blood Pressure 133/76 Pulse Oximetry 94 L 10/28/17 08:00 10/28/17 10:53 10/28/17 13:35 Temperature 98.7 F Pulse Rate 75 83 63 Respiratory Rate 19 Blood Pressure 102/51 L Pulse Oximetry 10/28/17 13:38 Temperature Pulse Rate 105 H Respiratory Rate Blood Pressure Pulse Oximetry Intake & Output 10/27/17 10/28/17 10/28/17 18:59 06:59 18:59 Intake Total 710 / 710 263 / 263 Balance 710 / 710 263 / 263 Intake: IV 350 / 350 263 / 263 Oral 360 / 360 Other: # Voids 3 Date of Last Bowel Movement 10/26/17 10/27/17 Results - Labs CBC & Chem 7: 10/26/17 06:24 10/26/17 06:24 Assessment and Plan - Assessment (1) Sepsis Code(s): A41.9 - Sepsis, unspecified organism Status: Acute (2) Cellulitis Code(s): L03.90 - Cellulitis, unspecified Status: Acute (3) Seizure disorder Code(s): G40.909 - Epilepsy, unspecified, not intractable, without status epilepticus Status: Acute - Plan This is a 62-year-old Homeless male with a PMH of Seizure Disorder, Legally Blind and CVA who presented to ER with complaints of bilateral lower extremity redness and swelling x5 days. Sepsis, secondary to bilateral lower extremity cellulitis -Leukocytosis resolving -Blood cultures no growth -Continue Keflex and Bactrim -DVT studies negative RUE phlebitis -Elevation, warm compresses Mood d/o -Risperdal and Zoloft per psych -Calm and cooperative Seizure d/o -continue Keppra -Seizure precaution Deconditioning - PT/OT consulted. CM is working on SNF placement. Full code. [facility]. Waiting for SNF arrangement. Patient can be discharged to SNF. (1) Sepsis Qualifiers: Sepsis type: sepsis due to unspecified organism Qualified Code(s): A41.9 - Sepsis, unspecified organism (2) Cellulitis Qualifiers: Site of cellulitis: extremity Site of cellulitis of extremity: lower extremity Laterality: left Qualified Code(s): L03.116 - Cellulitis of left lower limb
[2017-10-28] MEDS: clonazePAM 0.5 MG Tablet PO PRN (20:19)
[2017-10-28] MEDS: Zolpidem Tartrate 5 MG Tablet PO PRN (21:38)
[2017-10-29] MEDS: clonazePAM 0.5 MG Tablet PO PRN (06:07)
[2017-10-29] MEDS: Sod Chloride 0.9% Inj 1,000 ML IV.CONT SCH (06:08)
[2017-10-29] MEDS: levETIRAcetam 500 MG Tablet PO SCH ×2 (08:39→21:38)
[2017-10-29] MEDS: Enoxaparin Inj 40 MG/0.4 ML Syringe SQ SCH (08:39)
[2017-10-29] MEDS: Senna/Docusate Sodium 8.6/50 MG Tablet PO SCH ×2 (08:39→21:38)
[2017-10-29] MEDS: Sertraline 100 MG Tablet PO SCH ×2 (08:39→21:38)
--- NOTE | 2017-10-29 10:58 | P.PN ---
Subjective Interval history: Follow-up for lower extremity cellulitis. Patient is doing well. No fever, chills. However, he complains of left earache. Physical Exam Vital signs: Vital Signs 10/28/17 13:35 10/28/17 13:38 10/28/17 16:00 Temperature 98.5 F Pulse Rate 63 105 H 70 Respiratory Rate 18 Blood Pressure 105/55 L Pulse Oximetry 99 10/28/17 16:51 10/28/17 20:00 10/29/17 00:00 Temperature 98.8 F 98.3 F Pulse Rate 73 94 H Respiratory Rate 16 20 20 Blood Pressure 112/67 122/70 Pulse Oximetry 98 93 L 10/29/17 02:45 10/29/17 04:00 10/29/17 04:03 Temperature 98 F Pulse Rate 62 65 Respiratory Rate 18 20 Blood Pressure 125/64 Pulse Oximetry 94 L 10/29/17 07:00 10/29/17 07:53 10/29/17 08:00 Temperature 96.7 F L Pulse Rate 69 72 Respiratory Rate 12 16 Blood Pressure 107/61 Pulse Oximetry 94 L Intake & Output 10/28/17 10/29/17 10/29/17 18:59 06:59 18:59 Intake Total 1225 / 1225 320 / 320 Balance 1225 / 1225 320 / 320 Weight 91.2 kg Intake: Oral 1225 / 1225 320 / 320 Other: # Voids 8 3 Date of Last Bowel Movement 10/28/17 10/28/17 # Bowel Movements 1 Narrative: GENERAL: This is a well-nourished, well-developed patient, in no apparent distress. SKIN: Warm and dry. Bilateral lower extremity erythema, edema noted right more than the left. Open wounds to the left lower extremity clean, dry. Open wounds to right lower extremity clean, dry. HEENT: Normocephalic. Pupils equal round and reactive. Nose without bleeding. Airway patent. NECK: Trachea midline. No JVD. Supple. CARDIOVASCULAR: Regular rate and rhythm without murmurs, gallops, or rubs. RESPIRATORY: Clear to auscultation. Breath sounds equal bilaterally. No wheezes , rales, or rhonchi. GASTROINTESTINAL: Abdomen soft, non-tender, nondistended. Bowel Sounds normoactive x4. MUSCULOSKELETAL: Extremities without clubbing, cyanosis. Bilateral lower extremity +1 edema, right greater than the left. NEUROLOGICAL: Awake and alert. Oriented to time, place, person. No focal neuro deficit. Moves all extremities. Normal speech. Results - Labs CBC & Chem 7: 10/26/17 06:24 10/26/17 06:24 Assessment and Plan - Assessment (1) Sepsis Code(s): A41.9 - Sepsis, unspecified organism Status: Acute (2) Cellulitis Code(s): L03.90 - Cellulitis, unspecified Status: Acute (3) Seizure disorder Code(s): G40.909 - Epilepsy, unspecified, not intractable, without status epilepticus Status: Acute - Plan This is a 62-year-old Homeless male with a PMH of Seizure Disorder, Legally Blind and CVA who presented to ER with complaints of bilateral lower extremity redness and swelling x5 days. Sepsis, secondary to bilateral lower extremity cellulitis -Leukocytosis resolving -Blood cultures no growth -Continue Keflex and Bactrim -DVT studies negative RUE phlebitis -Elevation, warm compresses Mood d/o -Risperdal and Zoloft per psych -Calm and cooperative Seizure d/o -continue Keppra -Seizure precaution Left earache - Will start Dexamethasone drops and Ofloxacin drop. Cipro drops are not available. Cirpo-dex upon discharge. Deconditioning - PT/OT consulted. CM is working on SNF placement. Full code. [facility]. Waiting for SNF arrangement. Patient can be discharged to SNF. (1) Sepsis Qualifiers: Sepsis type: sepsis due to unspecified organism Qualified Code(s): A41.9 - Sepsis, unspecified organism (2) Cellulitis Qualifiers: Site of cellulitis: extremity Site of cellulitis of extremity: lower extremity Laterality: left Qualified Code(s): L03.116 - Cellulitis of left lower limb
[2017-10-29] MEDS ORDERED: Ciprofloxacin 0.3% Opth Drops 5 ML Bottle RIGHT EAR SCH (13:00)
[2017-10-29] MEDS: Dexamethasone 0.1% Opth Drops 5 ML Bottle RIGHT EYE SCH ×2 (14:31→21:37)
[2017-10-29] MEDS: Zolpidem Tartrate 5 MG Tablet PO PRN (21:38)
[2017-10-30] MEDS: clonazePAM 0.5 MG Tablet PO PRN ×2 (06:45→21:28)
[2017-10-30] MEDS: levETIRAcetam 500 MG Tablet PO SCH ×2 (08:00→21:21)
[2017-10-30] MEDS: Sertraline 100 MG Tablet PO SCH ×2 (08:00→21:20)
[2017-10-30] MEDS: Senna/Docusate Sodium 8.6/50 MG Tablet PO SCH ×2 (08:00→21:21)
[2017-10-30] MEDS: Enoxaparin Inj 40 MG/0.4 ML Syringe SQ SCH (08:01)
[2017-10-30] MEDS: OFLOXACIN 0.3% RIGHT EAR SCH (08:03)
[2017-10-30] MEDS: Dexamethasone 0.1% Opth Drops 5 ML Bottle RIGHT EYE SCH ×2 (08:03→21:22)
--- NOTE | 2017-10-30 14:30 | P.PN ---
Subjective Interval history: Follow-up for lower extremity cellulitis. Patient is currently doing well. He reports improvements of his right ear pain. No fever, chills. Physical Exam Vital signs: Vital Signs 10/29/17 15:15 10/29/17 16:00 10/29/17 17:22 Temperature Pulse Rate 63 Respiratory Rate 12 12 Blood Pressure Pulse Oximetry 10/29/17 20:00 10/30/17 00:00 10/30/17 01:31 Temperature 99.2 F 97.6 F Pulse Rate 67 65 Respiratory Rate 20 20 18 Blood Pressure 110/87 129/74 Pulse Oximetry 99 97 10/30/17 04:00 10/30/17 08:00 10/30/17 12:00 Temperature 98.2 F 97.8 F 97.7 F Pulse Rate 64 66 66 Respiratory Rate 20 17 18 Blood Pressure 124/66 97/55 L 99/58 L Pulse Oximetry 97 96 97 Intake & Output 10/29/17 10/30/17 10/30/17 18:59 06:59 18:59 Intake Total 240 / 240 680 / 680 Balance 240 / 240 680 / 680 Weight 91 kg Intake: Oral 240 / 240 680 / 680 Other: # Voids 3 Date of Last Bowel Movement 10/28/17 10/29/17 10/29/17 # Bowel Movements 1 Results - Labs CBC & Chem 7: 10/26/17 06:24 10/26/17 06:24 Assessment and Plan - Assessment (1) Sepsis Code(s): A41.9 - Sepsis, unspecified organism Status: Acute (2) Cellulitis Code(s): L03.90 - Cellulitis, unspecified Status: Acute (3) Seizure disorder Code(s): G40.909 - Epilepsy, unspecified, not intractable, without status epilepticus Status: Acute - Plan This is a 62-year-old Homeless male with a PMH of Seizure Disorder, Legally Blind and CVA who presented to ER with complaints of bilateral lower extremity redness and swelling x5 days. Sepsis, secondary to bilateral lower extremity cellulitis -Leukocytosis resolving -Blood cultures no growth -Continue Keflex and Bactrim -DVT studies negative RUE phlebitis -Elevation, warm compresses Mood d/o -Risperdal and Zoloft per psych -Calm and cooperative Seizure d/o -continue Keppra -Seizure precaution Right earache - Cont Dexamethasone drops and Ofloxacin drop. Cipro drops are not available. Cirpo-dex upon discharge. Deconditioning - PT/OT consulted. CM is working on SNF placement. Full code. [facility]. Waiting for SNF arrangement. Patient can be discharged to SNF. (1) Sepsis Qualifiers: Sepsis type: sepsis due to unspecified organism Qualified Code(s): A41.9 - Sepsis, unspecified organism (2) Cellulitis Qualifiers: Site of cellulitis: extremity Site of cellulitis of extremity: lower extremity Laterality: left Qualified Code(s): L03.116 - Cellulitis of left lower limb
[2017-10-31] MEDS: clonazePAM 0.5 MG Tablet PO PRN ×2 (06:06→15:17)
[2017-10-31] MEDS: Senna/Docusate Sodium 8.6/50 MG Tablet PO SCH ×2 (09:16→21:06)
[2017-10-31] MEDS: Enoxaparin Inj 40 MG/0.4 ML Syringe SQ SCH (09:16)
[2017-10-31] MEDS: Dexamethasone 0.1% Opth Drops 5 ML Bottle RIGHT EYE SCH ×2 (09:16→21:07)
[2017-10-31] MEDS: Sertraline 100 MG Tablet PO SCH ×2 (09:16→21:07)
[2017-10-31] MEDS: levETIRAcetam 500 MG Tablet PO SCH ×2 (09:16→21:07)
[2017-10-31] MEDS: OFLOXACIN 0.3% RIGHT EAR SCH (09:16)
[2017-10-31] MEDS ORDERED: Sod Chloride 0.9% Inj 1,000 ML IV.SIG ONE (12:43)
--- NOTE | 2017-10-31 15:13 | P.PN ---
Subjective Interval history: Follow-up for lower extremity cellulitis. Patient's BP has been on the lower side. He reports some lightheadedness and dizziness. No CP, SOB, fever, chills. Physical Exam Vital signs: Vital Signs 10/30/17 15:44 10/30/17 16:00 10/30/17 16:15 Temperature 97.9 F Pulse Rate 60 60 Respiratory Rate 12 17 Blood Pressure 109/71 Pulse Oximetry 96 10/30/17 18:16 10/30/17 20:00 10/31/17 00:00 Temperature 98.1 F 98 F Pulse Rate 57 L 64 Respiratory Rate 12 17 16 Blood Pressure 111/61 115/72 Pulse Oximetry 95 95 10/31/17 04:00 10/31/17 06:50 10/31/17 08:00 Temperature 97.6 F 98.6 F Pulse Rate 52 L 66 Respiratory Rate 16 16 16 Blood Pressure 115/63 96/62 L Pulse Oximetry 95 96 10/31/17 08:10 10/31/17 12:00 Temperature Pulse Rate 57 L 55 L Respiratory Rate Blood Pressure Pulse Oximetry Intake & Output 10/30/17 10/31/17 10/31/17 18:59 06:59 18:59 Intake Total 240 / 240 300 / 300 Balance 240 / 240 300 / 300 Weight 91 kg Intake: Oral 240 / 240 300 / 300 Other: Date of Last Bowel Movement 10/29/17 Results - Labs CBC & Chem 7: 10/26/17 06:24 10/26/17 06:24 Assessment and Plan - Assessment (1) Sepsis Code(s): A41.9 - Sepsis, unspecified organism Status: Acute (2) Cellulitis Code(s): L03.90 - Cellulitis, unspecified Status: Acute (3) Seizure disorder Code(s): G40.909 - Epilepsy, unspecified, not intractable, without status epilepticus Status: Acute - Plan This is a 62-year-old Homeless male with a PMH of Seizure Disorder, Legally Blind and CVA who presented to ER with complaints of bilateral lower extremity redness and swelling x5 days. Sepsis, secondary to bilateral lower extremity cellulitis -Leukocytosis resolving -Blood cultures no growth -Continue Keflex and Bactrim -DVT studies negative Mild Hypotension - Will give 1 L NS bolus and then IV fluid at 75cc/hour. RUE phlebitis -Elevation, warm compresses Mood d/o -Risperdal and Zoloft per psych -Calm and cooperative Seizure d/o -continue Keppra -Seizure precaution Right earache - Cont Dexamethasone drops and Ofloxacin drop. Cipro drops are not available. Cirpo-dex upon discharge. Deconditioning - PT/OT consulted. CM is working on SNF placement. Full code. Lovenox. If patient remains hemodynamically stable, he can be discharged on 11/01/2017 (1) Sepsis Qualifiers: Sepsis type: sepsis due to unspecified organism Qualified Code(s): A41.9 - Sepsis, unspecified organism (2) Cellulitis Qualifiers: Site of cellulitis: extremity Site of cellulitis of extremity: lower extremity Laterality: left Qualified Code(s): L03.116 - Cellulitis of left lower limb
[2017-10-31] MEDS: Zolpidem Tartrate 5 MG Tablet PO PRN (21:07)
[2017-11-01] MEDS: Dexamethasone 0.1% Opth Drops 5 ML Bottle RIGHT EYE SCH ×2 (08:40→21:13)
[2017-11-01] MEDS: OFLOXACIN 0.3% RIGHT EAR SCH (08:40)
[2017-11-01] MEDS: Sertraline 100 MG Tablet PO SCH ×2 (08:40→21:14)
[2017-11-01] MEDS: levETIRAcetam 500 MG Tablet PO SCH ×2 (08:40→21:14)
[2017-11-01] MEDS: Senna/Docusate Sodium 8.6/50 MG Tablet PO SCH ×2 (08:40→21:14)
[2017-11-01] MEDS: Enoxaparin Inj 40 MG/0.4 ML Syringe SQ SCH (08:40)
[2017-11-01] MEDS: clonazePAM 0.5 MG Tablet PO PRN (08:45)
--- NOTE | 2017-11-01 14:29 | P.PNIM ---
Subjective Interval history: Discharge pending from 10/27/17. No complaints. Awaiting placement. Physical Exam Vital signs: Vital Signs 10/31/17 15:18 10/31/17 16:00 10/31/17 16:50 Temperature Pulse Rate 56 L 61 63 Respiratory Rate Blood Pressure 106/60 127/80 Pulse Oximetry 10/31/17 20:00 11/01/17 00:00 11/01/17 00:18 Temperature 97.6 F 97.8 F Pulse Rate 56 L 65 52 L Respiratory Rate 16 16 Blood Pressure 112/63 118/68 Pulse Oximetry 98 98 11/01/17 00:21 11/01/17 04:00 11/01/17 08:00 Temperature 98.6 F 97.8 F Pulse Rate 66 17 L Respiratory Rate 18 16 17 Blood Pressure 102/58 L 105/67 Pulse Oximetry 98 95 11/01/17 09:05 11/01/17 12:00 Temperature 98.8 F Pulse Rate 52 L 64 Respiratory Rate 20 Blood Pressure 119/59 L Pulse Oximetry 96 Intake & Output 10/31/17 11/01/17 11/01/17 18:59 06:59 18:59 Intake Total 1000 / 1000 Balance 1000 / 1000 Weight 87.2 kg Intake: IV 1000 / 1000 NS Inj 1,000 ML @ Wide Open IV. 1000 / 1000 SIG BOLUS ONE Rx#:[id number] Other: # Voids 3 3 Date of Last Bowel Movement 10/31/17 10/31/17 # Bowel Movements 2 Results - Labs CBC & Chem 7: 10/26/17 06:24 10/26/17 06:24 Assessment and Plan - Assessment (1) Sepsis Code(s): A41.9 - Sepsis, unspecified organism Status: Acute (2) Cellulitis Code(s): L03.90 - Cellulitis, unspecified Status: Acute (3) Seizure disorder Code(s): G40.909 - Epilepsy, unspecified, not intractable, without status epilepticus Status: Acute - Plan 62-year-old Blind Homeless male presented to ER with complaints of bilateral lower extremity redness and swelling x5 days. Sepsis, secondary to bilateral lower extremity cellulitis Continue Keflex and Bactrim Mild Hypotension Resolved RUE phlebitis No DVT Continue warm compresses Mood d/o Mood stable Continue Risperdal and Zoloft Seizure d/o continue Keppra Right earache Continue Dexamethasone drops and Ofloxacin drop. Cirpo-dex upon discharge. Deconditioning PT/OT SNF placement. DVT Prophylaxis Lovenox until placement available. (1) Sepsis Qualifiers: Sepsis type: sepsis due to unspecified organism Qualified Code(s): A41.9 - Sepsis, unspecified organism (2) Cellulitis Qualifiers: Site of cellulitis: extremity Site of cellulitis of extremity: lower extremity Laterality: left Qualified Code(s): L03.116 - Cellulitis of left lower limb
[2017-11-01] MEDS: Zolpidem Tartrate 5 MG Tablet PO PRN (21:14)
[2017-11-02] MEDS: Enoxaparin Inj 40 MG/0.4 ML Syringe SQ SCH (08:02)
[2017-11-02] MEDS: levETIRAcetam 500 MG Tablet PO SCH (08:03)
[2017-11-02] MEDS: Sertraline 100 MG Tablet PO SCH (08:03)
[2017-11-02] MEDS: Senna/Docusate Sodium 8.6/50 MG Tablet PO SCH (08:03)
[2017-11-02] MEDS: Dexamethasone 0.1% Opth Drops 5 ML Bottle RIGHT EYE SCH (08:04)
[2017-11-02] MEDS: OFLOXACIN 0.3% RIGHT EAR SCH (08:04)
[2017-11-02] MEDS: clonazePAM 0.5 MG Tablet PO PRN ×2 (08:10→19:20)
--- NOTE | 2017-11-02 15:07 | P.PNIM ---
Subjective Interval history: Patient is working with PT today. Patient has been discharged on 10/27/2017. Physical Exam Vital signs: Vital Signs 11/01/17 15:43 11/01/17 16:00 11/01/17 18:13 Temperature 98.8 F Pulse Rate 62 62 Respiratory Rate 22 16 Blood Pressure 116/58 L Pulse Oximetry 98 11/01/17 20:00 11/01/17 21:50 11/02/17 00:00 Temperature 98.7 F 98.9 F Pulse Rate 58 L 60 Respiratory Rate 14 18 14 Blood Pressure 121/64 120/60 Pulse Oximetry 95 95 11/02/17 03:10 11/02/17 04:00 11/02/17 08:00 Temperature 98.4 F 97.7 F Pulse Rate 59 L 71 Respiratory Rate 20 14 20 Blood Pressure 118/65 108/71 Pulse Oximetry 95 97 11/02/17 12:00 Temperature 99.9 F H Pulse Rate 61 Respiratory Rate 20 Blood Pressure 113/71 Pulse Oximetry 95 Intake & Output 11/01/17 11/02/17 11/02/17 18:59 06:59 18:59 Intake Total 480 / 480 Output Total 0 / 0 2 / 2 Balance 0 / 0 478 / 478 Weight 87.2 kg Intake: Oral 480 / 480 Output: Urine 0 / 0 2 / 2 Other: Post Void Residual 250 # Voids 1 Date of Last Bowel Movement 10/31/17 11/01/17 11/01/17 Results - Labs CBC & Chem 7: 10/26/17 06:24 10/26/17 06:24 Assessment and Plan - Assessment (1) Sepsis Code(s): A41.9 - Sepsis, unspecified organism Status: Acute (2) Cellulitis Code(s): L03.90 - Cellulitis, unspecified Status: Acute (3) Seizure disorder Code(s): G40.909 - Epilepsy, unspecified, not intractable, without status epilepticus Status: Acute - Plan 62-year-old Blind Homeless male presented to ER with complaints of bilateral lower extremity redness and swelling x5 days. No significant changes. Awaiting placement placement options. Sepsis, secondary to bilateral lower extremity cellulitis Continue Keflex and Bactrim Mild Hypotension Resolved RUE phlebitis No DVT Continue warm compresses Mood d/o Mood stable Continue Risperdal and Zoloft Seizure d/o continue Keppra Right earache Continue Dexamethasone drops and Ofloxacin drop. Cirpo-dex upon discharge. Deconditioning PT/OT SNF placement. DVT Prophylaxis Lovenox until placement available. (1) Sepsis Qualifiers: Sepsis type: sepsis due to unspecified organism Qualified Code(s): A41.9 - Sepsis, unspecified organism (2) Cellulitis Qualifiers: Site of cellulitis: extremity Site of cellulitis of extremity: lower extremity Laterality: left Qualified Code(s): L03.116 - Cellulitis of left lower limb
[2017-11-02] MEDS ORDERED: Dextrose 5%/NaCl 0.45% Inj 1,000 ML IV.CONT SCH (18:00)
[2017-11-02] MEDS ORDERED: Dextrose 5%/NaCl 0.9% Inj 1,000 ML IV.CONT SCH (18:00)
--- NOTE | 2017-12-08 07:57 | P.DS ---
Date of admission: 10/21/17 18:51 Primary care physician: No Primary Care Physician Brief History from admission: This is a 62-year-old Homeless male with a PMH of Seizure Disorder, Legally Blind and CVA who presented to ER with complaints of bilateral lower extremity redness and swelling x5 days. States he normally sleeps outside a friend's store on the concrete, believes he was bitten by a spider. Reports subjective fever and chills. Notes "blister" on his leg and arm that popped on its own today. On arrival, BP 110/59, HR 104, O2 sat 100% on RA, Temp 101.4. WBC 17.6. UA negative. CXR no acute findings. LE Doppler negative for DVT. S/p Vanc/Zosyn in ER. DS: Diagnosis - Discharge Diagnosis (1) Sepsis Status: Acute (2) Cellulitis Status: Acute (3) Seizure disorder Status: Acute DS: Medications - Discharge Medications Prescriptions: hydrocodone-acetaminophen 1 tab PO Q6H PRN #12 tab PRN Reason: Pain (Scale Score 7-10) zolpidem 5 mg PO HS PRN #10 tab PRN Reason: Sleep DS: Summary Hospital Course: 62-year-old Blind Homeless male presented to ER with complaints of bilateral lower extremity redness and swelling x5 days. No significant changes. Awaiting placement placement options. Sepsis, secondary to bilateral lower extremity cellulitis Continue Keflex and Bactrim Mild Hypotension Resolved RUE phlebitis No DVT Continue warm compresses Mood d/o Mood stable Continue Risperdal and Zoloft Seizure d/o continue Keppra Right earache Continue Dexamethasone drops and Ofloxacin drop. Cirpo-dex upon discharge. - Time Spent with Patient Total time spent providing and/or coordinating discharge services: Less than 30 minutes Exam Narrative: GENERAL: Alert, NAD. SKIN: Warm and dry. Mild erythema in lower ext. HEAD: Normocephalic. EYES: No scleral icterus. No injection or drainage. NECK: Supple, trachea midline. No JVD or lymphadenopathy. CARDIOVASCULAR: Regular rate and rhythm without murmurs, gallops, or rubs. RESPIRATORY: Breath sounds equal bilaterally. No accessory muscle use. GASTROINTESTINAL: Abdomen soft, non-tender, nondistended. MUSCULOSKELETAL: No cyanosis, or edema. BACK: Nontender without obvious deformity. No CVA tenderness. Results Procedures completed during hospitalization: None. - Impressions ITS Impressions Chest X-Ray 10/21/17 14:04 CONCLUSION: No acute abnormality seen. Venous Doppler Study 10/24/17 00:00 CONCLUSION: 1. The study is negative for lower extremity deep venous thrombosis. Discharge Plan - Discharge Disposition Patient Disposition: 03 Discharge to SNF - Discharge Condition Condition: Stable - Discharge Order Discharge Orders: Discharge Order (Routine); Ordered 10/27/17 Ordered By: Thao Nelson - Discharge Details Anticipated Discharge Date: 10/27/17 Discharge Comment: Discharge when SNF approved. - Physicians Team Primary Care Provider: Primary Care Wendy,No Attending Provider: Satya Perez Other Providers: Renny Jaramillo MD
== END 2017-11-02 21:06 ==
LOC: NEPD 13:29 → NEDA 18:51 → NEDH 10-22 05:46 → N05 10-22 14:51
PROVIDERS: ADMIT Hospitalist; ATTEND Hospitalist